=== PATIENT | female | born 1950 | race Caucasian/White ===

== ENCOUNTER 2020-04-30 10:40 | Outpatient (CLI) | payer MEDICARE, OTHER, SELFPAY ==
--- NOTE | 2020-04-30 10:47 | MM_ITS ---
WS: [id number] Bilateral screening digital mammogram, 04/30/2020 Clinical Data: SCREENING Comparison: 04/29/2019, 03/13/2018, 03/12/2017, 02/29/2016, 02/22/2015, 02/03/2014, 01/30/2013, 12/08/2011, 11/23, 02/12/2009, 01/21/2008, 01/18/2007. Findings: The breast parenchymal pattern shows heterogeneous density No spiculated masses or clustered calcific ations are seen. There are no secondary signs of carcinoma. There is a mole marker on the right breas t. MM/[place] [id number] Impression: 1. Negative bilateral mammogram unchanged. 2. Recommend annual screening mammograms. BIRADS: 1-Negative FOLLOW UP: 1 Year Follow-up The CAD food checkers and cashiers supervisor was used.
== END 2020-04-30 10:41 | disposition home or self-care (01) ==
LOC: RADSHAW 10:44
PROVIDERS: PCP Nurse Practitioner Family; Visit Provider Nurse Practitioner Family
DX: Z12.31 Encounter for screening mammogram for malignant neoplasm of breast (principal)
CPT/HCPCS: 77067

== ENCOUNTER 2020-07-29 00:12 | Observation (INO) | payer MEDICARE, OTHER, SELFPAY ==
[2020-07-29] VITALS (14 sets, daily range): BP systolic 136–193; BP diastolic 63–104; PULSE 74–111; RESP 11–22; TEMP 36.3–37.1; O2SAT 94–100; BMI 33.3
--- NOTE | 2020-07-29 00:14 | ECG_ITS ---
[facility] Test Date: 2020-07-29 Pat Name: Yesy Flores Department: Room: Gender: Female Email Campaign Specialist: : 1950 Requested By: Dee Dee Smith Order Number: [id number] Rachell MD: Alva Vera M.D. Measurements Intervals [place] Rate: 103 P: 50 UT: 156 QRS: 12 QRSD: 65 T: 47 QT: 328 QTc: 431 Interpretive Statements SINUS TACHYCARDIA ABNORMAL RHYTHM ECG No previous ECG available for comparison Electronically Signed On 07-29-2020 20:24:33 LIQUOR ESTABLISHMENT MANAGER by Alva Vera M.D. [id number]
--- NOTE | 2020-07-29 00:14 | XR_ITS ---
WS: [id number] Portable AP upright chest, 07/29/2020 Clinical Data: cp Comparison: None. Findings: No nodules, masses or effusions are seen. The heart is normal. The pulmonary vascularity is not increased. No pneumonia or pneumothorax is seen. The aortic arch and descending aorta show minim al calcification and tortuosity. XR/XR chest 1V portable [id number] Impression: Atherosclerosis.
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
--- NOTE | 2020-07-29 00:39 | W.ED.CHESTPA ---
HPI - Chest Pain General: Chief Complaint: Chest Pain Stated Complaint: chest pain Time Seen by Provider: 07/29/20 00:21 Source: patient Mode of arrival: ambulatory Limitations: no limitations History of Present Illness: HPI narrative: 69-year-old female who states over the last 2 days she has had dizziness. She states that anytime she walks she feels like she is drunk and is ataxic and feels nauseous and diaphoretic. States she also had a slight pain in her chest as well. She denies any pain currently but states she continues to be dizzy. Denies any vomiting. States it seems to be worse with movement. Denies any shortness of breath. Denies any focal weakness. Associated symptoms: Reports nausea; Deny dyspnea or fever(s) Review of Systems Const: Denies: fever(s), chills, body aches or change in appetite Eyes: Denies: blurry vision or eye discomfort ENMT: Denies: throat pain or dental pain Card: Denies: chest pain Resp: Denies: dyspnea GI: Reports: nausea : Denies: dysuria Musc: Denies: neck pain or back pain Skin/Breast: Denies: rash Neuro: Reports: difficulty walking and dizziness Psych: Denies: depression Jm/Lymph: Denies: easy bruising All/Imm: Denies: urticaria Physical Exam Const: COMMON NORMALS: no acute distress, patient oriented x3 and healthy appearing HENMT: COMMON NORMALS: normocephalic and atraumatic HEAD & SCALP: normocephalic and atraumatic Eye: COMMON NORMALS: Equal, round and reactive pupils present and EOMs intact bilaterally PUPIL: Yes Equal, round and reactive pupils present Neck/C-Spine: COMMON NORMALS: full ROM and supple Chest: COMMONS NORMALS: normal inspection of the chest and normal palpation of entire chest wall Resp: COMMON NORMALS: normal respiratory effort, No retractions, No use of accessory muscles and clear to auscultation bilaterally AUSCULTATION: clear to auscultation bilaterally Cardio: COMMON NORMALS: regular rate, regular rhythm and No murmurs present (Cardio) RATE: regular rate RHYTHM: regular rhythm GI: COMMON NORMALS: Normal to inspection, nondistended, normoactive bowel sounds present, Soft to palpation, non-tender and no masses PALPATION: Yes Soft to palpation Extremity: COMMON NORMALS: normal to inspection and full ROM Neuro: COMMON NORMALS: patient oriented x3, moves all extremities and no focal motor deficits Psych: COMMON NORMALS: mental status grossly normal, Normal thought process present and cooperative THOUGHT PROCESS: Normal thought process present Skin: COMMON NORMALS: no rashes or lesions noted and no wounds GENERAL SKIN EXAM: no rashes or lesions noted Course Vital Signs: Vital signs: Vital Signs Temperature 97.3 F L 07/29/20 00:20 Pulse Rate 84 07/29/20 02:36 Respiratory Rate 12 07/29/20 02:36 Blood Pressure 159/63 07/29/20 02:36 Pulse Oximetry 96 07/29/20 02:36 MDM - Chest Pain MDM Narrative: Medical decision making narrative: Edie presents here with vertigo along with high blood pressure and chest pain. Her CT scan here is normal and her vertigo is improved. She has not had any chest pain here. I did speak to her and will admit her for observation at this time. She has no signs of acute stroke with her vertigo. Her symptoms been going on for 2 to 3 days and she is not a TPA candidate due to length Lab Data: Labs: Lab Results 07/29/20 07/29/20 07/29/20 Range/Units 00:25 00:25 00:25 WBC 12.6 H (4.0-10.0) 10^3/ uL RBC 4.57 (4.1-5.3) 10^6/u L Hgb 13.3 (11.5-15.3) g/dL Hct 40.0 (37.0-47.0) % MCV 87.5 (81-99) fL MCH 29.1 (28.0-34.0) pg MCHC 33.3 (30.0-36.0) g/dL RDW 12.8 (12.1-15.1) % Plt Count 388 (130-400) 10^3/c mm MPV 9.9 (7.4-10.4) fL Neut % (Auto) 42.4 % Lymph % (Auto) 46.0 % [place] % (Auto) 7.9 % Eos % (Auto) 2.4 % Baso % (Auto) 0.9 % Neut # (Auto) 5.35 (1.8-7.7) 10^3/u L Lymph # (Auto) 5.8 H (0.8-4.8) 10^3/u L [place] # (Auto) 1.0 H (0.2-0.9) 10^3/u L Eos # (Auto) 0.3 (0.0-0.8) 10^3/u L Baso # (Auto) 0.1 (0.0-0.1) 10^3/u L Nucleated RBC % (a uto) 0 % Nucleated RBCs # 0.0 /100WBC Sodium 135 L (136-145) mmol/L Potassium 3.9 (3.5-5.1) mmol/L Chloride 97 L (98-107) mmol/L Carbon Dioxide 26 (22-29) mmol/L Anion Gap 15.9 (5-19) BUN 13 (8-23) mg/dL Creatinine 0.6 (0.5-0.9) mg/dL GFR Calculation Not Reportable Glucose 170 H (65-115) mg/dL Calculated Osmolal ity 284 L (285-295) mOsm/k g Calcium 9.6 (8.5-10.5) mg/dL Total Bilirubin 0.2 (0.15-1.2) mg/dL AST 16 (0-32) U/L ALT 26 (0-33) U/L Alkaline Phosphata se 100 (35-105) IU/L Troponin T Baselin e 6 (0-10) ng/L Troponin T 120 Min bree (0-10) ng/L Delta Troponin T (0-10) ABS# Total Protein 7.1 (6.6-8.7) g/dL Albumin 4.3 (3.5-5.2) g/dL Globulin 2.8 (1.3-4.6) g/dL 07/29/20 Range/Units 01:52 WBC (4.0-10.0) 10^3/ uL RBC (4.1-5.3) 10^6/u L Hgb (11.5-15.3) g/dL Hct (37.0-47.0) % MCV (81-99) fL MCH (28.0-34.0) pg MCHC (30.0-36.0) g/dL RDW (12.1-15.1) % Plt Count (130-400) 10^3/c mm MPV (7.4-10.4) fL Neut % (Auto) % Lymph % (Auto) % [place] % (Auto) % Eos % (Auto) % Baso % (Auto) % Neut # (Auto) (1.8-7.7) 10^3/u L Lymph # (Auto) (0.8-4.8) 10^3/u L [place] # (Auto) (0.2-0.9) 10^3/u L Eos # (Auto) (0.0-0.8) 10^3/u L Baso # (Auto) (0.0-0.1) 10^3/u L Nucleated RBC % (a uto) % Nucleated RBCs # /100WBC Sodium (136-145) mmol/L Potassium (3.5-5.1) mmol/L Chloride (98-107) mmol/L Carbon Dioxide (22-29) mmol/L Anion Gap (5-19) BUN (8-23) mg/dL Creatinine (0.5-0.9) mg/dL GFR Calculation Glucose (65-115) mg/dL Calculated Osmolal ity (285-295) mOsm/k g Calcium (8.5-10.5) mg/dL Total Bilirubin (0.15-1.2) mg/dL AST (0-32) U/L ALT (0-33) U/L Alkaline Phosphata se (35-105) IU/L Troponin T Baselin e (0-10) ng/L Troponin T 120 Min bree 6.43 (0-10) ng/L Delta Troponin T 0.43 (0-10) ABS# Total Protein (6.6-8.7) g/dL Albumin (3.5-5.2) g/dL Globulin (1.3-4.6) g/dL Imaging Data^: CXR: Attestation: I personally reviewed and interpreted this imaging study as follows: My impression: no acute abnormality EKG Data^: EKG 1: Attestation: I personally reviewed and interpreted this EKG as follows: EKG interpretation date: 07/29/20 EKG interpretation time: 00:21 Interpretation: sinus tach hr [address] or t wave abnormalities qrs 65 qtc 388 Discharge Plan Discharge Patient Disposition: Admitted As Inpatient Clinical Impression: Vertigo Chest pain Qualifiers: Chest pain type: unspecified Qualified Code(s): R07.9 - Chest pain, unspecified Hypertension Qualifiers: Hypertension type: unspecified Qualified Code(s): I10 - Essential (primary) hypertension Condition: Stable Coding Level of Care Code ED Scrip Clerk for Hu Fwd Exam Comprehensive
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
[2020-07-29 00:53] LABS: Basophils # 0.1 10^3/uL (0.0-0.1); Basophils % 0.9 %; Eosinophils # 0.3 10^3/uL (0.0-0.8); Eosinophils % 2.4 %; Hemoglobin 13.3 g/dL (11.5-15.3); Lymphocytes # 5.8 10^3/uL (0.8-4.8); Mean Corpuscular HGB Conc 33.3 g/dL (30.0-36.0); Mean Corpuscular Hemoglobin 29.1 pg (28.0-34.0); Mean Corpuscular Volume 87.5 fL (81-99); Mean Platelet Volume 9.9 fL (7.4-10.4); Monocytes % 7.9 %; Neutrophils # 5.35 10^3/uL (1.8-7.7); Neutrophils % 42.4 %; Nucleated Red Blood Cells % 0 %; Platelet Count 388 10^3/cmm (130-400); Red Blood Count 4.57 10^6/uL (4.1-5.3); Red Cell Distribution Width 12.8 % (12.1-15.1); White Blood Count 12.6 10^3/uL (4.0-10.0)
--- NOTE | 2020-07-29 01:05 | PC.NURSE ---
pt states she adm 324 of ASA at home around 2100. notified. OK to hold on med adm
[2020-07-29 01:41] LABS: Alanine Aminotransferase 26 U/L (0-33); Albumin Level 4.3 g/dL (3.5-5.2); Alkaline Phosphatase 100 IU/L (35-105); Anion Gap 15.9 (5-19); Aspartate Amino Transferase 16 U/L (0-32); Blood Urea Nitrogen 13 mg/dL (8-23); Calcium 9.6 mg/dL (8.5-10.5); Carbon Dioxide 26 mmol/L (22-29); Chloride 97 mmol/L (98-107); Globulin 2.8 g/dL (1.3-4.6); Glucose 170 mg/dL (65-115); Osmolality Calculated 284 mOsm/kg (285-295); Potassium 3.9 mmol/L (3.5-5.1); Sodium 135 mmol/L (136-145); Total Bilirubin 0.2 mg/dL (0.15-1.2); Total Protein 7.1 g/dL (6.6-8.7)
[2020-07-29 01:43] LABS: Troponin(5th) Baseline 6 ng/L (0-10)
[2020-07-29 01:57] LABS: Slide Review Slide Review Perform
--- NOTE | 2020-07-29 02:14 | ECG_ITS ---
[facility] Test Date: 2020-07-29 Pat Name: Yesy Flores Department: Room: Gender: Female [employer] Officer: : 1950 Requested By: Dee Dee Smith Order Number: [id number] Rachell MD: Alva Vera M.D. Measurements Intervals [place] Rate: 87 P: 64 ME: 180 QRS: 6 QRSD: 85 T: 47 QT: 360 QTc: 434 Interpretive Statements SINUS RHYTHM No previous ECG available for comparison Electronically Signed On 07-29-2020 20:30:06 MALE INFERTILITY SPECIALIST by Alva Vera M.D. [id number]
[2020-07-29 02:30] LABS: Troponin 5 2HR 6.43 ng/L (0-10); Troponin 5 2HR Delta 0.43 ABS# (0-10)
--- NOTE | 2020-07-29 02:41 | P.HP_ITS ---
Providers/Chief Complaint Primary Care Provider: Mirian Pandey Chief Complaint: chest pain History of Present Illness Yesy Flores is a 69 year old female with a history of diabetes mellitus type 2 and hyperlipidemia presented to the emergency department with a complaint of sudden onset of dizziness and vertigo with associated diaphoresis and clamminess. Patient was concerned he was having a heart attack or stroke. She denies any chest pain. She was tachycardic on arrival. Her initial troponin in the ED is negative. EKG showed no significant ischemic changes. Patient's systolic blood pressure was severely elevated to the 190s. She denies history of hypertension. She also mention she has been getting intermittent vertigo with is triggered by changes in head position occur mostly at night. Per report patient was quite anxious when she presented. She is hospitalized for further evaluation and management. Review of Systems Narrative: She denied any fever, denied any headache, no limb weakness, no problem with speech. Except as documented all other systems are negative. Medications/Allergies Allergies Allergy/AdvReac Type Severity Reaction Status Date / Time Cssexlc-Nrg-Qey Reductase Allergy ADV-Weaknes Verified 07/29/20 00:25 Inhibitor s Sulfa (Sulfonamide Allergy ALGY-Rash Verified 07/29/20 00:25 Antibiotics) PFSH Acute PFSH: Medical History (Updated 07/29/20 @ 07:33 by Adama Leal MD) Accelerated hypertension Cervical herniated disc Hyperlipidemia Hypertension Hypothyroidism Sciatica Type 2 diabetes mellitus Vertigo Family History (Updated 07/29/20 @ 03:28 by Adama Leal MD) Father CAD (coronary artery disease) Mother Stroke Social History (Updated 07/29/20 @ 03:28 by Adama Leal MD) Smoking and tobacco status: never smoked Alcohol intake: never Substance/Drug Use: never Housing: House Vitals/I&O/Wt Last Vital Signs Temp 97.3 F L 07/29/20 00:20 Pulse 84 07/29/20 02:36 Resp 12 07/29/20 02:36 BP 159/63 07/29/20 02:36 Pulse Ox 96 07/29/20 02:36 Weight last 48 hrs Weight 74.843 kg Physical Exam Const: COMMON NORMALS: no acute distress, patient oriented x3, alert and well nourished HENMT: COMMON NORMALS: normocephalic, atraumatic and hearing grossly normal bilaterally MOUTH: Normal oral and palatal mucosa present Eye: COMMON NORMALS: Equal, round and reactive pupils present, EOMs intact bilaterally, conjunctivae normal and no scleral icterus EOM: No Nystagmus present Neck/C-Spine: COMMON NORMALS: no lymphadenopathy, supple, no JVD and Thyroid normal Lymph: LYMPHATIC: no lymphadenopathy noted Chest: COMMONS NORMALS: normal inspection of the chest and normal palpation of entire chest wall Resp: COMMON NORMALS: normal respiratory effort, No use of accessory muscles and clear to auscultation bilaterally Cardio: COMMON NORMALS: regular rhythm, S1 normal heart sound present and S2 normal heart sound present RATE: tachycardic GI: COMMON NORMALS: Normal to inspection, nondistended, normoactive bowel sounds present, Soft to palpation, non-tender and No hepatosplenomegaly present : COMMON NORMALS: Yes no CVA tenderness Back/Pelvis: COMMON NORMALS: no CVA tenderness and thoraco-lumbar ROM normal Extremity: COMMON NORMALS: normal to inspection, no clubbing, cyanosis or edema and no pedal edema Neuro: COMMON NORMALS: patient oriented x3, CN's II-XII intact bilaterally, no focal motor deficits and no sensory deficits noted Psych: COMMON NORMALS: mental status grossly normal, Normal thought process present, cooperative, normal affect and speech normal Skin: COMMON NORMALS: no rashes or lesions noted, turgor normal and no jaundice Data : 07/29/20 00:25 07/29/20 00:25 A&P Assessment and plan (1) Vertigo: Status: Acute (2) Accelerated hypertension: Status: Acute (3) Type 2 diabetes mellitus: Status: Acute (4) Hyperlipidemia: Status: Acute (5) Hypothyroidism: Status: Acute Additional A&P Information Placed under observation. Trend troponin to make sure symptoms not related to ACS. Patient likely has benign positional vertigo Obtain MRI of the brain to rule out acute CVA. Could also be TIA given associated elevated blood pressure. Aspirin 162 mg daily, meclizine as needed. PT to evaluate for [place] [employer]. Check TSH. Insulin sliding scale for glucose management. Blood pressure control-start low-dose amlodipine. Check lipid profile. IV hydration normal saline. Attestations Medical Necessity Statement*: Patient needs to be hospitalized for further evaluation for acute CVA and vertigo. She is expected to spend less than 2 midnights. Time Spent in Patient Care: 67 minutes. Coding Level of Care Code Acute Stencil Sprayer for Chg Fwd Exam Comprehensive Diagnoses Vertigo R42 Accelerated hypertension I10 Type 2 diabetes mellitus E11.9 Hyperlipidemia E78.5 Hypothyroidism E03.9
--- NOTE | 2020-07-29 06:11 | PC.NURSE ---
pt provided inpatient hospital bed for comfort
[2020-07-29 06:29] LABS: Glucose Point of Care 166 mg/dL (70-110)
[2020-07-29] MEDS: sodium chloride 0.9% 1,000 ML 75 ML IV ×2 (06:30→16:13)
[2020-07-29] MEDS: enoxaparin 40 mg/0.4 mL Syringe SUBCUT (06:32)
[2020-07-29] MEDS: aspirin 81 mg EC Tablet 162 MG PO (09:07)
[2020-07-29 09:52] LABS: Glucose Point of Care 232 mg/dL (70-110)
--- NOTE | 2020-07-29 10:15 | MR_ITS ---
WS: [id number] MRI BRAIN WITHOUT CONTRAST HISTORY: Vertigo COMPARISON: None available. TECHNIQUE: Diffusion imaging, multiplanar T1, T2 and FLAIR imaging obtained. No evidence for acute infarct or hemorrhage. Ann-white matter differentiation is normal. Very mild atrophy. No significant chronic white matter disease. Ventricles and extra-axial spaces are normal. No inferior displacement of cerebellar tonsils. The sella turcica and pituitary gland are unremarkabl e. Posterior fossa is also unremarkable. Dural venous sinuses and red devil of [place] demonstrate no abnormality on this unenhanced studies. Paranasal sinuses: Clear. Mastoid air cells: Normal. Calvarium and scalp: Intact. MR/MR head wo con* [id number] IMPRESSION: 1. No evidence for an acute infarct or hemorrhage. 2. Very mild cerebral atrophy.
[2020-07-29 10:21] LABS: Troponin 5 6HR 8.46 ng/L (0-10)
--- NOTE | 2020-07-29 10:39 | PC.CHAP ---
Pastoral Care Encounter/Spiritual Assessment Type of Contact [] Declined rn gynecology visit [] Patient/Family/Request visit [] Outpatient visit [x] Follow-up visit [] Physician referral [] Code/Alert [] Routine visit [] Staff referral [] Actively dying [] Patient sleeping [] Family support [] [] Out of room [] Palliative care [] [] Receiving care in room [] Pre-surgical visit [] Trauma [] Long length of stay [] ICU visit [] Other: Relational/Emotional Strength [] Patient feels connected with others/family/visitors/staff [] Distress [] Loneliness/isolation [] Abandonment Spirituality of Patient [] Person of Joanne [] Attends Lutheran of their Joanne [] Believes in Prayer [] Reads Bible or Orthodox materials [] There are Spiritual issues to be addressed Registered Nurse Hh Case Manager Interventions [] Prayer [] Active listening [] Non-anxious presence [] Spiritual/emotional support [] Crisis/trauma care [] Spiritual counseling [] Bereavement support [] Provided bereavement packet [] Provided Bible/devotional materials [] Provided toy/stuffed animal, coloring book to patient or family member [] Provided Communion [] Anointing/[place] [] Salvation [] Completed spiritual assessment [] Other: Impact on Illness or Injury [] Angry [] Fearful [] Anxious [] Often cries [] Exhaustion [] Unable to work [] Unable to attend mandaeism [] Unable to walk/stand [] Unable to read [] Unable to drive [] Unable to eat/drink [] Unable to sleep [] Unable to be with family [] Patient intubated [] Other: Summary Follow-up visit Time spent with patient 6 mins
[2020-07-29 12:09] LABS: Glucose Point of Care 177 mg/dL (70-110)
--- NOTE | 2020-07-29 15:40 | USCV_ITS ---
Yesy Flores Age: 69 Gender: F : 1950 Exam Date: 07/29/2020 16:08 Ordering Phys: Negro Ko MD Technologist: Wilbert Ruvalcaba Exam Location: [facility] [place] Indication: lightheadedness and dizziness BP: 135 / 72 HR: 89 Rhythm: Sinus Technical Quality: Adequate MEASUREMENTS (Male / Female) Normal Values 2D ECHO LV Diastolic Diameter PLAX 3.5 cm 4.2 - 5.9 / 3.9 - 5.3 cm LV Systolic Diameter PLAX 2.2 cm LV Chamber Size 2.2 cm IVS Diastolic Thickness 1.1 cm 0.6 - 1.0 / 0.6 - 0.9 cm IVS Systolic Thickness 1.3 cm LVPW Diastolic Thickness 1.5 cm 0.6 - 1.0 / 0.6 - 0.9 cm LVPW Systolic Thickness 2.1 cm RV Chamber Size 3.2 cm LVOT Diameter 2.1 cm LV Ejection Fraction 2D Teich 67.4 % LV Ejection Fraction MOD 2C 69.4 % LV Ejection Fraction 2C AL 69.4 % LA Diameter 2.6 cm LA Width 2.5 cm LA Height 3.6 cm RA Width 2.2 cm RA Height 2.0 cm Aorta at Sinotubular Diameter 2.4 cm M-MODE LV Diastolic Diameter MM 5.0 cm 4.2 - 5.9 / 3.9 - 5.3 cm LV Systolic Diameter MM 3.3 cm LV Ejection Fraction MM Teich 60.9 % IVS Diastolic Thickness MM 0.9 cm 0.6 - 1.0 / 0.6 - 0.9 cm IVS Systolic Thickness MM 1.2 cm LVPW Diastolic Thickness MM 0.8 cm 0.6 - 1.0 / 0.6 - 0.9 cm LVPW Systolic Thickness MM 1.0 cm Aortic Annulus Diameter 2.9 cm LA Ao Ratio MM 1.0 MV E Point Septal Separation 0.6 cm DOPPLER AV Peak Velocity 114.0 cm/s LVOT Peak Velocity 97.0 cm/s AV Area Cont Eq vti 2.5 cm squared AV Area Cont Eq pk 2.9 cm squared MV Area PHT 4.9 cm squared Mitral E to A Ratio 0.8 MV E' Velocity 36.0 cm/s Mitral E to MV E' Ratio 6.1 Mitral E to LV E' Lateral Ratio 6.2 Mitral E to LV E' Septal Ratio 6.0 TR Peak Velocity 161.0 cm/s TR Peak Gradient 10.4 mmHg TV Peak E Velocity 64.0 cm/s Right Atrial Pressure 3.0 mmHg Pulmonary Artery Systolic Pressu 13.4 mmHg PV Peak Velocity 77.0 cm/s RV Acceleration Time 0.1 s RV Ejection Time 0.3 s RV AcT/ET 0.3 FINDINGS Left Ventricle Normal left ventricular size. LV systolic function is grossly normal. Regional wall motion abnormalities cannot be assessed because of limited visualization. Grade 1 diastolic dysfunction is seen. Right Ventricle The right ventricle is normal in size and function. Right Atrium Not well-visualized Left Atrium The left atrium is normal in size. Mitral Valve Structurally normal mitral valve without significant stenosis or prolapse. There is trace mitral regurgitation. Aortic Valve Grossly normal. No significant aortic stenosis seen. There is no aortic regurgitation. Tricuspid Valve Structurally normal tricuspid valve without significant stenosis or regurgitation. Insufficient TR jet to calculate RVSP. Pulmonic Valve Structurally normal pulmonic valve without significant stenosis. There is no pulmonic regurgitation. Pericardium Normal pericardium without effusion. Aorta Normal ascending aorta dimension. CONCLUSIONS This is a limited quality echocardiogram with poor visualization of cardiac structures. LV systolic function is grossly normal. Grade 1 diastolic dysfunction is seen. No gross valvular abnormalities are seen. No comparison studies are available. Marko Grajeda MD (Electronically Signed) Final Date: 29 July 2020 19:07 S
--- NOTE | 2020-07-29 15:40 | USCV_ITS ---
Yesy Flores Age: 69 Gender: F : 1950 Exam Date: 07/29/2020 16:34 Ordering Phys: Negro Ko MD Technologist: Analisa Araujo Exam Location: [facility] [place] Indication: lightheadedness and dizziness Risk Factors: Previous Vascular Surgery: Right Brachial BP: / Left Brachial BP: / Right Left Velocity (cm/s) Spectral Plaque Velocity (cm/s) Spectral Plaque Syst/Diast Broadening Syst/Diast Broadening 88.90/ 14.00 Prox CCA 49.10 / 14.90 73.60/ 11.40 Mid CCA 43.80 / 10.50 35.00/ 7.00 Distal CCA 48.90 / 15.60 48.20/ 18.40 Prox ICA 58.30 / 21.80 50.80/ 21.00 Mid ICA 56.40 / 17.10 60.40/ 18.40 Distal ICA 58.60 / 18.50 75.30 ECA 79.10 0.82 ICA/CCA 1.34 Antegrade Vertebral Antegrade 32.40/ 9.60 cm/s 27.00/ 9.30 cm/s Tri Subclavian Tri 69.20 43.30 FINDINGS Comparison: none available. No significant elevation of systolic or diastolic velocities. Waveforms are normal. Minimal bilateral, intimal thickening with no elevation of velocity. CONCLUSIONS Bilateral ICA stenosis less than 50%. Mild carotid atherosclerosis. Dr. Mi Potts DO (Electronically Signed) Final Date: 30 July 2020 09:40 S
[2020-07-29 16:33] LABS: Glucose Point of Care 176 mg/dL (70-110)
[2020-07-29 17:33] LABS: Add Urine Microscopic? NO; Bilirubin Urine Neg (Negative); Blood Urine Neg (Negative); Glucose Urine UA 1+ (Normal); Ketones Urine Negative (Negative); Leukocyte Esterase Urine Negative (Negative); Nitrate Urine Negative (Negative); Protein Urine Neg (Negative); Specific Gravity, Urine 1.005 (1.005-1.030); Urine Appearance Clear (CLEAR); Urine Color Yellow (Yellow); Urobilinogen Urine Norm (Negative); pH Urine 6.5 (5-7)
--- NOTE | 2020-07-29 18:20 | P.PN_ITS ---
Subjective Subjective: Interval history: Patient has been having vertigo for the last several days. She denies shortness of breath or chest pain. She has been having some tingling sensation in her right upper extremity. Her MRI was negative. She has cervical degenerative arthritis. She has lymphocytic leukocytosis. She has been having some pain in her right flank area radiating to her right breast for very long period of time and recently she was scheduled for outpatient MRI which she is going to have in several days. Discussed with RT Joni who tried Sunny-Hallpike maneuver and was unable to elicit vertigo. She is currently appears to be asymptomatic. Vitals/I&O/Wt Last Vital Signs Temp 98.7 F 07/29/20 15:22 Pulse 87 07/29/20 15:22 Resp 16 07/29/20 15:22 BP 136/85 07/29/20 15:22 Pulse Ox 100 07/29/20 15:22 07/29/20 07/29/20 07/29/20 06:59 14:59 22:59 Intake Total 557.5 / 557.5 240 / 797.5 Output Total 400 / 400 Balance 557.5 / 557.5 -160 / 397.5 Weight last 48 hrs Weight 74.843 kg Physical Exam Const: COMMON NORMALS: no acute distress and patient oriented x3 Resp: COMMON NORMALS: normal respiratory effort and clear to auscultation bilaterally AUSCULTATION: clear to auscultation bilaterally Cardio: COMMON NORMALS: regular rate, regular rhythm and S2 normal heart sound present RATE: regular rate RHYTHM: regular rhythm HEART SOUNDS: S2 normal heart sound present OTHER: No lower extremity edema GI: COMMON NORMALS: Normal to inspection, nondistended, normoactive bowel sounds present, Soft to palpation and non-tender PALPATION: Yes Soft to palpation Neuro: COMMON NORMALS: patient oriented x3 and no focal motor deficits Skin: NARRATIVE SKIN EXAM: Upper thoracic area, mid spine area large lipoma with very minimal erythema at the bottom which patient reports that recently has been more tender. Patient has no palpable lymphadenopathy including inguinal, axillary and cervical. Data : 07/29/20 00:25 07/29/20 00:25 A&P Assessment and plan (1) Vertigo: Status: Acute (2) Accelerated hypertension: Status: Acute (3) Type 2 diabetes mellitus: Status: Acute (4) Hyperlipidemia: Status: Acute (5) Hypothyroidism: Status: Acute Additional A&P Information Since TIA cannot be completely ruled out I have requested carotid artery ult rasound and echocardiogram. Urine was obtained showing no evidence of UTI. I think it is appropriate to proceed with outpatient MRI of the spine as was previously planned. I have discussed with patient that we need to repeat CBC in 1-2 weeks to make sure her lymphocytic leukocytosis resolves otherwise further evaluation for CLL/SLL will need to be performed. If patient continues to be symptomatic and no significant findings on work-up we will go ahead and dismiss her home tomorrow morning. Attestations Medical Necessity Statement*: Patient with significant underlying medical history including diabetes presents with vertigo requires observation for monitoring and evaluation. 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
[2020-07-29 20:46] LABS: Glucose Point of Care 146 mg/dL (70-110)
[2020-07-30] VITALS: BP 137/80; PULSE 79; RESP 20; TEMP 36.7; O2SAT 99
[2020-07-30 04:00] VITALS: BP 134/83; PULSE 79; RESP 18; TEMP 36.8; O2SAT 98
[2020-07-30 06:17] LABS: Basophils # 0.1 10^3/uL (0.0-0.1); Basophils % 0.9 %; Eosinophils # 0.3 10^3/uL (0.0-0.8); Hematocrit 37.6 % (37.0-47.0); Hemoglobin 12.3 g/dL (11.5-15.3); Lymphocytes # 4.5 10^3/uL (0.8-4.8); Lymphocytes % 43.6 %; Mean Corpuscular HGB Conc 32.7 g/dL (30.0-36.0); Mean Corpuscular Hemoglobin 29.2 pg (28.0-34.0); Mean Corpuscular Volume 89.3 fL (81-99); Mean Platelet Volume 10.3 fL (7.4-10.4); Monocytes # 0.8 10^3/uL (0.2-0.9); Monocytes % 7.9 %; Neutrophils # 4.62 10^3/uL (1.8-7.7); Neutrophils % 44.3 %; Nucleated Red Blood Cells % 0 %; Platelet Count 371 10^3/cmm (130-400); Red Blood Count 4.21 10^6/uL (4.1-5.3); Red Cell Distribution Width 13.2 % (12.1-15.1); White Blood Count 10.4 10^3/uL (4.0-10.0)
[2020-07-30 06:45] LABS: Anion Gap 12.5 (5-19); Blood Urea Nitrogen 12 mg/dL (8-23); Calcium 8.9 mg/dL (8.5-10.5); Carbon Dioxide 25 mmol/L (22-29); Chloride 104 mmol/L (98-107); Chol HDL Ratio 3.79 mg/dL (0.0-4.40); Cholesterol 201 mg/dL (0-200); Glucose 140 mg/dL (65-115); HDL Cholesterol 53 mg/dL (60-100); LDL Cholesterol Calculated 127 mg/dL (50-129); Magnesium 1.7 mg/dL (1.7-2.3); Osmolality Calculated 288 mOsm/kg (285-295); Potassium 3.5 mmol/L (3.5-5.1); Sodium 138 mmol/L (136-145); Thyroid Stimulating Hormone 1.44 uIU/mL (0.27-4.20); Triglycerides 105 mg/dL (0-150)
[2020-07-30 06:50] LABS: Glucose Point of Care 209 mg/dL (70-110)
[2020-07-30 07:41] VITALS: BP 136/81; PULSE 78; RESP 17; TEMP 36.5; O2SAT 100
[2020-07-30] MEDS: aspirin 81 mg EC Tablet 162 MG PO (09:30)
[2020-07-30 11:07] VITALS: BP 145/80; PULSE 78; RESP 16; TEMP 36.6; O2SAT 99
--- NOTE | 2020-07-30 11:25 | P.DS_ITS ---
Discharge Providers Date of Admission: 07/29/20 05:52 Date of Discharge: July 30, 2020 Attending Provider at Admission: Admaa Leal Attending Provider at Discharge: Negro Ko MD Primary Care Provider: Mirian Pandey Diagnoses at Discharge Discharge Diagnosis (1) Vertigo: Status: Acute (2) Accelerated hypertension: Status: Acute (3) Type 2 diabetes mellitus: Status: Acute (4) Hyperlipidemia: Status: Acute (5) Hypothyroidism: Status: Acute (6) Infected sebaceous cyst of skin: Status: Acute Reason for Visit Reason for Visit: chest pain vertigo 99564 R42 Hospital Course Hospital Course Patient presented with vertigo and gradually improved. She was found to have infected sebaceous cyst and it was decided to obtain surgical consultation before we discharge patient. Dr. Galan will see patient later this afternoon and we could possibly do bedside excision. Patient will be placed on Keflex for 7 days. Patient's lymphocytic leukocytosis improved and could be related to infected sebaceous cyst versus acute viral labyrinthitis. Given significant clinical improvement patient will be dismissed. She will continue aspirin. Unfortunately patient cannot tolerate statins. This morning patient denies any shortness of breath or chest pain. Reports feeling well and wants to go home. P.S. Patient was seen by Dr. Galan. We will try Keflex for 1 week with outpatient follow up to make decision for excsion.i Physical Exam Narrative: EXAM NARRATIVE: Patient exam this morning shows clear lungs and regular heart. Abdomen soft nontender with positive bowel sounds. Lower extremities show no edema. No focal neurological findings. Discharge Data Data Completed and Pending: Completed Studies During Hospitalization Category Date Time Status CT cervical spin wo con* [id number] Urge nt Cat Scan 07/29/20 00:[address] head wo con* [id number] Urgent Cat Scan 07/29/20 00:37 Completed XR chest 1V [place] [id number] Stat Exams 07/29/20 00:14 Completed MR head wo con* [id number] Urgent MRI 07/29/20 10:15 Completed CV carotid duplex BI* [id number] Routine Ultrasound 07/29/20 15:40 Completed CV echo complete* [id number] Routine Ultrasound 07/29/20 15:40 Completed Labs from last 24 hours 07/30/20 07/30/20 07/30/20 06:40 04:48 04:48 WBC RBC Hgb Hct MCV MCH MCHC RDW Plt Count MPV Neut % (Auto) Lymph % (Auto) [place] % (Auto) Eos % (Auto) Baso % (Auto) Neut # (Auto) Lymph # (Auto) [place] # (Auto) Eos # (Auto) Baso # (Auto) Nucleated RBC % (a uto) Nucleated RBCs # PT 13.50 INR 1.00 Sodium 138 Potassium 3.5 Chloride 104 Carbon Dioxide 25 Anion Gap 12.5 BUN 12 Creatinine 0.6 GFR Calculation Not Reportable Glucose 140 H POC Glucose 209 H Calculated Osmolal ity 288 Calcium 8.9 Magnesium 1.7 Triglycerides 105 Cholesterol 201 H LDL Cholesterol, C alc 127 HDL Cholesterol 53 L LDL/HDL Ratio 2.40 Cholesterol/HDL Ra dayday 3.79 TSH 1.44 Urine Color Urine Appearance Urine pH Ur Specific Gravit y Urine Protein Urine Glucose (UA) Urine Ketones Urine Blood Urine Nitrate Urine Bilirubin Urine Urobilinogen Ur Leukocyte Kimberly ase 07/30/20 07/29/20 07/29/20 04:48 20:37 17:20 WBC 10.4 H RBC 4.21 Hgb 12.3 Hct 37.6 MCV 89.3 MCH 29.2 MCHC 32.7 RDW 13.2 Plt Count 371 MPV 10.3 Neut % (Auto) 44.3 Lymph % (Auto) 43.6 [place] % (Auto) 7.9 Eos % (Auto) 3.0 Baso % (Auto) 0.9 Neut # (Auto) 4.62 Lymph # (Auto) 4.5 [place] # (Auto) 0.8 Eos # (Auto) 0.3 Baso # (Auto) 0.1 Nucleated RBC % (a uto) 0 Nucleated RBCs # 0.0 PT INR Sodium Potassium Chloride Carbon Dioxide Anion Gap BUN Creatinine GFR Calculation Glucose POC Glucose 146 H Calculated Osmolal ity Calcium Magnesium Triglycerides Cholesterol LDL Cholesterol, C alc HDL Cholesterol LDL/HDL Ratio Cholesterol/HDL Ra dayday TSH Urine Color Yellow Urine Appearance Clear Urine pH 6.5 Ur Specific Gravit y 1.005 Urine Protein Neg Urine Glucose (UA) 1+ Urine Ketones Negative Urine Blood Neg Urine Nitrate Negative Urine Bilirubin Neg Urine Urobilinogen Norm Ur Leukocyte Kimberly ase Negative 07/29/20 07/29/20 16:21 11:39 WBC RBC Hgb Hct MCV MCH MCHC RDW Plt Count MPV Neut % (Auto) Lymph % (Auto) [place] % (Auto) Eos % (Auto) Baso % (Auto) Neut # (Auto) Lymph # (Auto) [place] # (Auto) Eos # (Auto) Baso # (Auto) Nucleated RBC % (a uto) Nucleated RBCs # PT INR Sodium Potassium Chloride Carbon Dioxide Anion Gap BUN Creatinine GFR Calculation Glucose POC Glucose 176 H 177 H Calculated Osmolal ity Calcium Magnesium Triglycerides Cholesterol LDL Cholesterol, C alc HDL Cholesterol LDL/HDL Ratio Cholesterol/HDL Ra dayday TSH Urine Color Urine Appearance Urine pH Ur Specific Gravit y Urine Protein Urine Glucose (UA) Urine Ketones Urine Blood Urine Nitrate Urine Bilirubin Urine Urobilinogen Ur Leukocyte Kimberly ase Vitals: Last Vital Signs Temp 97.8 F 07/30/20 11:07 Pulse 78 07/30/20 11:07 Resp 16 07/30/20 11:07 BP 145/80 07/30/20 11:07 Pulse Ox 99 07/30/20 11:07 Discharge Plan Discharge Patient Disposition: Home Condition: Stable Prescriptions: New cephalexin [Keflex] 500 mg capsule 500 mg PO Q8H 7 Days Qty: 21 RF: 0 Continued methocarbamol 500 mg tablet 500 mg PO BID PRN (Reason: Muscle Pain) RF: 0 Vitamin C 1,000 mg Tablet 1,000 mg PO BID RF: 0 Co Q-10 50 mg Capsule See Rx Instructions .ROUTE .COMPLEX RF: 0 metformin 1,000 mg tablet 1,000 mg PO BID RF: 0 aspirin 81 mg Tablet,Chewable 81 mg PO DAILY RF: 0 montelukast 10 mg tablet 10 mg PO DAILY RF: 0 glipizide 5 mg tablet 5 mg PO BID RF: 0 Vitamin B-12 25 mcg Tablet 500 mcg PO DAILY RF: 0 Vitamin D3 25 mcg (1,000 unit) Capsule 25 mcg PO BID RF: 0 zinc 50 mg Capsule 50 mg PO BID RF: 0 Ocuvite 140-40-4-100 tb-juza-mf-mg Capsule 1 cap PO DAILY RF: 0 krill oil [id number] mg Capsule See Rx Instructions .ROUTE .COMPLEX RF: 0 niacin 500 mg Capsule 500 mg PO DAILY RF: 0 Discharge Orders: Discharge Order (Routine); Ordered 07/30/20 Ordered By: Negro Ko Referrals: Mirian Pandey [Primary Care Provider] - 4-7 days Eron Galan MD [Physician] - 7-10 days Discharge Diet: Advance as tolerated Discharge Activity: Increase activity as tolerated Activity Restrictions/Additional Instructions: Please call your doctor or present to emergency department if your condition worsens or you develop diarrhea, lightheadedness, fatigue or see blood in your stool or black stool. 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
[2020-07-30 12:22] LABS: Glucose Point of Care 178 mg/dL (70-110)
--- NOTE | 2020-07-30 13:30 | PC.CHAP ---
Pastoral Care Encounter/Spiritual Assessment Type of Contact [] Declined ocular care technologist visit [] Patient/Family/Request visit [] Outpatient visit [xx] Follow-up visit [] Physician referral [] Code/Alert [xx] Routine visit [] Staff referral [] Actively dying [] Patient sleeping [] Family support [] [] Out of room [] Palliative care [] [] Receiving care in room [] Pre-surgical visit [] Trauma [] Long length of stay [] ICU visit [] Other: Relational/Emotional Strength [xx] Patient feels connected with others/family/visitors/staff [] Distress [] Loneliness/isolation [] Abandonment Spirituality of Patient [xx] Person of Joanne [xx] Attends Protestant of their Joanne [xx] Believes in Prayer [xx] Reads Bible or Taoism materials [] There are Spiritual issues to be addressed Statistical Assistant Interventions [xx] Prayer [xx] Active listening [xx] Non-anxious presence [] Spiritual/emotional support [] Crisis/trauma care [] Spiritual counseling [] Bereavement support [] Provided bereavement packet [xx] Provided Bible/devotional materials [] Provided toy/stuffed animal, coloring book to patient or family member [] Provided Communion [] Anointing/[place] [] Salvation [xx] Completed spiritual assessment [] Other: Impact on Illness or Injury [] Angry [] Fearful [] Anxious [] Often cries [] Exhaustion [] Unable to work [] Unable to attend oriental orthodox [] Unable to walk/stand [] Unable to read [] Unable to drive [] Unable to eat/drink [] Unable to sleep [] Unable to be with family [] Patient intubated [] Other: Summary Patient will be discharged today. When ocular care technologist entered her room, she was rearranging the chairs and starting to strip bed to relieve staff of that work. Patient stated she could not sit still and needed something physical to do. Patient's niece arrived and entered into visit. They both requested prayer for themselves and their immediate families. Time spent with patient 22 minutes.
--- NOTE | 2020-07-30 14:31 | PM.CONSULT ---
Providers/Reason For Consult Consulting Physican/Specialty*: Negro Ko MD Reason for Consult*: Inflamed sebaceous cyst Attending Physician: Negro Ko MD Primary Care Provider: Mirian Pandey History of Present Illness History of Present Illness Yesy Flores is a 69 year old female was admitted to the hospital yesterday with vertigo and lymphocytic leukocytosis. Patient states that she had a lump on her back for many years but yesterday she developed worsening pain over this lump which is slightly increased in size. Patient denies any history of trauma, skin changes or drainage Review of Systems General: Reports: 10 or more systems reviewed and unremarkable except in HPI and below Meds/Allergies Home Medications and Allergies Home Medications Medication Instructions Recorded Confirmed Last Taken Type Co Q-10 See Rx Instructions .ROUTE .COMPLEX 07/29/20 07/29/20 Unknown History Vitamin C 1,000 mg PO BID 07/29/20 07/29/20 Unknown History Vitamin D3 25 mcg PO BID 07/29/20 07/29/20 Unknown History aspirin 81 mg PO DAILY 07/29/20 07/29/20 Unknown History cyanocobalamin (vitamin B-12) 500 mcg PO DAILY 07/29/20 07/29/20 Unknown History glipizide 5 mg PO BID 07/29/20 07/29/20 Unknown History krill oil See Rx Instructions .ROUTE .COMPLEX 07/29/20 07/29/20 Unknown History metformin 1,000 mg PO BID 07/29/20 07/29/20 Unknown History methocarbamol 500 mg PO BID PRN 07/29/20 07/29/20 Unknown History montelukast 10 mg PO DAILY 07/29/20 07/29/20 Unknown History niacin 500 mg PO DAILY 07/29/20 07/29/20 Unknown History vit C-vit [id number]-[id number]-om-3 1 cap PO DAILY 07/29/20 07/29/20 Unknown History zinc 50 mg PO BID 07/29/20 07/29/20 Unknown History cephalexin [Keflex] 500 mg PO Q8H 7 Days #21 cap 07/30/20 Unknown Rx Allergies Allergy/AdvReac Type Severity Reaction Status Date / Time [id number]-Pxt Reductase Allergy ADV-Weaknes Verified 07/29/20 00:25 Inhibitor s Sulfa (Sulfonamide Allergy ALGY-Rash Verified 07/29/20 00:25 Antibiotics) Current Medications Current Medications Generic Name Dose Route Start Last Admin Trade Name Elizabeth PRN Reason Stop Dose Admin Aspirin 162 mg 07/29/20 09:00 07/30/20 09:30 Aspirin 81 Mg Ec Tablet PO 162 mg DAILY ALEXANDRE Administration Enoxaparin Sodium 40 mg 07/29/20 06:30 07/30/20 06:38 Enoxaparin 40 Mg/0.4 Ml Syringe SUBCUT Not Given Q24H [facility] Sodium Chloride 1,000 mls @ 75 mls/hr 07/29/20 05:56 07/30/20 11:02 Sodium Chloride 0.9% IV Not Given .[id number] [facility] Insulin Aspart 0 unit 07/29/20 08:00 07/30/20 12:37 Insulin Aspart 100 Unit/1 Ml SUBCUT 4 unit WM&BEDTIME ALEXANDRE Administration Protocol PFSH Acute PFSH: Medical History Accelerated hypertension Cervical herniated disc Hyperlipidemia Hypertension Hypothyroidism Sciatica Type 2 diabetes mellitus Vertigo Family History Father CAD (coronary artery disease) Mother Stroke Social History Smoking and tobacco status: never smoked Alcohol intake: never Substance/Drug Use: never Housing: House Vitals/I&O/Wt Last Vital Signs Temp 97.8 F 07/30/20 11:07 Pulse 78 07/30/20 11:07 Resp 16 07/30/20 11:07 BP 145/80 07/30/20 11:07 Pulse Ox 99 07/30/20 11:07 07/29/20 07/30/20 07/30/20 22:59 06:59 14:59 Intake Total 240 / 797.5 1600 / 1600 Output Total 1400 / 1400 350 / 350 Balance -1160 / -602.5 1250 / 1250 Weight last 48 hrs Weight 165 lb Physical Exam Narrative: EXAM NARRATIVE: HEENT: Normocephalic Eye: Sclera /conjunctiva normal Abdomen: Soft to palpation Neurological: Oriented to place person and time Skin: Intact, 3 x 3 cm sebaceous cyst on the back, inflamed, no significant overlying skin changes, tender A&P Assessment and plan (1) Infected sebaceous cyst of skin: 69-year-old female with inflamed sebaceous cyst on the back which has previously been completely asymptomatic. Discussed treatment options with the patient. Since this was the first episode we will treat her with Keflex 500 mg p.o. 3 times daily for 7 days. I will see her back in clinic in 10 days. If there is no improvement or patient continues to be symptomatic then we can plan for excision of sebaceous cyst. 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
[2020-07-30 14:47] VITALS: PULSE 101; O2SAT 98
[2020-07-30 15:56] VITALS: BP 145/80; PULSE 101; RESP 16; TEMP 36.6; O2SAT 98
== END 2020-07-30 15:59 | disposition home or self-care (01) ==
LOC: ER 02:44 → ER IP 07:16 → MEDSURG 09:10
PROVIDERS: Admitting Provider Internal Medicine; Emergency Provider Emergency Medicine; PCP Nurse Practitioner Family; Visit Provider Internal Medicine
DX: I65.23 Occlusion and stenosis of bilateral carotid arteries (principal); R07.9 Chest pain, unspecified; R42 Dizziness and giddiness; I10 Essential (primary) hypertension; E11.9 Type 2 diabetes mellitus without complications; E78.5 Hyperlipidemia, unspecified; E03.9 Hypothyroidism, unspecified; Z82.49 Family history of ischemic heart disease and other diseases of the circulatory system; Z82.3 Family history of stroke; Z79.82 Long term (current) use of aspirin; Z79.84 Long term (current) use of oral hypoglycemic drugs; L72.3 Sebaceous cyst; L08.9 Local infection of the skin and subcutaneous tissue, unspecified
CPT/HCPCS: 12345; 36415; 36416; 70450; 70551; 71045; 72125; 80048; 80053; 80061; 81003; 82962; 83735; 84443; 84484; 85025; 85610; 93005; 93306; 93880; 96360; 96361; 96372; 97161; 99282; 99285; G0378; J1650; J1815; J7030

== ENCOUNTER 2021-05-12 12:38 | Outpatient (CLI) | payer MEDICARE, OTHER, SELFPAY ==
--- NOTE | 2021-05-12 13:21 | MM_ITS ---
WS: [id number] BILATERAL DIGITAL SCREENING MAMMOGRAPHY WITH CAD CLINICAL INFORMATION: SCREENING HISTORY: Screening mammogram. No current complaints. COMPARISON: April 30, 2020 TECHNIQUE: Bilateral CC and MLO views. FINDINGS: The breasts are composed of heterogeneous fibroglandular density tissue, which can limit the detectio n of small underlying mass lesions. Punctate and lucent centered calcifications. Vascular calcificati on. No suspicious mass, asymmetry, calcifications, or architectural distortion. No evidence of malign juan. MM/[place] [id number] IMPRESSION: BI-RADS: 2-Benign FOLLOW UP: 1 Year Follow-up Recommend return to annual screening mammography.
== END 2021-05-12 12:39 | disposition home or self-care (01) ==
PROVIDERS: PCP Nurse Practitioner Family; Visit Provider Nurse Practitioner Family
DX: Z12.31 Encounter for screening mammogram for malignant neoplasm of breast (principal)
CPT/HCPCS: 77067

== ENCOUNTER 2021-09-14 06:00 | Outpatient (RCR) | payer MEDICARE, OTHER, SELFPAY | END 2021-09-22 23:59 | disposition home or self-care (01) | LOC: SPT 06:00 | PROVIDERS: PCP Nurse Practitioner Family; Referring Provider Nurse Practitioner Family; Visit Provider Nurse Practitioner Family | DX: M75.51 Bursitis of right shoulder (principal) | CPT/HCPCS: 97110; 97161 ==

== ENCOUNTER 2021-09-23 06:00 | Outpatient (RCR) | payer MEDICARE, OTHER, SELFPAY | END 2021-10-20 17:15 | disposition home or self-care (01) | LOC: SPT 06:00 | PROVIDERS: PCP Nurse Practitioner Family; Referring Provider Nurse Practitioner Family; Visit Provider Nurse Practitioner Family | DX: M75.51 Bursitis of right shoulder (principal) | CPT/HCPCS: 97110 ==

== ENCOUNTER → 2021-12-14 08:06 | Outpatient (BNVA) | payer MEDICARE, SELFPAY | PROVIDERS: PCP Nurse Practitioner Family; Referring Provider Nurse Practitioner Family; Visit Provider Specialist | DX: M77.8 Other enthesopathies, not elsewhere classified (principal); M25.511 Pain in right shoulder | CPT/HCPCS: 20610; 73030; 99204; J1100; J2795; J3301 ==

== ENCOUNTER 2021-12-18 21:53 | Inpatient (IN) | payer MEDICARE, SELFPAY ==
[2021-12-18 22:10] VITALS: PULSE 49; RESP 18; O2SAT 97
[2021-12-18 22:11] VITALS: BMI 31.7
--- NOTE | 2021-12-18 22:16 | ECG_ITS ---
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 Measurements Intervals [place] Rate: 49 P: 49 [place]: 154 QRS: 11 QRSD: 79 T: 52 QT: 423 QTc: 383 Interpretive Statements SINUS BRADYCARDIA LOW QRS VOLTAGE IN PRECORDIAL LEADS [QRS DEFLECTION < 1.0 mV IN CHEST LEADS] Compared to ECG 07/29/2020 02:32:16 Low QRS voltage now present Sinus rhythm no longer present Electronically Signed On 12-19-2021 17:33:12 CDT by Marko Grajeda M.D. [id number]
--- NOTE | 2021-12-18 22:16 | XRR_ITS ---
PROCEDURE INFORMATION: Exam: XR Chest Exam date and time: 12/18/2021 10:33 PM Age: 71 years old Clinical indication: Angina; Additional info: Cp TECHNIQUE: Imaging protocol: Radiologic exam of the chest. Views: 1 view. COMPARISON: CR XR chest 1V portable [id number] 07/29/2020 12:25 AM FINDINGS: Tubes, catheters and devices: Transdermal pacer leads projecting over the cardiac silhouette and right axilla. Lungs: Hazy density at the left lung base may be pneumonia infiltrates. No consolidation. Pleural spaces: Unremarkable. No pleural effusion. No pneumothorax. Heart/Mediastinum: Unremarkable. No cardiomegaly. Bones/joints: Unremarkable. XR/XR chest 1V portable [id number] IMPRESSION: Possible pneumonia infiltrates at the left lung base.
[2021-12-18] MEDS: clopidogrel 300 mg Tablet 600 MG PO (22:21)
--- NOTE | 2021-12-18 22:21 | W.ED.CHESTPA ---
HPI - Chest Pain General: Chief Complaint: Chest Pain Stated Complaint: Chest Upper Back Pain Time Seen by Provider: 12/18/21 22:09 Source: patient and family History of Present Illness: 71 year old female with no prior history of coronary disease. She presents with chest discomfort. This started around 9:45 PM. She was at rest at home. It continues. She is nauseated. She is not overly short of breath, although she notes it is difficult to get a deep breath. She vomited one time at home. She denies any fever or cough. She has not had similar symptoms prior. MD complaint: chest pain and chest heaviness Onset (ago): minute(s) Timing of current episode: constant Prior episodes: No Onset: during rest Pain location: substernal Pain radiation: back Quality: tightness, aching and heaviness Relieving factors: nothing Exacerbating factors: nothing Associated symptoms: Reports diaphoresis, dyspnea, nausea, sense of impending doom and vomiting; Deny abdominal pain, fever(s), leg edema or palpitations Treatment prior to arrival: aspirin (which she believes she vomited) Review of Systems Const: Reports: diaphoresis; Denies: fever(s) ENMT: Denies: throat pain Card: Reports: chest pain; Denies: palpitations Resp: Reports: dyspnea GI: Reports: nausea and vomiting; Denies: abdominal pain Musc: Reports: back pain; Denies: neck pain Neuro: Denies: headache(s) PFS ED PFSH: Medical History Accelerated hypertension Cervical herniated disc Hyperlipidemia Hypertension Hypothyroidism Sciatica Type 2 diabetes mellitus Vertigo Family History Father CAD (coronary artery disease) Mother Stroke Social History Smoking and tobacco status: never smoked Alcohol intake: never Housing: House Physical Exam Const: GENERAL APPEARANCE: cooperative and ill appearing; not comfortable ORIENTATION/CONSCIOUSNESS: Yes awake HENMT: COMMON NORMALS: normocephalic, atraumatic and Normal external nose present HEAD & SCALP: normocephalic and atraumatic FACE & SINUS: normal facial exam and face symmetric NOSE: Normal external nose present Eye: COMMON NORMALS: Equal, round and reactive pupils present and EOMs intact bilaterally PUPIL: Yes Equal, round and reactive pupils present Neck/C-Spine: GENERAL: Yes trachea midline Chest: CHEST: Yes Symmetrical chest wall rise Resp: COMMON NORMALS: clear to auscultation bilaterally EFFORT & INSPECTION: Yes tachypneic AUSCULTATION: clear to auscultation bilaterally Cardio: COMMON NORMALS: regular rhythm RATE: bradycardic RHYTHM: regular rhythm GI: COMMON NORMALS: Normal to inspection, nondistended, normoactive bowel sounds present PALPATION: No Tenderness to palpation present (GI) Extremity: COMMON NORMALS: no pedal edema Neuro: PAOLA COMA SCALE: document GCS findings Paola coma scale eye opening: Spontaneous [place] coma scale verbal response: Orientated [place] coma scale motor response: Obey commands [place] coma scale total score: 15 Course Consultations: Consultation #1: Nicci Time: 22:12 Vital Signs: Vital signs: Vital Signs Temperature 98.4 F 12/19/21 04:00 Pulse Rate 63 12/20/21 00:00 Respiratory Rate 13 12/20/21 00:00 Blood Pressure 105/69 12/20/21 00:00 Pulse Oximetry 95 12/20/21 00:00 MDM - Chest Pain Medical Decision Making 71 year old female with no prior history of coronary disease. She presents with chest discomfort. This started around 9:45 PM. She was at rest at home. It continues. She is nauseated. She is not overly short of breath, although she notes it is difficult to get a deep breath. She vomited one time at home. She denies any fever or cough. She has not had similar symptoms prior. Lab Data : 12/18/21 22:10 12/18/21 22:10 Radiology Impressions Chest X-Ray 12/18/21 22:16 IMPRESSION: Possible pneumonia infiltrates at the left lung base. Laboratory Results WBC 19.6 10^3/uL (4.0-10.0) H 12/18/21 22:10 RBC 4.76 10^6/uL (4.1-5.3) 12/18/21 22:10 Hgb 13.8 g/dL (11.5-15.3) 12/18/21 22:10 Hct 40.9 % (37.0-47.0) 12/18/21 22:10 MCV 85.9 fl (81-99) 12/18/21 22:10 MCH 29.0 pg (28.0-34.0) 12/18/21 22:10 MCHC 33.7 g/dL (30.0-36.0) 12/18/21 22:10 RDW 13.1 % (12.1-15.1) 12/18/21 22:10 Plt Count 461 10^3/cmm (130-400) H 12/18/21 22:10 MPV 9.8 fL (7.4-10.4) 12/18/21 22:10 Neut % (Auto) 61.3 % 12/18/21 22:10 Lymph % (Auto) 29.4 % 12/18/21 22:10 Mcdonough % (Auto) 7.8 % 12/18/21 22:10 Eos % (Auto) 0.2 % 12/18/21 22:10 Baso % (Auto) 0.5 % 12/18/21 22:10 Neut # (Auto) 11.99 10^3/uL (1.8-7.7) H 12/18/21 22:10 Lymph # (Auto) 5.7 10^3/uL (0.8-4.8) H 12/18/21 22:10 Mcdonough # (Auto) 1.5 10^3/uL (0.2-0.9) H 12/18/21 22:10 Eos # (Auto) 0.0 10^3/uL (0.0-0.8) 12/18/21 22:10 Baso # (Auto) 0.1 10^3/uL (0.0-0.1) 12/18/21 22:10 Nucleated RBC % (auto) 0 % 12/18/21 22:10 Nucleated RBCs # 0.0 /100WBC 12/18/21 22:10 PT 11.90 SECONDS (12.1-14.9) L 12/18/21 22:10 INR 0.85 (0.8-1.2) 12/18/21 22:10 APTT 23.6 SECONDS (23.9-36.7) L 12/18/21 22:10 Sodium 135 mmol/L (136-145) L 12/18/21 22:10 Potassium 4.4 mmol/L (3.5-5.1) 12/18/21 22:10 Chloride 99 mmol/L (98-107) 12/18/21 22:10 Carbon Dioxide 23 mmol/L (22-29) 12/18/21 22:10 Anion Gap 17.4 (5-19) 12/18/21 22:10 BUN 15 mg/dL (8-23) 12/18/21 22:10 Creatinine 0.9 mg/dL (0.5-0.9) 12/18/21 22:10 GFR Calculation Not Reportable 12/18/21 22:10 Glucose 345 mg/dL (65-115) H 12/18/21 22:10 Calculated Osmolality 295 mOsm/kg (285-295) 12/18/21 22:10 Calcium 9.6 mg/dL (8.5-10.5) 12/18/21 22:10 Total Bilirubin 0.2 mg/dL (0.15-1.2) 12/18/21 22:10 AST 13 U/L (0-32) 12/18/21 22:10 ALT 23 U/L (0-33) 12/18/21 22:10 Alkaline Phosphatase 112 IU/L (35-105) H 12/18/21 22:10 Creatine Kinase 64 U/L (26-192) 12/18/21 22:10 Troponin T Baseline 27 ng/L (0-10) H 12/18/21 22:10 NT-Pro-B Natriuret Pep 45 pg/mL (0-125) 12/18/21 22:10 Total Protein 7.8 g/dL (6.6-8.7) 12/18/21 22:10 Albumin 4.6 g/dL (3.5-5.2) 12/18/21 22:10 Globulin 3.2 g/dL (1.3-4.6) 12/18/21 22:10 Critical Care Time Critical Care Time: Critical Care Time: Yes Total Critical Care Time: 30 Attestation: This case had a high probability of a clinically significant, sudden, or life threatening deterioration of this patient's condition which required my full and direct attention, intervention and personal management. Discharge Plan Discharge Patient Disposition: Admitted As Inpatient Admit Provider: Marko Grajeda Clinical Impression: ST elevation TN (STEMI) Condition: Stable Coding Level of Care Code ED Assembler Piano for Hu Manning
--- NOTE | 2021-12-18 22:24 | XACV_ITS ---
Exam Room: 2 Ht: 147 cm Wt: 71 kg BSA: 1.74 m2 Gender: Female : 1950 Exam Priority: Routine Procedure(s): Procedure Description: Diagnostic procedure Procedure Description: PCI procedure Procedure Description: PTCA Procedure Description: Miscellaneous Procedure Description: ACT Procedure Description: Coronary Angiography Leo TREJO; Diagnostic Cath Status: Emergency Diagnostic Findings * Left Anterior Descending has diffuse, moderate disease. * INDICATION: 71 year old female with past medical history of diabetes, hypothyroidism and hypertension presented to the hospital with 1 to 2 hours of severe substernal chest pain radiating to the back. She denies prior cardiac history. EKG showed EKG showed ST elevation in lateral leads. She also has sinus bradycardia with heart rate in 50s. Cardiac Yard Goods Salesperson was emergently activated and patient was brought to the Yard Goods Salesperson. * 1st Diagonal: total occlusion, ALEXIS: 0 flow. This is the culprit vessel for STEMI. * Left Main has no disease. * Circumflex has no disease. * Proximal Right Coronary Artery: minimal 30% stenosis, ALEXIS: 3 flow. * Coronary angiography shows right dominance. PCI Status: Emergency PCI Indication: Immediate PCI for STEMI Interventional Findings * PROCEDURE DETAIL: We engaged left main artery with XB 3.0 guide catheter. IV heparin was administered to maintain ACT above 250 S. 0.014 run-through guidewire was used to cross totally occluded diagonal artery stenosis. We predilated the stenosis with 2.25 x 12 mm noncompliant balloon. This reestablished the flow. There was another stenosis in the mid to distal segment of the vessel which also underwent balloon angioplasty. Given the diameter of the vessel was small and there was excellent flow established with balloon angioplasty, we decided not to stent it. At this time 3 removed the guidewire and guide catheter. Patient left the Yard Goods Salesperson in a stable condition and was chest pain-free.. * 1st Diagonal: 100% stenosis treated with a AB TREK 2.25X12 RX BALLOON. 0% residual stenosis, ALEXIS: 3 flow. Conclusions 1. Total thrombotic occlusion of 2. diagonal artery. This was culprit vessel for ST elevation UT. 3. Patient underwent successful revascularization with balloon angioplasty. 4. Stent was not placed secondary to small diameter of the vessel 5. and diffuse disease.. 6. 1st Diagonal was treated with a Balloon. Recommendations * Transfer to ICU. * High intensity statin therapy. * Aspirin and Plavix for at least 1 year. * Aggrastat drip for 12 hours. * Order echocardiogram. * Cardiac rehab referral. * Outpatient cardiology follow-up in 4 weeks. Interventional RX Recommendation: PCI w/o planned CABG Diagnostic RX Recommendation: PCI w/o planned CABG Anticoagulation: Heparin Pressures Phase:Rest AO : 157 / 84 ( 116 ) @ 6:48:07 PM 80 / 39 ( 56 ) @ 6:48:07 PM 81 / 51 ( 63 ) @ 6:48:08 PM Clinical Evaluation EBL: 5mL-10mL Procedural Details Admit Source: Emergency department. Pre-Procedure Time Out. Identified patient by full name and date of as verbalized by the patient/guarantor. Does the consent match the physician's order: N/A Emergent. Accurate & Complete Informed Consent: N/A Emergent; Informed Consent not obtained due to time critical life threat. Inpatient/Outpatient History & Physical on Chart: N/A Emergent; Informed Consent not obtained due to time critical life threat. If H&P is completed, is and addenduem needed: N/A; If yes, is the addendum complete: N/A. Visualize and Verify Site with Patient/Guarantor: N/A. Relevant Radiology Images available: N/A. Pre-op teaching completed and patient verbalized understanding. The risks, benefits, and alternatives of sedation and/or procedure were discussed by physician. The patient agrees to continue. Procedure started. [facility] Clinical Fraility Score: 3: Managing Well. Yard Goods Salesperson Indications: ACS <= 24 hours. Chest Pain Symptom Assessment: Typical Angina Symptoms. Correct patient, site and procedure confirmed by cath team. Current diagnosis: STEMI. PERRLA. Strong, equal hand wrap yarn sorter bilaterally. Lungs clear x 5 lobes. IV Site on Arrival: 18 gauge in the right anticubital. IV Fluids: 0.9% NaCl at KVO. 0 mL infused prior to orthodontic lab technician. Pre Procedural Pulses: right radial was 1+. Oxygen started at 2liters/min via nasal canula. right groin was prepped with chloroprep then draped in the usual sterile fashion. right radial was prepped with chloroprep then draped in the usual sterile fashion. Physician notified. Baseline sample Acquired. HR: 62 BPM. Physician arrived. Physician scrubbed in. Immediate Pre-Procedure Time Out. Correct Patient: Yes; Correct Procedure: Yes; Correct Site: Yes; Correct Patient Position: Yes; Correct Supplies: Yes; Dried Flammable Prep: Yes; Blood Products Available: N/A;. Lidocaine 1% infiltrated to the right radial. Arterial access obtained. A 5 st helenian TIG catheter in over wire. Multiple views taken of left coronary artery. Catheter redirected to the RCA. Multiple views taken of right coronary artery. Catheter removed over the Glidewire. 6 st helenian XB 3 guide catheter was inserted over the wire. Runthrough guidewire was advanced through the guide catheter to lesion in the diaganol. Balloon inserted to lesion in the diaganol. Balloon out. Balloon inserted to lesion in the diaganol. Inflation number : 1 A AB TREK 2.25X12 RX BALLOON was prepped and advanced across the 1st Diag , then inflated to 4 BASIL for 0:05 seconds. Inflation number: 2 The AB TREK 2.25X12 RX BALLOON was reinflated across the 1st Diag, to 4 BASIL for 0:08 seconds. Inflation number: 3 The AB TREK 2.25X12 RX BALLOON was reinflated across the 1st Diag, to 5 BASIL for 0:09 seconds. Inflation number: 4 The AB TREK 2.25X12 RX BALLOON was reinflated across the 1st Diag, to 8 BASIL for 0:21 seconds. Inflation number: 5 The AB TREK 2.25X12 RX BALLOON was reinflated across the 1st Diag, to 8 BASIL for 0:24 seconds. PCI Indication : Immediate PCI for STEMI. Balloon out. Wire out. Results checked. ACT drawn. Results 189 seconds. Therapeutic limits - pre-heparin administration 90-150 seconds and monitoring heparin during a vascular procedure >250 seconds. Guide catheter out. Post Procedure: Pulses reassessed and unchanged. A TR Band was successful obtaining hemostatsis at the Right Radial artery insertion site. PERRLA. Strong, equal hand wrap yarn sorter bilaterally. No VTE prophylaxis required. Medication's Wasted: Nitro = 49.8 mg. Medication's Wasted: Lidocaine 1% = 3 mL. Medication's Wasted: Heparin = 1000 u. Total IV fluids: 48 mL. PCI Indication: STEMI. Post-op diagnosis: STEMI, Total occlusion of Prox 1st Diag. Complications: none. Estimated blood loss: 5mL-10mL. Responsiveness - Normal response to verbal stimuli; alert and oriented, PERRLA. Airway - Unaffected, no intervention required; spontaneous ventilation. Circulation: W/N/L, pulses unchanged. Nausea/Vomiting: No. Procedure completed. Patient transferred by wheelchair to ICU. Vital chart was stopped. Access Site Site: Right Radial artery Sheath Size: 6 Fr Hemostasis Method: TR Band Hemostasis Success: Successful Procedure Medications Start: 11:02 PM Stop: 11:02 PM Medication: Versed Amount: 1 mg Route: I.V. Start: 11:02 PM Stop: 11:02 PM Medication: Fentanyl Amount: 50 mcg Route: I.V. Start: 11:02 PM Stop: 11:02 PM Medication: 0.9% Saline Amount: 75 ml/hr Route: I.V. drip Start: 11:03 PM Stop: 11:03 PM Medication: Nitrogylcerin Amount: 200 mcg Route: I.A. Start: 11:09 PM Stop: 11:09 PM Medication: Heparin Amount: 3000 units Route: I.V. Start: 11:28 PM Stop: 11:28 PM Medication: Versed Amount: 1 mg Route: I.V. Start: 11:28 PM Stop: 11:28 PM Medication: Fentanyl Amount: 50 mcg Route: I.V. Start: 11:36 PM Stop: 11:36 PM Medication: Aggrastat 12.5 mg/250 mL Amount: 36 ml Start: 11:36 PM Stop: 11:36 PM Medication: Aggrastat 12.5 mg/250 mL Amount: 13 ml/hr Route: I.V. drip Start: 11:37 PM Stop: 11:37 PM Medication: Heparin Amount: 2000 units Route: I.V. I, the attending physician, have reviewed and verified all procedure medications. Yes, all medications given per verbal order Report Signatures Finalized by Marko Grajeda MD on 12/27/2021 12:11 PM
[2021-12-18] MEDS: morphine 4 mg/mL SDV 1 mL IVP (22:25)
[2021-12-18] MEDS: ondansetron 2 mg/ML SDV 2 mL 4 MG IVP (22:25)
[2021-12-18 22:32] LABS: Basophils # 0.1 10^3/uL (0.0-0.1); Basophils % 0.5 %; Eosinophils % 0.2 %; Hematocrit 40.9 % (37.0-47.0); Hemoglobin 13.8 g/dL (11.5-15.3); Lymphocytes # 5.7 10^3/uL (0.8-4.8); Lymphocytes % 29.4 %; Mean Corpuscular HGB Conc 33.7 g/dL (30.0-36.0); Mean Corpuscular Volume 85.9 fl (81-99); Mean Platelet Volume 9.8 fL (7.4-10.4); Monocytes # 1.5 10^3/uL (0.2-0.9); Monocytes % 7.8 %; Neutrophils # 11.99 10^3/uL (1.8-7.7); Neutrophils % 61.3 %; Nucleated Red Blood Cells % 0 %; Platelet Count 461 10^3/cmm (130-400); Red Blood Count 4.76 10^6/uL (4.1-5.3); Red Cell Distribution Width 13.1 % (12.1-15.1); White Blood Count 19.6 10^3/uL (4.0-10.0)
[2021-12-18 22:36] LABS: INR 0.85 (0.8-1.2)
[2021-12-18 22:37] VITALS: BP 142/77; PULSE 52; RESP 22; O2SAT 99
[2021-12-18 22:37] LABS: Partial Thromboplastin Time 23.6 SECONDS (23.9-36.7)
[2021-12-18 22:40] VITALS: BP 171/82; PULSE 52; RESP 23; O2SAT 99
[2021-12-18 22:41] LABS: Troponin(5th) Baseline 27 ng/L (0-10)
[2021-12-18] MEDS: heparin 5,000 unit/mL INJ 1 mL 4000 UNIT IVP (22:47)
[2021-12-18] MEDS: aspirin 81 mg Chew Tablet 324 MG PO (22:49)
[2021-12-18 22:50] LABS: Alanine Aminotransferase 23 U/L (0-33); Albumin Level 4.6 g/dL (3.5-5.2); Alkaline Phosphatase 112 IU/L (35-105); Anion Gap 17.4 (5-19); Aspartate Amino Transferase 13 U/L (0-32); Blood Urea Nitrogen 15 mg/dL (8-23); Calcium 9.6 mg/dL (8.5-10.5); Carbon Dioxide 23 mmol/L (22-29); Chloride 99 mmol/L (98-107); Creatine Phosphokinase 64 U/L (26-192); Globulin 3.2 g/dL (1.3-4.6); Glucose 345 mg/dL (65-115); NT Pro B Type Natriuretic Pept 45 pg/mL (0-125); Osmolality Calculated 295 mOsm/kg (285-295); Potassium 4.4 mmol/L (3.5-5.1); Sodium 135 mmol/L (136-145); Total Bilirubin 0.2 mg/dL (0.15-1.2); Total Protein 7.8 g/dL (6.6-8.7)
--- NOTE | 2021-12-18 22:51 | P.HP_ITS ---
Providers/Chief Complaint Admitting Physician: Marko Grajeda MD Primary Care Provider: Mirian Pandey Chief Complaint: Chest Upper Back Pain History of Present Illness Yesy Flores is a 71 year old female with past medical history of diabetes, hypothyroidism and hypertension presented to the hospital with 1 to 2 hours of severe substernal chest pain radiating to the back. She denies prior cardiac history. EKG showed EKG showed ST elevation in lateral leads. She also has sinus bradycardia with heart rate in 50s. Cardiac Electrical Maintenance Man was emergently activated and patient was brought to the Electrical Maintenance Man. She was found to have total occlusion of medium sized first diagonal artery. We performed balloon angioplasty. Given diffuse nature of the disease and size of vessel, decision was made to not put a stent. She had ALEXIS-3 flow in the vessel post balloon angioplasty. Review of Systems Narrative: CONSTITUTIONAL: No fever or chills. EYES: No blurring of vision, auditory disturbances or sore throat. CARDIOVASCULAR: Chest pain RESPIRATORY: Shortness of breath GASTROINTESTINAL: No abdominal pain NEURO: No significant symptoms PSYCHIATRIC: No history of psychosis or major depression. MUSCULOSKELETAL: Shoulder pain Medications/Allergies Home Medications Medication Instructions Recorded Confirmed Last Taken Type ascorbic acid (vitamin C) 1,000 mg 1,000 mg PO BID 07/29/20 07/29/20 Unknown History tablet (Vitamin C) aspirin 81 mg chewable tablet 81 mg PO DAILY 07/29/20 07/29/20 Unknown History cholecalciferol (vitamin D3) 25 25 mcg PO BID 07/29/20 07/29/20 Unknown History mcg (1,000 unit) capsule (Vitamin D3) coenzyme Q10 50 mg capsule (Co See Rx Instructions .ROUTE .COMPLEX 07/29/20 07/29/20 Unknown History Q-10) cyanocobalamin (vitamin B-12) 25 500 mcg PO DAILY 07/29/20 07/29/20 Unknown History mcg tablet glipizide 5 mg tablet 5 mg PO BID 07/29/20 07/29/20 Unknown History krill 1,000 mg-omega-3 170 mg-dha See Rx Instructions .ROUTE .COMPLEX 07/29/20 07/29/20 Unknown History 50 mg-epa 80 ow-qnhqcp-dzgto capsule (krill oil) metformin 1,000 mg tablet 1,000 mg PO BID 07/29/20 07/29/20 Unknown History methocarbamol 500 mg tablet 500 mg PO BID PRN 07/29/20 07/29/20 Unknown History montelukast 10 mg tablet 10 mg PO DAILY 07/29/20 07/29/20 Unknown History niacin 500 mg capsule 500 mg PO DAILY 07/29/20 07/29/20 Unknown History vit C-vit S-wysjdg-glnuvvmc-omega 1 cap PO DAILY 07/29/20 07/29/20 Unknown History 3 100 mg-15 unit-2 mg-100 mg capsule zinc 50 mg capsule 50 mg PO BID 07/29/20 07/29/20 Unknown History meloxicam 15 mg tablet 15 mg PO DAILY #30 tab 12/14/21 12/14/21 Unknown Rx Allergies Allergy/AdvReac Type Severity Reaction Status Date / Time Qvzwvmk-XZR-DrW Reductase Allergy ADV-Weaknes Verified 12/14/21 08:33 Inhibitor s [Mbfctrl-Uor-Ked Reductase Inhibitor] Sulfa (Sulfonamide Allergy ALGY-Rash Verified 12/14/21 08:33 Antibiotics) PFSH Acute PFSH: Medical History Accelerated hypertension Cervical herniated disc Hyperlipidemia Hypertension Hypothyroidism Sciatica Type 2 diabetes mellitus Vertigo Family History Father CAD (coronary artery disease) Mother Stroke Social History Smoking and tobacco status: never smoked Alcohol intake: never Housing: House Vitals/I&O/Wt Last Vital Signs Pulse 52 L 12/18/21 22:40 Resp 23 H 12/18/21 22:40 BP 171/82 12/18/21 22:40 Pulse Ox 99 12/18/21 22:40 Weight last 48 hrs Weight 157 lb Physical Exam Narrative: GENERAL: Patient is alert, awake and oriented x3. [] NECK: No jugular vein distension. [] HEENT: No cyanosis. No icterus. No pallor. [] HEART: Regular S1 and S2. No murmur, rub or gallop. [] LUNGS: Clear to auscultate bilaterally. [] ABDOMEN: Soft, nontender and nondistended. Positive bowel sounds. No guarding, rebound or tenderness. [] CENTRAL NERVOUS SYSTEM: Grossly nonfocal. [] EXTREMITIES: Lower extremities with no edema bilaterally. Data : 12/18/21 22:10 12/18/21 22:10 A&P Assessment and plan (1) Hypertension: Status: Acute Qualifiers: Hypertension type: unspecified Qualified Code(s): I10 - Essential (primary) hypertension (2) Hyperlipidemia: Status: Acute (3) Type 2 diabetes mellitus: Status: Acute (4) ST elevation ID (STEMI): Status: Acute (5) Hypothyroidism: Status: Acute Plan Patient has presented with acute ST elevation ID and was emergently brought to the cardiac Electrical Maintenance Man. Status post successful revascularization of first diagonal artery with balloon angioplasty. Decision made not to put a stent given size of the vessel and diffuse nature of disease. If she has reocclusion of vessel, we can discuss stenting. Continue aspirin and Plavix for at least 1 year. Continue Aggrastat gtt for 12 hours Ordered echocardiogram. Patient is allergic to statin therapy. Check lipid panel. We will consult hospitalist team to help with management of medical issues Attestations Medical Necessity Statement*: Care expected to cross 2 midnights. Patient presented with acute ST elevation ID. She underwent successful revascularization of medium sized diagonal vessel with balloon angioplasty. Coding Level of Care Code Acute Marketing Ambassador for Hu Manning Diagnoses Hypertension I10 Hypertension type: unspecified Hyperlipidemia E78.5 Type [address] elevation ID (STEMI) I21.3 Hypothyroidism E03.9
[2021-12-18 23:21] LABS: Slide Review Slide Review Perform
[2021-12-18 23:55] VITALS: BP 130/87; PULSE 69; RESP 14; O2SAT 93
[2021-12-19] VITALS (60 sets, daily range): BP systolic 107–159; BP diastolic 59–97; PULSE 47–93; RESP 10–27; TEMP 36.7–36.9; O2SAT 93–100
--- NOTE | 2021-12-19 00:05 | USCV_ITS ---
Yesy Flores Age: 71 Gender: F : 1950 Exam Date: 12/19/2021 01:15 Ordering Phys: Marko Grajeda M.D ([email or web address]) Technologist: Orion Gottlieb Exam Location: [facility] [place] Indication: post stemi BP: 126 / 76 HR: 56 Rhythm: Sinus Technical Quality: Adequate MEASUREMENTS (Male / Female) Normal Values 2D ECHO LV Diastolic Diameter PLAX 3.4 cm 4.2 - 5.9 / 3.9 - 5.3 cm LV Systolic Diameter PLAX 2.4 cm IVS Diastolic Thickness 1.1 cm 0.6 - 1.0 / 0.6 - 0.9 cm IVS Systolic Thickness 1.3 cm LVPW Diastolic Thickness 1.5 cm 0.6 - 1.0 / 0.6 - 0.9 cm LVPW Systolic Thickness 2.2 cm LV Ejection Fraction 2D Teich 47.3 % LV Ejection Fraction MOD 2C 46.1 % LV Ejection Fraction 2C AL 45.1 % LA Diameter 3.0 cm Aorta at Sinotubular Diameter 2.2 cm IVC Diameter 2.0 cm M-MODE Aortic Annulus Diameter 2.7 cm LA Ao Ratio MM 1.2 MV E Point Septal Separation 0.7 cm DOPPLER AV Peak Velocity 87.3 cm/s LVOT Peak Velocity 60.0 cm/s MV Area PHT 4.2 cm squared Mitral E to A Ratio 0.8 MV E' Velocity 34.0 cm/s Mitral E to MV E' Ratio 6.3 Mitral E to LV E' Lateral Ratio 9.9 Mitral E to LV E' Septal Ratio 4.6 TR Peak Velocity 118.1 cm/s TR Peak Gradient 5.6 mmHg TR Mean Velocity 98.2 cm/s TR Mean Gradient 4.0 mmHg TR Velocity Time Integral 34.0 cm Right Atrial Pressure 3.0 mmHg Pulmonary Artery Systolic Pressu 8.6 mmHg PV Peak Velocity 67.0 cm/s FINDINGS Left Ventricle Normal left ventricular size. LV systolic function is borderline normal with EF of 50 %. No significant regional wall motion abnormalities. Grade 1 diastolic dysfunction Right Ventricle Grossly normal Right Atrium The right atrium is grossly normal Left Atrium The left atrium is normal in size. Mitral Valve Grossly normal without significant stenosis or prolapse. There is no mitral regurgitation. Aortic Valve Not well visualized. No significant stenosis. There is no aortic regurgitation. Tricuspid Valve Not well visualized. No significant stenosis. Trace tricuspid regurgitation. Insufficient TR jet to calculate RVSP. Pulmonic Valve Not well-visualized Pericardium Normal pericardium without effusion. Aorta Normal ascending aorta dimension. IVC CONCLUSIONS Technically limited quality echocardiogram because of poor ultrasonic windows LV systolic function is borderline normal with EF of 50%. Grade 1 diastolic dysfunction. Trace tricuspid regurgitation. Compared to prior echocardiogram from 07/29/2020, no significant changes are seen Marko Grajeda MD (Electronically Signed) Final Date: 19 December 2021 18:27 S
--- NOTE | 2021-12-19 00:16 | ECG_ITS ---
[facility] Test Date: 2021-12-19 Pat Name: Yesy Flores Department: Room: [facility] Gender: Female Knotting Machine Operator: : 1950 Requested By: Dante Patton Order Number: [id number] Rachell MD: Marko Grajeda M.D. Measurements Intervals [place] Rate: 63 P: 60 LA: 171 QRS: 68 QRSD: 74 T: 72 QT: 414 QTc: 425 Interpretive Statements SINUS RHYTHM LOW QRS VOLTAGE IN PRECORDIAL LEADS [QRS DEFLECTION < 1.0 mV IN CHEST LEADS] SEPTAL MYOCARDIAL INFARCTION , OF INDETERMINATE AGE [40+ ms Q WAVE IN V1/V2] Compared to ECG 12/18/2021 22:02:22 Myocardial infarct finding now present Sinus bradycardia no longer present Electronically Signed On 12-19-2021 17:37:06 CDT by Marko Grajeda M.D. [id number]
[2021-12-19] MEDS: sodium chloride 0.9% 1,000 ML 100 ML IV ×2 (00:30→20:04)
--- NOTE | 2021-12-19 00:51 | PC.NURSE ---
1040 - Received from cardiac medical laboratory specialist via wheelchair with nurses at bedside. V/S stable, no reports of chest pain or discomfort. TR band to right wrist with 14mL air in place. Aggristat infusing at 13mL/h per pump. 0001 - ST elevations noted on material spreader with significant elevation noted in lead 1. Notified Dr. Grajeda, reports this is to be expected with this patient due to small vessel size and diffuse disease.
[2021-12-19 01:48] LABS: Chol HDL Ratio 3.37 mg/dL (0.0-4.40); Cholesterol 182 mg/dL (0-200); HDL Cholesterol 54 mg/dL (60-100); LDL Cholesterol Calculated 117 mg/dL (50-129); LDL HDL Ratio 2.17 RATIO (0.00-3.22); Triglycerides 55 mg/dL (0-150)
[2021-12-19 01:54] LABS: Troponin 5 2HR Delta 1592 ABS# (0-10)
[2021-12-19 01:55] LABS: Troponin 5 2HR 1619 ng/L (0-10)
--- NOTE | 2021-12-19 03:41 | PC.NURSE ---
0100 - removed 1 mL air from right wrist TR band. 0115 - removed 1 mL air from right wrist TR band. 0130 - removed 1 mL air from right wrist TR band. 0145 - removed 1 mL air from right wrist TR band. 0200 - removed 1 mL air from right wrist TR band. 0215 - removed 1 mL air from right wrist TR band. 0230 - removed 1 mL air from right wrist TR band. 0245 - removed 1 mL air from right wrist TR band. 0300 - removed 1 mL air from right wrist TR band. 0315 - removed 1 mL air from right wrist TR band. 0320 - removed 2 mL air from right wrist TR band. 0330 - removed 2 mL air from right wrist TR band. No bleeding or hematoma noted. No reports of numbness or tingling, radial pulse strong.
[2021-12-19] MEDS: tirofiban 5 MG/100 ML PREMIX 12.82 MG IV (03:53)
--- NOTE | 2021-12-19 03:58 | PC.NURSE ---
TR band removed from right wrist, no bleeding noted bruising noted around insertion site with no hematoma felt. Elastic bandage placed over punctures site.
--- NOTE | 2021-12-19 04:16 | ECG_ITS ---
[facility] Test Date: 2021-12-19 Pat Name: Yesy Flores Department: Room: [facility] Gender: Female Manager Client: : 1950 Requested By: Dante Patton Order Number: [id number] Rachell MD: Marko Grajeda M.D. Measurements Intervals [place] Rate: 74 P: 60 RI: 165 QRS: 79 QRSD: 77 T: 93 QT: 378 QTc: 422 Interpretive Statements SINUS RHYTHM WITH SINUS ARRHYTHMIA LOW QRS VOLTAGE IN PRECORDIAL LEADS [QRS DEFLECTION < 1.0 mV IN CHEST LEADS] SEPTAL MYOCARDIAL INFARCTION , PROBABLY RECENT [40+ ms Q WAVE IN V1/V2] ACUTE PR Compared to ECG 12/19/2021 00:20:00 No significant changes Electronically Signed On 12-19-2021 17:36:34 CDT by Marko Grajeda M.D. [id number]
[2021-12-19 06:10] LABS: Troponin 5 6HR 2547 ng/L (0-10); Troponin 5 6HR Delta 2520 ng/L (0-12)
[2021-12-19 07:38] LABS: Glucose Point of Care 278 mg/dL (70-110)
[2021-12-19] MEDS: aspirin 81 mg EC Tablet PO (08:11)
[2021-12-19] MEDS: clopidogrel 75 mg Tablet PO (08:11)
[2021-12-19] MEDS: insulin lispro 100 unit/1 mL SUBCUT ×4 (08:12→20:35)
[2021-12-19] MEDS: lisinopril 10 mg Tablet PO (08:12)
--- NOTE | 2021-12-19 09:49 | PM.PN ---
Subjective Subjective: Patient is doing well. Has mild chest soreness, no significant pain. Vitals/I&O/Wt Last Vital Signs Temp 98.4 F 12/19/21 04:00 Pulse 90 12/19/21 09:00 Resp 15 12/19/21 09:00 BP 157/91 12/19/21 09:00 Pulse Ox 100 12/19/21 09:00 12/18/21 12/19/21 12/19/21 22:59 06:59 14:59 Intake Total 200 / 200 Balance 200 / 200 Weight last 48 hrs Weight 157 lb Physical Exam Narrative: GENERAL: Patient is alert, awake and oriented x3. [] NECK: No jugular vein distension. [] HEENT: No cyanosis. No icterus. No pallor. [] HEART: Regular S1 and S2. No murmur, rub or gallop. [] LUNGS: Clear to auscultate bilaterally. [] ABDOMEN: Soft, nontender and nondistended. Positive bowel sounds. No guarding, rebound or tenderness. [] CENTRAL NERVOUS SYSTEM: Grossly nonfocal. [] EXTREMITIES: Lower extremities with no edema bilaterally. Data : 12/18/21 22:10 12/18/21 22:10 A&P Assessment and plan (1) Hypertension: Status: Acute Qualifiers: Hypertension type: unspecified Qualified Code(s): I10 - Essential (primary) hypertension (2) Hyperlipidemia: Status: Acute (3) Type 2 diabetes mellitus: Status: Acute (4) ST elevation NH (STEMI): Status: Acute (5) Hypothyroidism: Status: Acute Plan Patient presented with acute ST elevation NH and was emergently brought to the cardiac Investigations Consultant. Status post successful revascularization of first diagonal artery with balloon angioplasty. Decision made not to put a stent given size of the vessel and diffuse nature of disease. Continue aspirin and Plavix for at least 1 year. ECHO is of limited quality but grossly LV systolic function is normal Patient did not tolerate atorvastatin in the past. Will try simvastatin Sliding scale insulin If patient stays stable, likely discharge tomorrow Attestations Medical Necessity Statement*: Care expected to cross 2 midnights. Patient presented with totally occluded diagonal artery and underwent successful revascularization with balloon angioplasty. Coding Level of Care Code Acute Steam Fitter Supervisor Maintenance for [facility] Diagnoses Hypertension I10 Hypertension type: unspecified Hyperlipidemia E78.5 Type [address] elevation NH (STEMI) I21.3 Hypothyroidism E03.9
--- NOTE | 2021-12-19 10:15 | PC.CHAP ---
Pastoral Care Encounter/Spiritual Assessment Type of Contact [] Declined molding technician visit [] Patient/Family/Request visit [] Outpatient visit [] Follow-up visit [] Physician referral [] Code/Alert [x] Routine visit [] Staff referral [] Actively dying [x] Patient sleeping [] Family support [] [] Out of room [] Palliative care [] [] Receiving care in room [] Pre-surgical visit [] Trauma [] Long length of stay [x] ICU visit [] Other: Relational/Emotional Strength [] Patient feels connected with others/family/visitors/staff [] Distress [] Loneliness/isolation [] Abandonment Spirituality of Patient [] Person of Joanne [] Attends Moravian of their Joanne [] Believes in Prayer [] Reads Bible or Temple materials [] There are Spiritual issues to be addressed Chief Recordist Interventions [x Prayer [] Active listening [] Non-anxious presence [] Spiritual/emotional support [] Crisis/trauma care [] Spiritual counseling [] Bereavement support [] Provided bereavement packet [] Provided Bible/devotional materials [] Provided toy/stuffed animal, coloring book to patient or family member [] Provided Communion [] Anointing/[place] [] Salvation [x] Completed spiritual assessment [] Other: Impact on Illness or Injury [] Angry [] Fearful [] Anxious [] Often cries [] Exhaustion [] Unable to work [] Unable to attend catholic [] Unable to walk/stand [] Unable to read [] Unable to drive [] Unable to eat/drink [] Unable to sleep [] Unable to be with family [] Patient intubated [] Other: Summary Time spent with patient
[2021-12-19 12:13] LABS: Glucose Point of Care 184 mg/dL (70-110)
[2021-12-19 17:34] LABS: Glucose Point of Care 183 mg/dL (70-110)
[2021-12-19] MEDS: metoprolol tartrate 25 mg Tablet PO (20:05)
[2021-12-19 20:31] LABS: Glucose Point of Care 227 mg/dL (70-110)
[2021-12-20] VITALS (18 sets, daily range): BP systolic 105–139; BP diastolic 62–83; PULSE 60–86; RESP 11–17; O2SAT 92–99
[2021-12-20 06:17] LABS: Basophils # 0.1 10^3/uL (0.0-0.1); Basophils % 0.4 %; Eosinophils # 0.1 10^3/uL (0.0-0.8); Eosinophils % 0.6 %; Hematocrit 34.8 % (37.0-47.0); Hemoglobin 11.7 g/dL (11.5-15.3); Lymphocytes # 3.7 10^3/uL (0.8-4.8); Lymphocytes % 21.9 %; Mean Corpuscular HGB Conc 33.6 g/dL (30.0-36.0); Mean Corpuscular Hemoglobin 29.5 pg (28.0-34.0); Mean Corpuscular Volume 87.7 fl (81-99); Mean Platelet Volume 9.5 fL (7.4-10.4); Monocytes # 1.5 10^3/uL (0.2-0.9); Monocytes % 8.8 %; Neutrophils # 11.33 10^3/uL (1.8-7.7); Neutrophils % 67.6 %; Nucleated Red Blood Cells % 0 %; Platelet Count 338 10^3/cmm (130-400); Red Blood Count 3.97 10^6/uL (4.1-5.3); Red Cell Distribution Width 13.5 % (12.1-15.1); White Blood Count 16.8 10^3/uL (4.0-10.0)
[2021-12-20] MEDS: sodium chloride 0.9% 1,000 ML 100 ML IV (06:23)
[2021-12-20 06:35] LABS: Anion Gap 13.2 (5-19); Blood Urea Nitrogen 12 mg/dL (8-23); Calcium 8.6 mg/dL (8.5-10.5); Carbon Dioxide 24 mmol/L (22-29); Chloride 105 mmol/L (98-107); Glucose 187 mg/dL (65-115); Osmolality Calculated 291 mOsm/kg (285-295); Potassium 4.2 mmol/L (3.5-5.1); Sodium 138 mmol/L (136-145)
--- NOTE | 2021-12-20 06:58 | P.DS_ITS ---
Discharge Providers Date of Admission: 12/18/21 Date of Discharge: December 20, 2021 Attending Provider at Admission: Marko Grajeda M.D Attending Provider at Discharge: Marko Grajeda M.D Primary Care Provider: Mirian Pandey Diagnoses at Discharge Discharge Diagnosis (1) Hypertension: Status: Acute Qualifiers: Hypertension type: unspecified Qualified Code(s): I10 - Essential (primary) hypertension (2) Hyperlipidemia: Status: Acute (3) Type 2 diabetes mellitus: Status: Acute (4) ST elevation CA (STEMI): (5) Hypothyroidism: Status: Acute Reason for Visit Reason for Visit: Chest Upper Back Pain Brief History: 71 year old female with past medical history of diabetes, hypothyroidism and hypertension presented to the hospital with 1 to 2 hours of severe substernal chest pain radiating to the back.? She denies prior cardiac history.? EKG showed EKG showed ST elevation in lateral leads.? She also has sinus bradycardia with heart rate in 50s.? Cardiac Director Of Vocational Guidance was emergently activated and patient was brought to the Director Of Vocational Guidance. Hospital Course Hospital Course 71 year old female with past medical history of diabetes, hypothyroidism and hypertension presented to the hospital with 1 to 2 hours of severe substernal chest pain radiating to the back.? She denies prior cardiac history.? EKG showed EKG showed ST elevation in lateral leads.? She also has sinus bradycardia with heart rate in 50s.? Cardiac Director Of Vocational Guidance was emergently activated and patient was brought to the Director Of Vocational Guidance.? 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 We performed balloon angioplasty.? Given diffuse nature of the disease and size of vessel, decision was made to not put a stent.? She had ALEXIS-3 flow in the vessel post balloon angioplasty. Echocardiogram demonstrated borderline normal LV systolic function. She states chest pain-free during hospitalization and was discharged home on aspirin and Plavix. She mentioned that prior significant weakness with Lipitor. We was started her on simvastatin. Physical Exam Narrative: GENERAL: Patient is alert, awake and oriented x3. [] NECK: No jugular vein distension. [] HEENT: No cyanosis. No icterus. No pallor. [] HEART: Regular S1 and S2. No murmur, rub or gallop. [] LUNGS: Clear to auscultate bilaterally. [] ABDOMEN: Soft, nontender and nondistended. Positive bowel sounds. No guarding, rebound or tenderness. [] CENTRAL NERVOUS SYSTEM: Grossly nonfocal. [] EXTREMITIES: Lower extremities with no edema bilaterally. Discharge Data Studies Completed and Pending Completed Studies During Hospitalization Category Date Time Status XR chest 1V portable [id number] Stat Exams 12/18/21 22:16 Completed CV. echo complete* [id number] Routine Ultrasound 12/19/21 00:05 Completed Pending at discharge Category Date Time Status MACHINED PARTS QUALITY INSPECTOR request for service Stat Exams 12/18/21 22:24 Taken Basic Metabolic Panel AM LABS Lab 12/21/21 04:00 Ordered Basic Metabolic Panel AM LABS Lab 12/22/21 04:00 Ordered Complete Blood Count w/Auto AM LABS Lab 12/21/21 04:00 Ordered Complete Blood Count w/Auto AM LABS Lab 12/22/21 04:00 Ordered Radiology Impressions Chest X-Ray 12/18/21 22:16 IMPRESSION: Possible pneumonia infiltrates at the left lung base. Laboratory Results WBC 16.8 10^3/uL (4.0-10.0) H 12/20/21 06:08 RBC 3.97 10^6/uL (4.1-5.3) L 12/20/21 06:08 Hgb 11.7 g/dL (11.5-15.3) 12/20/21 06:08 Hct 34.8 % (37.0-47.0) L 12/20/21 06:08 MCV 87.7 fl (81-99) 12/20/21 06:08 MCH 29.5 pg (28.0-34.0) 12/20/21 06:08 MCHC 33.6 g/dL (30.0-36.0) 12/20/21 06:08 RDW 13.5 % (12.1-15.1) 12/20/21 06:08 Plt Count 338 10^3/cmm (130-400) 12/20/21 06:08 MPV 9.5 fL (7.4-10.4) 12/20/21 06:08 Neut % (Auto) 67.6 % 12/20/21 06:08 Lymph % (Auto) 21.9 % 12/20/21 06:08 [place] % (Auto) 8.8 % 12/20/21 06:08 Eos % (Auto) 0.6 % 12/20/21 06:08 Baso % (Auto) 0.4 % 12/20/21 06:08 Neut # (Auto) 11.33 10^3/uL (1.8-7.7) H 12/20/21 06:08 Lymph # (Auto) 3.7 10^3/uL (0.8-4.8) 12/20/21 06:08 [place] # (Auto) 1.5 10^3/uL (0.2-0.9) H 12/20/21 06:08 Eos # (Auto) 0.1 10^3/uL (0.0-0.8) 12/20/21 06:08 Baso # (Auto) 0.1 10^3/uL (0.0-0.1) 12/20/21 06:08 Nucleated RBC % (auto) 0 % 12/20/21 06:08 Nucleated RBCs # 0.0 /100WBC 12/20/21 06:08 PT 11.90 SECONDS (12.1-14.9) L 12/18/21 22:10 INR 0.85 (0.8-1.2) 12/18/21 22:10 APTT 23.6 SECONDS (23.9-36.7) L 12/18/21 22:10 Sodium 138 mmol/L (136-145) 12/20/21 06:08 Potassium 4.2 mmol/L (3.5-5.1) 12/20/21 06:08 Chloride 105 mmol/L (98-107) 12/20/21 06:08 Carbon Dioxide 24 mmol/L (22-29) 12/20/21 06:08 Anion Gap 13.2 (5-19) 12/20/21 06:08 BUN 12 mg/dL (8-23) 12/20/21 06:08 Creatinine 0.6 mg/dL (0.5-0.9) 12/20/21 06:08 GFR Calculation Not Reportable 12/20/21 06:08 Glucose 187 mg/dL (65-115) H 12/20/21 06:08 POC Glucose 227 mg/dL (70-110) H 12/19/21 20:28 Calculated Osmolality 291 mOsm/kg (285-295) 12/20/21 06:08 Calcium 8.6 mg/dL (8.5-10.5) 12/20/21 06:08 Total Bilirubin 0.2 mg/dL (0.15-1.2) 12/18/21 22:10 AST 13 U/L (0-32) 12/18/21 22:10 ALT 23 U/L (0-33) 12/18/21 22:10 Alkaline Phosphatase 112 IU/L (35-105) H 12/18/21 22:10 Creatine Kinase 64 U/L (26-192) 12/18/21 22:10 Troponin T Baseline 27 ng/L (0-10) H 12/18/21 22:10 Troponin T 120 Minute 1619 ng/L (0-10) H 12/19/21 01:07 Delta Troponin T 1592 ABS# (0-10) H* 12/19/21 01:07 Troponin T Hi Sens 6Hr 2547 ng/L (0-10) H 12/19/21 04:50 Troponin T Hi Sens 6Hr Delta 2520 ng/L (0-12) H* 12/19/21 04:50 NT-Pro-B Natriuret Pep 45 pg/mL (0-125) 12/18/21 22:10 Total Protein 7.8 g/dL (6.6-8.7) 12/18/21 22:10 Albumin 4.6 g/dL (3.5-5.2) 12/18/21 22:10 Globulin 3.2 g/dL (1.3-4.6) 12/18/21 22:10 Triglycerides 55 mg/dL (0-150) 12/19/21 01:07 Cholesterol 182 mg/dL (0-200) 12/19/21 01:07 LDL Cholesterol, Calc 117 mg/dL (50-129) 12/19/21 01:07 HDL Cholesterol 54 mg/dL (60-100) L 12/19/21 01:07 LDL/HDL Ratio 2.17 RATIO (0.00-3.22) 12/19/21 01:07 Cholesterol/HDL Ratio 3.37 mg/dL (0.0-4.40) 12/19/21 01:07 Vitals Last Vital Signs Temp 98.4 F 12/19/21 04:00 Pulse 65 12/20/21 05:57 Resp 11 L 12/20/21 05:00 BP 139/68 12/20/21 05:00 Pulse Ox 92 12/20/21 05:00 Discharge Plan Discharge Patient Disposition: Home Condition: Stable Prescriptions: New clopidogrel 75 mg Tablet 75 mg PO DAILY Qty: 90 3RF metoprolol tartrate 25 mg Tablet 25 mg PO BID@0900,2100 Qty: 120 3RF simvastatin 40 mg tablet 40 mg PO DAILY Qty: 30 1RF Continued methocarbamol 500 mg tablet 500 mg PO BID PRN (Reason: Muscle Pain) 0RF montelukast 10 mg tablet 10 mg PO DAILY 0RF glipizide 5 mg tablet 5 mg PO BID 0RF levothyroxine 75 mcg tablet 75 mcg PO DAILY 0RF Claritin-D 24 Hour 10-240 mg Tablet Extended Release 24 Hr 1 tab PO DAILY PRN (Reason: Allergy Symptoms) 0RF chromium amino acid chelate 400 mcg Tablet 400 mcg PO DAILY PRN (Reason: Unobtainable) 0RF Held metformin 1,000 mg tablet 1,000 mg PO BID 0RF Hold Instructions: Resume on 12/21/21. No Action lisinopril 10 mg tablet 10 mg PO DAILY 0RF ascorbic acid (vitamin C) [Vitamin C] 1,000 mg tablet 1,000 mg PO BID PRN0RF aspirin 81 mg tablet,chewable 81 mg PO DAILY 0RF coenzyme Q10 [Co Q-10] 50 mg capsule See Rx Instructions .ROUTE .COMPLEX PRN0RF Rx Instructions: 50 mg orally alternating days with krill capsule PRN; [id number] [krill oil] [id number] mg capsule See Rx Instructions .ROUTE .COMPLEX PRN0RF Rx Instructions: 1 cap orally alternating with co-q-10 PRN; NAC 600 mg capsule 600 mg PO QPM PRN0RF biotin 5 mg tablet 5 mg PO DAILY PRN0RF Vitamin B-12 50 mcg tablet 50 mcg PO DAILY PRN0RF magnesium 30 mg tablet 30 mg PO DAILY PRN0RF niacin 500 mg tablet 500 mg PO DAILY PRN0RF zinc 50 mg tablet 50 mg PO DAILY PRN0RF Discharge Orders: Discharge Order (Routine); Ordered 12/20/21 Ordered By: Marko Grajeda Referrals: Mirian Pandey [Primary Care Provider] - 1-3 days (Your follow up appointment with Dr. Pandey's Office is on December 22 at 10:00 am. Please call [phone] if you have any questions or concerns. Thank you.) Marko Grajeda M.D [Physician] - 1 month (Your follow up appointment is with Dr. Martínez on January 30 at 10:00 am. Please call [phone] if you have any questions or concerns. Thank you.) Yue Pa FNP [Nurse Practitioner] - 7-10 days (Your follow up appointment with Yue Pa is on December 29 at 2:15 pm. Please call [phone] if you have any questions or concerns. Thank you.) Discharge Diet: Cardiac Discharge Activity: Increase activity as tolerated Patient Instructions: Metoprolol (By mouth) (Lopressor, Toprol XL), Lisinopril (By mouth) (Prinivil, Zestril), Simvastatin (By mouth) (Zocor), Clopidogrel (By mouth) (Plavix), Coronary Angioplasty (DC), Opioid Safety Activity Restrictions/Additional Instructions: Please do not lift more than 5 pounds of weight for the next 5 days Discharge Attestations Time Spent in Discharge Care*: greater than 30 min Quality Metrics Clinical Quality Measures [ Acute Myocardial Infaction { Clinical Trial Participant: No; Contraindication to aspirin: None; Aspirin prescribed; Contraindication to statin: None; Statin prescribed; Contraindication to PCI: None; PCI performed;}] Coding Level of Care Code Acute Chg FW DC note Diagnoses Hypertension I10 Hypertension type: unspecified Hyperlipidemia E78.5 Type [address] elevation CA (STEMI) I21.3 Hypothyroidism E03.9
--- NOTE | 2021-12-20 07:22 | PC.NURSE ---
Dr. Barnes at bedside, gave v.o. for d/c, clarified statin on med list with statin allergy, HCP approved to continue medication and educated patient on symptoms to monitor for adverse effects
--- NOTE | 2021-12-20 08:47 | PC.NURSE ---
all D/C instructions educated to patient, D/C form signed, no questions or concerns expressed
--- NOTE | 2021-12-20 09:15 | PC.NURSE ---
Patient FILIBERTO at this time transported by lili
== END 2021-12-20 09:17 | disposition home or self-care (01) | DRG 251 ==
LOC: ER 22:23 → CCL 22:24 → ICU 12-19 00:15
PROVIDERS: Admitting Provider Internal Medicine; Emergency Provider Emergency Medicine; PCP Nurse Practitioner Family; Visit Provider Internal Medicine
PROC: 02703ZZ Dilation of Coronary Artery, One Artery, Percutaneous Approach (ICD-10-PCS; principal; 2021-12-18 22:30)
PROC: 02703ZZ Dilation of Coronary Artery, One Artery, Percutaneous Approach (ICD-10-PCS; 2021-12-18 22:30)
DX: I21.02 ST elevation (STEMI) myocardial infarction involving left anterior descending coronary artery (principal); I10 Essential (primary) hypertension; E78.5 Hyperlipidemia, unspecified; E03.9 Hypothyroidism, unspecified; E11.9 Type 2 diabetes mellitus without complications; Z79.84 Long term (current) use of oral hypoglycemic drugs
CPT/HCPCS: 36415; 36416; 71045; 80048; 80053; 80061; 82550; 82962; 83880; 84484; 85025; 85347; 85610; 85730; 92920; 93005; 93306; 93454; 96360; 96372; 96374; 96375; 99152; 99153; 99291; C1725; C1769; C1887; C1894; J0461; J1644; J1815; J2250; J2270; J2405; J3010; J3490; J7030; Q9967

== ENCOUNTER → 2021-12-29 14:09 | Outpatient (BNVA) | payer MEDICARE, SELFPAY | PROVIDERS: PCP Family Medicine; Visit Provider Nurse Practitioner Family | DX: I25.10 Atherosclerotic heart disease of native coronary artery without angina pectoris (principal); I10 Essential (primary) hypertension | CPT/HCPCS: 36415; 80048; 99214 ==

== ENCOUNTER 2022-01-09 17:22 | Emergency (ER) | payer MEDICARE, SELFPAY ==
[2022-01-09] VITALS (7 sets, daily range): BP systolic 139–156; BP diastolic 79–93; PULSE 58–81; RESP 14–17; TEMP 36.7; O2SAT 96–98
--- NOTE | 2022-01-09 18:11 | ECG_ITS ---
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 Measurements Intervals [place] Rate: 69 P: 62 RI: 178 QRS: 86 QRSD: 73 T: 123 QT: 396 QTc: 426 Interpretive Statements SINUS RHYTHM SEPTAL MYOCARDIAL INFARCTION , PROBABLY RECENT [40+ ms Q WAVE IN V1/V2] ACUTE NC Compared to ECG 12/19/2021 04:29:11 Sinus arrhythmia no longer present Myocardial infarct finding still present Electronically Signed On 01-09-2022 18:21:24 CDT by Marko Grajeda M.D. [id number]
--- NOTE | 2022-01-09 18:11 | XRR_ITS ---
PROCEDURE INFORMATION: Exam: XR Chest Exam date and time: 01/09/2022 6:28 PM Age: 71 years old Clinical indication: Angina; Additional info: Chest pain TECHNIQUE: Imaging protocol: Radiologic exam of the chest. Views: 1 view. COMPARISON: CR (CHEST, ) 12/18/2021 10:33 PM FINDINGS: Lungs: The lung bases are suboptimally assessed due to technique however the upper lungs are clear of focal consolidation. Pleural spaces: Unremarkable. No pleural effusion. No pneumothorax. Heart/Mediastinum: Cardiac silhouette appears normal in size. No obvious vascular congestion. Bones/joints: No acute osseous findings. Other findings: Single view was submitted. XR/XR chest 1V portable [id number] IMPRESSION: No obvious acute consolidation. Suboptimal lung base assessment. Followup including lateral view may be obtained if clinically indicated.
[2022-01-09 18:23] LABS: Basophils # 0.2 10^3/uL (0.0-0.1); Basophils % 1.5 %; Eosinophils # 0.3 10^3/uL (0.0-0.8); Eosinophils % 2.9 %; Hematocrit 35.1 % (37.0-47.0); Hemoglobin 11.8 g/dL (11.5-15.3); Lymphocytes # 2.8 10^3/uL (0.8-4.8); Lymphocytes % 28.8 %; Mean Corpuscular HGB Conc 33.6 g/dL (30.0-36.0); Mean Corpuscular Hemoglobin 29.4 pg (28.0-34.0); Mean Corpuscular Volume 87.3 fl (81-99); Mean Platelet Volume 8.8 fL (7.4-10.4); Monocytes # 0.9 10^3/uL (0.2-0.9); Monocytes % 9.1 %; Neutrophils # 5.54 10^3/uL (1.8-7.7); Neutrophils % 57.2 %; Nucleated Red Blood Cells % 0 %; Platelet Count 435 10^3/cmm (130-400); Red Blood Count 4.02 10^6/uL (4.1-5.3); Red Cell Distribution Width 12.6 % (12.1-15.1); White Blood Count 9.7 10^3/uL (4.0-10.0)
[2022-01-09] MEDS: aspirin 325 mg Tablet PO (18:27)
--- NOTE | 2022-01-09 18:28 | ED_ITS ---
HPI - General Adult General: Chief complaint: Chest Pain Stated complaint: High blood pressurere, chest pressure Time Seen by Provider: 01/09/22 18:02 History of Present Illness: Patient is a 71-year-old female with a history of CAD with diffuse vessel disease, who initially presented to the hospital on 12/12/2021 for concerns of chest pressure. At time, patient was was a STEMI bashir rt. Patient was found to have diffuse vessel disease as and had a balloon angioplasty. Patient was then discharged home with close follow-up with Dr. Damon. Patient has not yet established care with Dr. Kassi Damon. Since her discharge on 12/20/2021, patient tells me that she has been feeling well. However around 3:00 today patient reports chest pressure while sitting down watching a TV show. Patient will follow up reports nausea and mild shortness of breath. Patient denies any fever/chills, cough, runny nose, sore throat, abdominal complaints, diarrhea melena or hematochezia. Onset:3 pm Duration:30 minutes Location:home Severity:moderate Associated symptoms: Reports chest pain; Deny dyspnea, nausea, rash, palpitations or vomiting Review of Systems Const: Denies: fever(s) or chills Eyes: Denies: change in vision ENMT: Denies: mouth pain Card: Reports: chest pain; Denies: palpitations Resp: Denies: dyspnea or non-productive cough GI: Denies: abdominal pain, nausea, vomiting or diarrhea : Denies: dysuria Musc: Denies: extremity pain Skin/Breast: Denies: rash or new lesions Neuro: Denies: weakness in extremities Psych: Reports: other (Normal mood) Jm/Lymph: Denies: easy bruising PFSH ED PFSH: Medical History Accelerated hypertension Atherosclerosis of coronary artery Cervical herniated disc Hyperlipidemia Hypertension Hypothyroidism Sciatica ST elevation NE (STEMI) Type 2 diabetes mellitus Vertigo Family History Father CAD (coronary artery disease) Mother Stroke Social History Smoking and tobacco status: never smoked Alcohol intake: never Housing: House Physical Exam Const: COMMON NORMALS: alert HENMT: COMMON NORMALS: atraumatic HEAD & SCALP: atraumatic MOUTH: moist mucous membranes not abnormal Eye: COMMON NORMALS: EOMs intact bilaterally and conjunctivae normal CO NJUNCTIVA: Yes conjunctivae normal Neck/C-Spine: COMMON NORMALS: full ROM and supple Resp: COMMON NORMALS: normal respiratory effort and clear to auscultation bilaterally AUSCULTATION: clear to auscultation bilaterally Cardio: COMMON NORMALS: regular rate RATE: regular rate OTHER: 2+ radial pulses b/l GI: COMMON NORMALS: Soft to palpation and non-tender PALPATION: Yes Soft to palpation Extremity: COMMON NORMALS: full ROM Neuro: SENSORIUM/ORIENTATION: Yes alert MOTOR EXAM: No Abnormal motor strength present and Other motor observations present (no focal motor deficits) Psych: COMMON NORMALS: speech normal SPEECH: Yes normal speech MOOD & AFFECT: Yes euthymic mood Course Vital Signs: Vital signs: Vital Signs Temperature 98.0 F 01/09/22 18:13 Pulse Rate 58 L 01/09/22 21:10 Respiratory Rate 15 01/09/22 21:10 Blood Pressure 150/79 01/09/22 21:10 Pulse Oximetry 97 01/09/22 21:10 MDM - General Adult Medical Decision Making 71-year-old female history hypertension, diabetes, CAD with diffuse vessel disease and a recent angiogram presenting to the emergency room for concerns of new onset of chest pressure since 3 PM today. Patient has had intermittent chest pressure lasting for 30 minutes at a time. On physical exam, patient is hemodynamically stable, 2+ radial pulses bilaterally. Observed in the emergency room, patient has no complaints of chest pain. Trop onin x2 within normal limit. EKG is similar to compared to before. I discussed case with Dr. Grajeda at 8:53 PM who at this time recommend close outpatient follow-up. Emir Damon recommended starting patient on Imdur for chest pain. Dr. Grajeda would like patient to be seen in clinic next week for close follow- up. I have given patient follow up with our continuous pillowcase cutter to be seen by our outpat ient by Dr. Grajeda for chest pain. Patient aware of a call from our continuous pillowcase cutter to schedule for appointment(s) and verbalizes understanding of the importance of following up. Rx imdur PRN chest pain Disposition: Discharge. Patient counseled regarding diagnostic impression, treatment plan. Patient given ED strict return precautions to return for continuation, worsening, or development of new symptoms. Instructed to f/u w/ Dr. Grajeda regarding symptoms today. Patient verbalized understanding. I have given patient strict return precaution for any signs of chest pain, diaphoresis, nausea/vomiting, abdominal complaints back pain, neck pain, or any new concerning complaints. Lab Data : 01/09/22 18:15 01/09/22 18:15 Radiology Impressions Chest X-Ray 01/09/22 18:11 IMPRESSION: No obvious acute consolidation. Suboptimal lung base assessment. Followup including lateral view may be obtained if clinically indicated. Laboratory Results WBC 9.7 10^3/uL (4.0-10.0) 01/09/22 18:15 RBC 4.02 10^6/uL (4.1-5.3) L 01/09/22 18:15 Hgb 11.8 g/dL (11.5-15.3) 01/09/22 18:15 Hct 35.1 % (37.0-47.0) L 01/09/22 18:15 MCV 87.3 fl (81-99) 01/09/22 18:15 MCH 29.4 pg (28.0-34.0) 01/09/22 18:15 MCHC 33.6 g/dL (30.0-36.0) 01/09/22 18:15 RDW 12.6 % (12.1-15.1) 01/09/22 18:15 Plt Count 435 10^3/cmm (130-400) H 01/09/22 18:15 MPV 8.8 fL (7.4-10.4) 01/09/22 18:15 Neut % (Auto) 57.2 % 01/09/22 18:15 Lymph % (Auto) 28.8 % 01/09/22 18:15 [place] % (Auto) 9.1 % 01/09/22 18:15 Eos % (Auto) 2.9 % 01/09/22 18:15 Baso % (Auto) 1.5 % 01/09/22 18:15 Neut # (Auto) 5.54 10^3/uL (1.8-7.7) 01/09/22 18:15 Lymph # (Auto) 2.8 10^3/uL (0.8-4.8) 01/09/22 18:15 [place] # (Auto) 0.9 10^3/uL (0.2-0.9) 01/09/22 18:15 Eos # (Auto) 0.3 10^3/uL (0.0-0.8) 01/09/22 18:15 Baso # (Auto) 0.2 10^3/uL (0.0-0.1) H 01/09/22 18:15 Nucleated RBC % (auto) 0 % 01/09/22 18:15 Nucleated RBCs # 0.0 /100WBC 01/09/22 18:15 Sodium 124 mmol/L (136-145) L 01/09/22 18:15 Potassium 4.5 mmol/L (3.5-5.1) 01/09/22 18:15 Chloride 89 mmol/L (98-107) L 01/09/22 18:15 Carbon Dioxide 22 mmol/L (22-29) 01/09/22 18:15 Anion Gap 17.5 (5-19) 01/09/22 18:15 BUN 12 mg/dL (8-23) 01/09/22 18:15 Creatinine 0.6 mg/dL (0.5-0.9) 01/09/22 18:15 GFR Calculation Not Reportable 01/09/22 18:15 Glucose 151 mg/dL (65-115) H 01/09/22 18:15 Calculated Osmolality 261 mOsm/kg (285-295) L 01/09/22 18:15 Calcium 9.2 mg/dL (8.5-10.5) 01/09/22 18:15 Total Bilirubin 0.2 mg/dL (0.15-1.2) 01/09/22 18:15 AST 17 U/L (0-32) 01/09/22 18:15 ALT 16 U/L (0-33) 01/09/22 18:15 Alkaline Phosphatase 83 IU/L (35-105) 01/09/22 18:15 Troponin T Baseline 9 ng/L (0-10) 01/09/22 18:15 Troponin T 120 Minute 8.49 ng/L (0-10) 01/09/22 20:05 Delta Troponin T -0.51 ABS# (0-10) L 01/09/22 20:05 Total Protein 7.2 g/dL (6.6-8.7) 01/09/22 18:15 Albumin 4.0 g/dL (3.5-5.2) 01/09/22 18:15 Globulin 3.2 g/dL (1.3-4.6) 01/09/22 18:15 Lipase 51 U/L (13-60) 01/09/22 18:15 Imaging Data Other Imaging: Radiologist's impression: [address] [address] XRay Report Signed Patient: Yesy Flores Unit #: [id number] : 1950 Age/Sex: 71 / F ADM Date: 01/09/22 Loc: ER Room/Bed: Attending Dr: Ordering Provider/Ordering MD: Miguel Angel Dominique MD Date of Service: 01/09/22 Procedure(s): XR chest 1V portable [id number] Accession Number(s): [id number] Report Number: [id number] PROCEDURE INFORMATION: Exam: XR Chest Exam date and time: 01/09/2022 6:28 PM Age: 71 years old Clinical indication: Angina; Additional info: Chest pain TECHNIQUE: Imaging protocol: Radiologic exam of the chest. Views: 1 view. COMPARISON: CR (CHEST, ) 12/18/2021 10:33 PM FINDINGS: Lungs: The lung bases are suboptimally assessed due to technique however the upper lungs are clear of focal consolidation. Pleural spaces: Unremarkable. No pleural effusion. No pneumothorax. Heart/Mediastinum: Cardiac silhouette appears normal in size. No obvious vascular congestion. Bones/joints: No acute osseous findings. Other findings: Single view was submitted. XR/XR chest 1V portable [id number] IMPRESSION: No obvious acute consolidation. Suboptimal lung base assessment. Followup including lateral view may be obtained if clinically indicated. ? Dictated By: Lucina Lopez MD Signed By: Lucina Lopez MD Signed Date/Time: 01/09/221908 DD/ 27 Discharge Plan Discharge Patient Disposition: Home Clinical Impression: Chest pain, Hyponatremia Condition: Stable Prescriptions: No Action lisinopril 10 mg tablet 10 mg PO DAILY 0RF methocarbamol 500 mg tablet 500 mg PO BID PRN (Reason: Muscle Pain) 0RF metformin 1,000 mg tablet 1,000 mg PO BID 0RF Hold Instructions: Resume on 12/21/21. glipizide 5 mg tablet 5 mg PO BID 0RF aspirin 81 mg tablet,chewable 81 mg PO DAILY 0RF coenzyme Q10 [Co Q-10] 50 mg capsule See Rx Instructions .ROUTE .COMPLEX 0RF Rx Instructions: 50 mg orally alternating days with krill capsule PRN; [id number]-ast [krill oil] 1,[id number] mg capsule See Rx Instructions .ROUTE .COMPLEX 0RF Rx Instructions: 1 cap orally alternating with co-q-10 PRN; levothyroxine 75 mcg tablet 75 mcg PO DAILY 0RF clopidogrel 75 mg Tablet 75 mg PO DAILY Qty: 90 3RF metoprolol tartrate 25 mg Tablet 25 mg PO BID@0900,2100 Qty: 120 3RF NAC 600 mg capsule 600 mg PO QPM 0RF Vitamin B-12 50 mcg tablet 50 mcg PO DAILY 0RF magnesium 30 mg tablet 30 mg PO DAILY 0RF niacin 500 mg tablet 500 mg PO DAILY 0RF zinc 50 mg tablet 50 mg PO DAILY 0RF Flonase Allergy Relief 50 mcg/actuation Fries,Suspension 1 spray INTRANASAL DAILY 0RF Rx Instructions: administer into each nostril Vitamin D3 25 mcg (1,000 unit) Tablet 25 mcg PO DAILY 0RF Ocuvite Adult 50 Plus 250-5-1 mg Capsule 1 cap PO DAILY 0RF Discharge Orders: Discharge ED (Routine); Ordered 01/09/22 Ordered By: Miguel Angel Dominique Referrals: Adama Key [Primary Care Provider] - Discharge Diet: Advance as tolerated Discharge Activity: Increase activity as tolerated Patient Instructions: Chest Pain (ED), Hyponatremia (ED) Activity Restrictions/Additional Instructions: Come back to the emergency room if your chest pain worsens, have any fever or chills, worsening shortness of breath, worsening exertional lightheadedness, or any new or concerning complaints. Our continuous pillowcase cutter will have you follow-up with Cardiology in the next few days. You would be expected to have a phone call with our continuous pillowcase cutter who will put you on the schedule. You can expect a call from us in the next 2-3 days. If you don't hear from us, call us back in the emergency room at [phone]. Coding Level of Care Code ED Ac/Dc Rewinder for Hu Manning Exam Comprehensive
[2022-01-09 18:48] LABS: Troponin(5th) Baseline 9 ng/L (0-10)
[2022-01-09 18:49] LABS: Alanine Aminotransferase 16 U/L (0-33); Alkaline Phosphatase 83 IU/L (35-105); Aspartate Amino Transferase 17 U/L (0-32); Blood Urea Nitrogen 12 mg/dL (8-23); Calcium 9.2 mg/dL (8.5-10.5); Carbon Dioxide 22 mmol/L (22-29); Chloride 89 mmol/L (98-107); Globulin 3.2 g/dL (1.3-4.6); Glucose 151 mg/dL (65-115); Lipase 51 U/L (13-60); Osmolality Calculated 261 mOsm/kg (285-295); Sodium 124 mmol/L (136-145); Total Bilirubin 0.2 mg/dL (0.15-1.2); Total Protein 7.2 g/dL (6.6-8.7)
[2022-01-09 18:56] LABS: Anion Gap 17.5 (5-19); Potassium 4.5 mmol/L (3.5-5.1)
[2022-01-09 20:43] LABS: Troponin 5 2HR 8.49 ng/L (0-10)
[2022-01-09 20:50] LABS: Troponin 5 2HR Delta -0.51 ABS# (0-10)
--- NOTE | 2022-01-10 10:43 | DCPLANNER ---
Addendum entered by Krysta Young 01/26/22 10:18: Patient had an appointment with [facility] - patient did attend appointment. Addendum entered by Krysta Young 01/18/22 12:21: Patient has a follow up appointment scheduled for Thursday, January 20, 2022 at 11:[address] Martínez at [facility]. Clinic will call patient with appointment information. Original Note: parts sales manager had message to schedule a follow up appointment for patient with cardiology. parts sales manager sent patients information to the front office staff at [facility]. Patients information will be printed and reviewed. Clinic will call patient with appointment information.
== END 2022-01-09 21:13 | disposition home or self-care (01) ==
PROVIDERS: Emergency Provider Emergency Medicine; PCP Family Medicine
DX: R07.9 Chest pain, unspecified (principal); E87.1 Hypo-osmolality and hyponatremia; Z79.84 Long term (current) use of oral hypoglycemic drugs; Z79.82 Long term (current) use of aspirin; Z79.02 Long term (current) use of antithrombotics/antiplatelets; I10 Essential (primary) hypertension; I25.10 Atherosclerotic heart disease of native coronary artery without angina pectoris; E78.5 Hyperlipidemia, unspecified; I25.2 Old myocardial infarction; E11.9 Type 2 diabetes mellitus without complications
CPT/HCPCS: 71045; 80053; 83690; 84484; 85025; 93005; 99285

== ENCOUNTER → 2022-01-20 10:45 | Outpatient (BNVA) | payer MEDICARE, SELFPAY | PROVIDERS: PCP Family Medicine; Visit Provider Internal Medicine Cardiovascular Disease | DX: I25.10 Atherosclerotic heart disease of native coronary artery without angina pectoris (principal); I10 Essential (primary) hypertension; E78.5 Hyperlipidemia, unspecified; E11.9 Type 2 diabetes mellitus without complications; Z79.84 Long term (current) use of oral hypoglycemic drugs | CPT/HCPCS: 99213; 99214 ==

== ENCOUNTER 2022-06-05 14:20 | Outpatient (CLI) | payer MEDICARE, SELFPAY ==
--- NOTE | 2022-06-05 14:33 | MM_ITS ---
WS: [id number] BILATERAL SCREENING DIGITAL TOMOSYNTHESIS MAMMOGRAM WITH CAD HISTORY: SCREENING COMPARISON: 05/12/2021, 04/30/2020 Bilateral CC and MLO views with tomosynthesis and synthetic mammography submitted. Computer aided det ection analyzed. Breast composition: There are scattered areas of fibroglandular density. No suspicious masses, microc alcifications or architectural distortion. Benign scattered calcifications. MM/[place] [id number] IMPRESSION: BI-RADS: 2-Benign FOLLOW UP: 1 Year Follow-up
== END 2022-06-05 14:21 | disposition home or self-care (01) ==
PROVIDERS: PCP Family Medicine; Visit Provider Family Medicine
DX: Z12.31 Encounter for screening mammogram for malignant neoplasm of breast (principal)
CPT/HCPCS: 77063; 77067

== ENCOUNTER → 2022-07-28 09:44 | Outpatient (BNVA) | payer MEDICARE, SELFPAY | PROVIDERS: PCP Family Medicine; Visit Provider Internal Medicine | DX: I25.10 Atherosclerotic heart disease of native coronary artery without angina pectoris (principal); I10 Essential (primary) hypertension; E78.5 Hyperlipidemia, unspecified; E11.9 Type 2 diabetes mellitus without complications; Z79.84 Long term (current) use of oral hypoglycemic drugs; I25.2 Old myocardial infarction | CPT/HCPCS: 99214 ==

== ENCOUNTER 2023-01-01 10:05 | Outpatient (CLI) | payer MEDICARE, SELFPAY ==
--- NOTE | 2023-01-01 10:16 | NM_ITS ---
WS: [id number] NUCLEAR MEDICINE HIDA SCAN CLINICAL INFORMATION: ACUTE RUQ ABDOMINAL PAIN TECHNIQUE: Following intravenous administration of 7.4 mCi of technetium 99m mebrofenin, images of th e abdomen were obtained over the course of 60 minutes. Next, gallbladder ejection fraction was determ ined by obtaining preprandial and one-hour postprandial images of the gallbladder following oral kyrie stion of Ensure. COMPARISON: None. FINDINGS: Normal hepatic uptake at 5 minutes. Gallbladder is visualized by 10 minutes. No evidence of acute cho lecystitis. Normal hepatic excretion. Normal common bile duct and small bowel activity. Gallbladder ejection fraction 82% within normal limits. No evidence of chronic cholecystitis. NM/NM hepatobiliary w phar* [id number] IMPRESSION: 1. No evidence of acute or chronic cholecystitis. 2. Gallbladder ejection fraction 82% within normal limits.
== END 2023-01-01 10:06 | disposition home or self-care (01) ==
LOC: RAD 10:06
PROVIDERS: PCP Family Medicine; Visit Provider Registered Nurse
DX: R10.11 Right upper quadrant pain (principal)
CPT/HCPCS: 78227; A9537

== ENCOUNTER → 2023-01-26 09:21 | Outpatient (BNVA) | payer MEDICARE, SELFPAY | PROVIDERS: PCP Family Medicine; Visit Provider Internal Medicine | DX: I25.10 Atherosclerotic heart disease of native coronary artery without angina pectoris (principal); I10 Essential (primary) hypertension; E78.5 Hyperlipidemia, unspecified; E11.9 Type 2 diabetes mellitus without complications; Z79.84 Long term (current) use of oral hypoglycemic drugs | CPT/HCPCS: 99214 ==

== ENCOUNTER 2023-02-19 10:15 | Observation (INO) | payer MEDICARE, SELFPAY ==
[2023-02-19] VITALS (7 sets, daily range): BP systolic 114–166; BP diastolic 61–88; PULSE 60–68; RESP 18–22; TEMP 36.3; O2SAT 98–100; BMI 30.2
--- NOTE | 2023-02-19 10:41 | ECG_ITS ---
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 Measurements Intervals [place] Rate: 57 P: 9 ME: 155 QRS: -2 QRSD: 77 T: -26 QT: 391 QTc: 381 Interpretive Statements SINUS BRADYCARDIA LOW QRS VOLTAGE IN PRECORDIAL LEADS [QRS DEFLECTION < 1.0 mV IN CHEST LEADS] Compared to ECG 01/09/2022 18:18:44 Low QRS voltage now present Sinus rhythm no longer present Myocardial infarct finding no longer present Electronically Signed On 02-19-2023 11:31:53 CDT by Marko Grajeda M.D. [id number]
--- NOTE | 2023-02-19 11:29 | ECG_ITS ---
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 Measurements Intervals [place] Rate: 61 P: 60 IA: 168 QRS: 60 QRSD: 93 T: 90 QT: 404 QTc: 409 Interpretive Statements SINUS RHYTHM LOW QRS VOLTAGE IN PRECORDIAL LEADS [QRS DEFLECTION < 1.0 mV IN CHEST LEADS] Compared to ECG 02/19/2023 13:42:58 No significant changes Electronically Signed On 02-19-2023 20:24:39 CDT by Marko Grajeda M.D. [id number]
--- NOTE | 2023-02-19 11:30 | XR_ITS ---
WS: [id number] Exam: XR chest 1V portable [id number] Date/Time of Exam: 02/19/2023 11:30 AM Reason For Exam: dyspnea Comparison 01/09/2022. Findings: The lungs are clear and fully expanded. Costophrenic angles are sharp. No infiltrates. Bronchovascula r relief appears normal. Cardiac silhouette is unremarkable. Bony elements are intact. IMPRESSION: Unremarkable chest radiograph.
--- NOTE | 2023-02-19 11:44 | W.ED.ARRPALP ---
HPI - Arrhythmia/Palpitations General: Chief Complaint: Arrhythmia/Palpitations Stated Complaint: high heart rate, headache, sob Time Seen by Provider: 02/19/23 11:28 History of Present Illness: This is a 72-year-old female who arrives by private vehicle. Patient reports she has been feeling unwell for the last week. She has had a headache for the last 4 days. She feels that her heart is racing with minimal activity. This was first noticed when she was outside in the heat watering her garden approximately 1 week ago. She thought she got overheated because she stopped sweating and started getting chilled. She went inside and rested for 2 or 3 days. However since then she has not been able to tolerate much exertion. For example, today she got out of the shower and noticed that her heart rate was up to 107 with just this minimal exertion. She felt labored with her respirations. No diaphoresis, nausea, chest discomfort, neck discomfort, arm numbness or discomfort or other anginal symptoms. She does have a history of a STEMI approximately 14 months ago. This involved a diagonal branch and she had an angioplasty. Patient does report that she was due for her metoprolol and so she took 25 mg instead of 12.5 mg this morning to control her heart rate. She has not been checking her blood pressure at home. Associated symptoms: Deny nausea, syncope or vomiting Review of Systems General: Reports: 10 or more systems reviewed and unremarkable except in HPI and below Narrative: Her primary concerns are fatigue, intermittent fast heartbeat with palpitations, a vague sense of dyspnea, and headaches on the right side of the head. Const: Denies: fever(s), chills or body aches Eyes: Denies: change in vision ENMT: Denies: throat pain Card: Denies: chest pain, edema or syncope Resp: Denies: productive cough GI: Denies: abdominal pain, nausea, vomiting or diarrhea : Denies: flank pain, dysuria or urinary frequency Musc: Denies: neck pain, back pain, extremity pain or extremity swelling Skin/Breast: Denies: rash or erythema Neuro: Denies: numbness in extremities, weakness in extremities, lack of coordination or difficulty walking [facility] PFSH: Medical History Accelerated hypertension Atherosclerosis of coronary artery Cervical herniated disc Hyperlipidemia Hypertension Hypothyroidism Sciatica ST elevation [place] (STEMI) Type 2 diabetes mellitus Vertigo Family History Father CAD (coronary artery disease) Mother Stroke Social History Smoking and tobacco status: never smoked Alcohol intake: never Substance/Drug Use: never Housing: House Physical Exam Const: COMMON NORMALS: no limitations, alert and well nourished EXAM LIMITATIONS: no altered mental status HENMT: COMMON NORMALS: normocephalic, atraumatic and external ears normal HEAD & SCALP: normocephalic and atraumatic EXTERNAL EAR: Yes external ears normal MOUTH: no muffled voice Eye: COMMON NORMALS: EOMs intact bilaterally, conjunctivae normal and no scleral icterus CONJUNCTIVA: Yes conjunctivae normal Neck/C-Spine: COMMON NORMALS: no JVD GENERAL: Yes normal visual inspection and Yes trachea midline Resp: COMMON NORMALS: normal respiratory effort, No use of accessory muscles and clear to auscultation bilaterally AUSCULTATION: clear to auscultation bilaterally Cardio: COMMON NORMALS: no JVD, regular rate and regular rhythm RATE: regular rate RHYTHM: regular rhythm GI: COMMON NORMALS: Soft to palpation and non-tender PALPATION: Yes Soft to palpation and No Guarding due to palpation present (GI) Extremity: COMMON NORMALS: normal to inspection Neuro: COMMON NORMALS: moves all extremities, no focal motor deficits and no sensory deficits noted SENSORIUM/ORIENTATION: Yes alert SPEECH: speech normal Psych: COMMON NORMALS: mental status grossly normal, Normal thought process present, cooperative, normal affect and speech normal SPEECH: Yes normal speech THOUGHT PROCESS: Normal thought process present Skin: COMMON NORMALS: no rashes or lesions noted, turgor normal and no jaundice GENERAL SKIN EXAM: no rashes or lesions noted and turgor normal Course Vital Signs: Vital signs: Vital Signs Pulse Rate 62 02/19/23 12:04 Respiratory Rate 22 H 02/19/23 12:04 Blood Pressure 132/77 02/19/23 12:04 Pulse Oximetry 99 02/19/23 12:04 Oxygen Delivery Me thod Room Air 02/19/23 12:04 MDM - Arrhythmia/Palpitations Medical Decision Making Differential diagnosis would include unstable angina/myocardial infarction, anemia, heart failure, pulmonary embolism, glycemic emergency, significant electrolyte abnormality, significant thyroid issue, hypertensive urgency, intermittent arrhythmia, others. The patient's EKG today shows a sinus bradycardia at a rate of 57. It is a sinus rhythm and there is a normal axis but there are new T wave inversions in lead III and aVF that were not present in the previous 2 EKGs. There is also what appears to be some small Q waves in lead III and aVF. No concerning ST segment elevations noted no ectopy. On my individual evaluation of the single view chest, there is a normal cardiomediastinal silhouette, normal bronchovascular markings, no significant effusions, no pneumothorax, no infiltrates. Updates The patient's white blood cell count was slightly elevated at 13,000. Normal hemoglobin. Normal platelet count. Neutrophil percentage is normal. D-dimer is 0.64. Age-adjusted cutoff for this patient is 0.74. This would be considered normal Sodium and chloride are both slightly low at 132 and 94. BUN and creatinine are within normal limits. No significant electrolyte abnormalities or glycemic abnormalities. Troponin #1 is 10. I went back and reassessed the patient. Her blood pressure is down to normal. Her heart rate is controlled. Her headache is resolved. Her dyspna is resolved. Explained to the patient that the cause of her symptoms is unclear. It could be related to blood pressure elevations. On the other hand, she has an abnormal EKG with inverted T waves that are new and they are in contiguous leads. I explained her risk factors and the possibility of worsening coronary artery disease. I explained the possibility of atypical anginal symptoms in a female. However, I also explained that there are other reasonable explanations that are still on the differential diagnosis as well. The patient was given the option of admission and consultation with cardiology versus discharge and prompt outpatient follow-up. She ultimately decided to have me go ahead and proceed with cardiology consultation. I spoke with Dr. Oliva. I explained the symptoms and EKG findings as well as relevant history. He has recommended that I admit to the hospitalist and he will do a consultation. Discussed with Dr Estrada for obs admit. Lab Data 02/19/23 11:59 02/19/23 11:59 Laboratory Results WBC 13.21 10^3/uL (3.29-11.43) H 02/19/23 11:59 RBC 4.61 10^6/uL (3.85-5.65) 02/19/23 11:59 Hgb 13.60 g/dL (11.27-16.99) 02/19/23 11:59 Hct 41.0 % (36-47) 02/19/23 11:59 MCV 88.9 fl (85-98) 02/19/23 11:59 MCH 29.5 pg (27-33) 02/19/23 11:59 MCHC 33.2 g/dL (30-55) 02/19/23 11:59 RDW 13.1 % (12.1-15.1) 02/19/23 11:59 Plt Count 375 10^3/cmm (157-399) 02/19/23 11:59 MPV 9.2 fL (7.4-10.4) 02/19/23 11:59 Neut % (Auto) 66.8 % 02/19/23 11:59 Lymph % (Auto) 22.9 % 02/19/23 11:59 [place] % (Auto) 8.0 % 02/19/23 11:59 Eos % (Auto) 1.1 % 02/19/23 11:59 Baso % (Auto) 0.8 % 02/19/23 11:59 Neut # (Auto) 8.83 10^3/uL (1.8-7.7) H 02/19/23 11:59 Lymph # (Auto) 3.0 10^3/uL (0.8-4.8) 02/19/23 11:59 [place] # (Auto) 1.1 10^3/uL (0.2-0.9) H 02/19/23 11:59 Eos # (Auto) 0.1 10^3/uL (0.0-0.8) 02/19/23 11:59 Baso # (Auto) 0.1 10^3/uL (0.0-0.1) 02/19/23 11:59 Nucleated RBC % (auto) 0 % 02/19/23 11:59 Nucleated RBCs # 0.0 /100WBC 02/19/23 11:59 D-Dimer 0.64 ug/mLFEU (0-0.59) H 02/19/23 11:59 Sodium 132 mmol/L (136-145) L 02/19/23 11:59 Potassium 4.8 mmol/L (3.5-5.1) 02/19/23 11:59 Chloride 94 mmol/L (98-107) L 02/19/23 11:59 Carbon Dioxide 27 mmol/L (22-29) 02/19/23 11:59 Anion Gap 15.8 (5-19) 02/19/23 11:59 BUN 14 mg/dL (8-23) 02/19/23 11:59 Creatinine 0.9 mg/dL (0.5-0.9) 02/19/23 11:59 GFR Calculation Not Reportable 02/19/23 11:59 Glucose 118 mg/dL (65-115) H 02/19/23 11:59 Calculated Osmolality 276 mOsm/kg (285-295) L 02/19/23 11:59 Calcium 9.7 mg/dL (8.5-10.5) 02/19/23 11:59 Total Bilirubin 0.3 mg/dL (0.15-1.2) 02/19/23 11:59 AST 16 U/L (0-32) 02/19/23 11:59 ALT 16 U/L (0-33) 02/19/23 11:59 Alkaline Phosphatase 91 U/L (35-105) 02/19/23 11:59 Troponin T Baseline 10 ng/L (0-10) 02/19/23 11:59 NT-Pro-B Natriuret Pep 148 pg/mL (0-125) H 02/19/23 11:59 Total Protein 7.3 g/dL (6.6-8.7) 02/19/23 11:59 Albumin 4.6 g/dL (3.5-5.2) 02/19/23 11:59 Globulin 2.7 g/dL (1.3-4.6) 02/19/23 11:59 Urine Color Yellow (Yellow) 02/19/23 11:31 Urine Appearance Clear (CLEAR) 02/19/23 11:31 Urine pH 6 (5-7) 02/19/23 11:31 Ur Specific [place] 1.010 (1.005-1.030) 02/19/23 11:31 Urine Protein Neg (Negative) 02/19/23 11:31 Urine Glucose (UA) Norm (Normal) 02/19/23 11:31 Urine Ketones Negative (Negative) 02/19/23 11:31 Urine Blood Neg (Negative) 02/19/23 11:31 Urine Nitrate Negative (Negative) 02/19/23 11:31 Urine Bilirubin Neg (Negative) 02/19/23 11:31 Urine Urobilinogen Norm mg/dL (Negative) 02/19/23 11:31 Ur Leukocyte Esterase Negative (Negative) 02/19/23 11:31 Discharge Plan Discharge Patient Disposition: Placed in Observation Clinical Impression: Dyspnea, Atherosclerosis of coronary artery, Type 2 diabetes mellitus, Palpitations, Elevated systolic blood pressure reading with diagnosis of hypertension, Headache Coding Level of Care Code ED [employer] for [employer] Manning
[2023-02-19] MEDS: aspirin 81 mg Chew Tablet 324 MG PO (11:50)
[2023-02-19] MEDS: nitroglycerin 1 gm/inch oint Pkt 1 INCH TOPICAL (11:51)
[2023-02-19 12:12] LABS: Basophils # 0.1 10^3/uL (0.0-0.1); Basophils % 0.8 %; Eosinophils # 0.1 10^3/uL (0.0-0.8); Eosinophils % 1.1 %; Lymphocytes % 22.9 %; Mean Corpuscular HGB Conc 33.2 g/dL (30-55); Mean Corpuscular Hemoglobin 29.5 pg (27-33); Mean Corpuscular Volume 88.9 fl (85-98); Mean Platelet Volume 9.2 fL (7.4-10.4); Monocytes # 1.1 10^3/uL (0.2-0.9); Neutrophils # 8.83 10^3/uL (1.8-7.7); Neutrophils % 66.8 %; Nucleated Red Blood Cells % 0 %; Platelet Count 375 10^3/cmm (157-399); Red Blood Count 4.61 10^6/uL (3.85-5.65); Red Cell Distribution Width 13.1 % (12.1-15.1); White Blood Count 13.21 10^3/uL (3.29-11.43)
[2023-02-19 12:15] LABS: Add Urine Microscopic? NO; Charge for UA Resulting for Rev
[2023-02-19 12:25] LABS: D Dimer 0.64 ug/mLFEU (0-0.59)
[2023-02-19 12:32] LABS: Bilirubin Urine Neg (Negative); Blood Urine Neg (Negative); Glucose Urine UA Norm (Normal); Ketones Urine Negative (Negative); Leukocyte Esterase Urine Negative (Negative); Nitrate Urine Negative (Negative); Protein Urine Neg (Negative); Urine Appearance Clear (CLEAR); Urine Color Yellow (Yellow); Urobilinogen Urine Norm (Negative); pH Urine 6 (5-7)
[2023-02-19 12:39] LABS: Troponin(5th) Baseline 10 ng/L (0-10)
[2023-02-19 12:45] LABS: Alanine Aminotransferase 16 U/L (0-33); Albumin Level 4.6 g/dL (3.5-5.2); Alkaline Phosphatase 91 U/L (35-105); Anion Gap 15.8 (5-19); Aspartate Amino Transferase 16 U/L (0-32); Blood Urea Nitrogen 14 mg/dL (8-23); Calcium 9.7 mg/dL (8.5-10.5); Carbon Dioxide 27 mmol/L (22-29); Chloride 94 mmol/L (98-107); Globulin 2.7 g/dL (1.3-4.6); Glucose 118 mg/dL (65-115); NT Pro B Type Natriuretic Pept 148 pg/mL (0-125); Osmolality Calculated 276 mOsm/kg (285-295); Potassium 4.8 mmol/L (3.5-5.1); Sodium 132 mmol/L (136-145); Total Bilirubin 0.3 mg/dL (0.15-1.2); Total Protein 7.3 g/dL (6.6-8.7)
--- NOTE | 2023-02-19 13:00 | P.HP_ITS ---
Providers/Chief Complaint Admitting Physician: Soo Estrada MD Primary Care Provider: Adama Key Chief Complaint: high heart rate, headache, sob History of Present Illness Yesy Flores is a 72 year old female who presented to the emergency room with chief complaint of palpitations and shortness of breath. She has a history of coronary artery disease having had a ST elevation [place] in November 2021. Over the past week or so she has not been feeling well. Symptoms are bit similar to what she experienced prior to her heart attack in 2021. It all started with her getting overheated 1 day working in her garden during the recent heat wave. After that she was exhausted. She began having dyspnea on exertion that has been progressively worsening. She is also had intermittent episodes of palpitations. Normally her heart rate is in the 50s to 60s. She has had at least 2 episodes of heart rate greater than 100 (105-111 at home). She is on chronic beta-blockade and has not missed any doses. It is really unusual for her heart rate to get that high. She had not been checking her blood pressure until today when she found it to be 132/76. This a little bit higher than her usual. She denies any chest pains over the past week. Has not had any nausea or vomiting like she did prior to her STEMI but she just has not felt well. She has had a headache located primarily on the right side of her head a couple of times. She has had runny nose which she attributes to allergies; no recent change. No sore throat or cough. She occasionally will have some swelling in her legs but nothing really to note recently. She had had some gallbladder discomfort and diarrhea for a while. She had a HIDA scan in December of this year that was unremarkable. She made some dietary adjustments and the symptoms have improved. No urinary symptoms to speak of. She has had lots of seed tick bites and chiggers from working in her garden this summer. She received a steroid neptali t on February 02 and has been using triamcinolone cream. In the emergency room today initial vitals showed pulse in the 60s, blood pressure 160s over 80s and oxygen saturation 100%. Initial twelve-lead EKG showed some inverted T waves compared to prior. Baseline troponin was 10. She had a headache upon arrival. She was given 1 inch of Nitropaste and a full aspirin and currently is feeling better with her symptoms resolved. At rest no shortness of breath. Headache resolved. No current chest pain or palpitations. Case was discussed with on- call cardiology given concern for anginal equivalent. She is being admitted to observation status for further evaluation and treatment. Review of Systems General: Reports: Other (ROS as per HPI or as otherwise noted here) Medications/Allergies Home Medications Medication Instructions Recorded Confirmed Last Taken Type glipizide 5 mg tablet 5 mg PO BID 07/29/20 02/19/23 02/19/23 History metformin 1,000 mg tablet 1,000 mg PO BID 07/29/20 02/19/23 02/19/23 History methocarbamol 500 mg tablet 500 mg PO BID PRN Muscle Pain 07/29/20 02/19/23 02/19/23 History levothyroxine 75 mcg tablet 75 mcg PO DAILY 12/19/21 02/19/23 02/19/23 History clopidogrel 75 mg tablet 75 mg PO DAILY #90 tabs 12/20/21 02/19/23 02/19/23 Rx acetylcysteine 600 mg capsule (NAC) 600 mg PO QPM 12/29/21 02/19/23 02/19/23 History aspirin 81 mg chewable tablet 81 mg PO DAILY 12/29/21 02/19/23 02/19/23 History coenzyme Q10 50 mg capsule (Co See Rx Instructions .Route .COMPLEX 12/29/21 02/19/23 02/19/23 History Q-10) cyanocobalamin (vitamin B-12) 50 50 mcg PO DAILY 12/29/21 02/19/23 02/19/23 History mcg tablet (Vitamin B-12) krill 1,000 mg-omega-3 170 mg-dha See Rx Instructions .Route .COMPLEX 12/29/21 02/19/23 01/08/22 History 50 mg-epa 80 xj-dabjqd-fryop capsule (krill oil) niacin 500 mg tablet 500 mg PO DAILY 12/29/21 02/19/23 02/19/23 History cholecalciferol (vitamin D3) 25 25 mcg PO DAILY 01/09/22 02/19/23 02/19/23 History mcg (1,000 unit) tablet (Vitamin D3) vit C,E,zinc,copper-wokym9r 250 1 cap PO DAILY 01/09/22 02/19/23 02/19/23 History mg-lutein 5 mg-zeaxanthin 1 mg capsule fluticasone propionate 50 1 spray intranasal DAILY PRN 01/20/22 02/19/23 Unknown History mcg/actuation nasal Allergy Symptoms spray,suspension (Flonase Allergy Relief) lisinopril 10 mg tablet 10 mg PO DAILY 08/07/22 02/19/23 02/19/23 History metoprolol tartrate 25 mg tablet 12.5 mg PO BID@0900,2100 #90 tabs 01/26/23 02/19/23 02/19/23 Rx magnesium 200 mg tablet 200 mg PO DAILY 02/19/23 02/19/23 02/19/23 History vitamin B complex 1 cap PO DAILY 02/19/23 02/19/23 02/19/23 History zinc acetate 50 mg (zinc) capsule 50 mg PO DAILY 02/19/23 02/19/23 02/19/23 History Allergies Allergy/AdvReac Type Severity Reaction Status Date / Time losartan Allergy Unknown Unknown Verified 02/19/23 10:34 Webdfuz-ACU-PsR Reductase Allergy ADV-Weaknes Verified 02/19/23 10:34 Inhibitor s [Girxokv-Vbb-Ing Reductase Inhibitor] Sulfa (Sulfonamide Allergy ALGY-Rash Verified 02/19/23 10:34 Antibiotics) PFSH Acute PFSH: Medical History (Updated 02/19/23 @ 14:14 by Soo Estrada MD) Atherosclerosis of coronary artery Cervical herniated disc 1 para 1 History of HIDA scan 12/2022 gallbladder EF 82% Hyperlipidemia Hypertension Hypothyroidism Sciatica ST elevation [place] (STEMI) Type 2 diabetes mellitus Vertigo Surgical History (Updated 02/19/23 @ 14:14 by Soo Estrada MD) History of cataract surgery History of vein stripping right lower extremity S/P coronary angiogram 11/2021 STEMI, occluded 1st diagonal treated with angioplasty, no stent due to diffuse nature of disease and size of vessel, ALEXIS 3 flow post procedure S/P tonsillectomy and adenoidectomy Family History Father CAD (coronary artery disease) Mother Stroke Social History Smoking and tobacco status: never smoked Alcohol intake: never Substance/Drug Use: never Housing: House Vitals/I&O/Wt Last Vital Signs Pulse 62 02/19/23 12:04 Resp 22 H 02/19/23 12:04 BP 132/77 02/19/23 12:04 Pulse Ox 99 02/19/23 12:04 O2 Del Method Room Air 02/19/23 12:04 Weight last 48 hrs Weight 68.039 kg Physical Exam Narrative: Patient is awake and alert, able to provide history. Normocephalic. Pupils are equally reactive. Nasopharynx with some clear rhinorrhea. Oropharynx with moist mucous membranes. Neck is supple. Lungs are clear to auscultation bilaterally without any rales rhonchi or wheezes noted cardiovascular exam reveals a regular rate and rhythm. No murmurs gallops or rubs. Abdomen is soft, nontender, positive bowel sounds. Extremities there is no pitting edema and pulses are 2+ and equal x4. Speech is clear, face symmetric, moves all extremities with no abnormal movements noted. Data 02/19/23 11:59 02/19/23 11:59 Other Labs: Laboratory Results WBC 13.21 10^3/uL (3.29-11.43) H 02/19/23 11:59 RBC 4.61 10^6/uL (3.85-5.65) 02/19/23 11:59 Hgb 13.60 g/dL (11.27-16.99) 02/19/23 11:59 Hct 41.0 % (36-47) 02/19/23 11:59 MCV 88.9 fl (85-98) 02/19/23 11:59 MCH 29.5 pg (27-33) 02/19/23 11:59 MCHC 33.2 g/dL (30-55) 02/19/23 11:59 RDW 13.1 % (12.1-15.1) 02/19/23 11:59 Plt Count 375 10^3/cmm (157-399) 02/19/23 11:59 MPV 9.2 fL (7.4-10.4) 02/19/23 11:59 Neut % (Auto) 66.8 % 02/19/23 11:59 Lymph % (Auto) 22.9 % 02/19/23 11:59 [place] % (Auto) 8.0 % 02/19/23 11:59 Eos % (Auto) 1.1 % 02/19/23 11:59 Baso % (Auto) 0.8 % 02/19/23 11:59 Neut # (Auto) 8.83 10^3/uL (1.8-7.7) H 02/19/23 11:59 Lymph # (Auto) 3.0 10^3/uL (0.8-4.8) 02/19/23 11:59 [place] # (Auto) 1.1 10^3/uL (0.2-0.9) H 02/19/23 11:59 Eos # (Auto) 0.1 10^3/uL (0.0-0.8) 02/19/23 11:59 Baso # (Auto) 0.1 10^3/uL (0.0-0.1) 02/19/23 11:59 Nucleated RBC % (auto) 0 % 02/19/23 11:59 Nucleated RBCs # 0.0 /100WBC 02/19/23 11:59 D-Dimer 0.64 ug/mLFEU (0-0.59) H 02/19/23 11:59 Sodium 132 mmol/L (136-145) L 02/19/23 11:59 Potassium 4.8 mmol/L (3.5-5.1) 02/19/23 11:59 Chloride 94 mmol/L (98-107) L 02/19/23 11:59 Carbon Dioxide 27 mmol/L (22-29) 02/19/23 11:59 Anion Gap 15.8 (5-19) 02/19/23 11:59 BUN 14 mg/dL (8-23) 02/19/23 11:59 Creatinine 0.9 mg/dL (0.5-0.9) 02/19/23 11:59 GFR Calculation Not Reportable 02/19/23 11:59 Glucose 118 mg/dL (65-115) H 02/19/23 11:59 Calculated Osmolality 276 mOsm/kg (285-295) L 02/19/23 11:59 Calcium 9.7 mg/dL (8.5-10.5) 02/19/23 11:59 Total Bilirubin 0.3 mg/dL (0.15-1.2) 02/19/23 11:59 AST 16 U/L (0-32) 02/19/23 11:59 ALT 16 U/L (0-33) 02/19/23 11:59 Alkaline Phosphatase 91 U/L (35-105) 02/19/23 11:59 Troponin T Baseline 10 ng/L (0-10) 02/19/23 11:59 NT-Pro-B Natriuret Pep 148 pg/mL (0-125) H 02/19/23 11:59 Total Protein 7.3 g/dL (6.6-8.7) 02/19/23 11:59 Albumin 4.6 g/dL (3.5-5.2) 02/19/23 11:59 Globulin 2.7 g/dL (1.3-4.6) 02/19/23 11:59 Urine Color Yellow (Yellow) 02/19/23 11:31 Urine Appearance Clear (CLEAR) 02/19/23 11:31 Urine pH 6 (5-7) 02/19/23 11:31 Ur Specific [place] 1.010 (1.005-1.030) 02/19/23 11:31 Urine Protein Neg (Negative) 02/19/23 11:31 Urine Glucose (UA) Norm (Normal) 02/19/23 11:31 Urine Ketones Negative (Negative) 02/19/23 11:31 Urine Blood Neg (Negative) 02/19/23 11:31 Urine Nitrate Negative (Negative) 02/19/23 11:31 Urine Bilirubin Neg (Negative) 02/19/23 11:31 Urine Urobilinogen Norm mg/dL (Negative) 02/19/23 11:31 Ur Leukocyte Esterase Negative (Negative) 02/19/23 11:31 A&P Assessment and plan (1) Dyspnea on exertion: Over the last week with fatigue, headache, palpitations, blood pressures higher than baseline. Symptoms similar to what she experienced prior to STEMI in 11/2021. Onset of symptoms occurred after she got overheated working in her garden last weekend. Today the shortness of breath and palpitations after getting in the shower were significant enough that she presented to the emergency room for evaluation. She had nonspecific T wave changes noted on EKG compared to prior. Concern is for an anginal equivalent. (2) Atherosclerosis of coronary artery: Known CAD, last cath 11/2021 at time of STEMI revealed a completely occluded first diagonal that was treated with angioplasty. Secondary to diffuse nature of disease and size of vessel a stent was not placed. EF at time 50%. On aspirin and plavix, betablocker and niacin; allergy to statins. Follows with Dr. Grajeda outpatient last seeing him at the beginning of this month. 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 Chronically on lisinopril in addition to beta blockade. (4) Hyperlipidemia: Statin allergy. Chroncially on Niacin, krill oil. (5) Type 2 diabetes mellitus: Chronically on glipizide and metformin. Non-insulin requiring. Without compl ications. (6) Hypothyroidism: Chronically on levothyroxine. Plan D-dimer in normal age adjusted range Headache at presentation now resolved Observation admission Cardiology consultation Serial cardiac enzymes Limited Echo Check a1C, lipids, tsh secondary to symptoms of dyspnea on exertion, palpitations, hyperlipidemia with statin allergy, known coronary artery disease. Reportedly had labs done by primary care provider recently but they are not available for direct review at this time and not noted to have been scanned into record at time of most recent cardiology clinic visit Continue home aspirin, Plavix, beta-blockade, niacin and levothyroxine Continue Nitropaste All other home medications presently held Sliding scale insulin presently for diabetes Supportive care otherwise Plans were discussed with patient and she was given an opportunity to ask questions VTE prophylaxis: Lovenox and SCDs GI Prophylaxis: PPI Telemetry: Ordered secondary to tachycardia and palpitations along with presenting concerns Alvarez: Not currently indicated Line(s): Peripheral IV Disposition plan: Anticipate discharge home with outpatient follow-up to cardiology and primary care provider Code Status: Full code Attestations Medical Necessity Statement*: Currently anticipate a stay less than two midnights in this patient with known coronary artery disease presenting with symptoms similar to what she experienced prior to STEMI in 11/2021. Current EKG with nonspecific changes and baseline troponin is within normal range. Multiple associated conditions as describe increase risk of recurrent coronary disease. Diagnoses Dyspnea on exertion R06.09 Atherosclerosis of coronary artery I25.10 Hypertension I10 Hyperlipidemia E78.5 Type 2 diabetes mellitus E11.9 Hypothyroidism E03.9
--- NOTE | 2023-02-19 13:11 | USCV_ITS ---
Yesy Flores Age: 72 Gender: F : 1950 Exam Date: 02/19/2023 14:12 Ordering Phys: Soo Estrada MD Technologist: Wilbert Ruvalcaba [place] [facility] [place]: tach BP: 121 / 69 HR: 62 Rhythm: Sinus Technical Quality: Adequate MEASUREMENTS (Male / Female) Normal Values 2D ECHO LV Diastolic Diameter PLAX 3.2 cm 4.2 - 5.9 / 3.9 - 5.3 cm LV Systolic Diameter PLAX 1.9 cm IVS Diastolic Thickness 0.9 cm 0.6 - 1.0 / 0.6 - 0.9 cm IVS Systolic Thickness 0.9 cm LVPW Diastolic Thickness 1.1 cm 0.6 - 1.0 / 0.6 - 0.9 cm LVPW Systolic Thickness 1.4 cm LVOT Diameter 2.1 cm LV Ejection Fraction 2D Teich 72.7 % LV Ejection Fraction MOD 2C 72.5 % LV Ejection Fraction 2C AL 72.8 % LA Diameter 2.8 cm IVC Diameter 1.8 cm FINDINGS Left Ventricle Normal left ventricular size and systolic function, EF 72 %. No regional wall motion abnormalities. Right Ventricle The right ventricle is normal in size and function. Right Atrium The right atrium is normal in size. Left Atrium The left atrium is normal in size. Mitral Valve Mild mitral annular calcification. Aortic Valve No gross abnormalities noted Tricuspid Valve No gross abnormalities noted Pulmonic Valve Pulmonic valve not well visualized. Pericardium Normal pericardium without effusion. Aorta Normal ascending aorta dimension. IVC Inferior vena cava not visualized. CONCLUSIONS Normal left ventricular size and systolic function, EF 72 %. No regional wall motion abnormalities. Normal chamber sizes. No gross valvular abnormalities noted There is no pericardial effusion. There are no intracardiac masses. Technically somewhat difficult study Dr Sunil Oliva MD FACC (Electronically Signed) Final Date: 19 February 2023 21:18 S
--- NOTE | 2023-02-19 13:29 | ECG_ITS ---
[facility] Test Date: 2023-02-19 Pat Name: Yesy Flores Department: Room: Gender: Female Refresh Technician: : 1950 Requested By: Jann Akers Order Number: [id number] Rachell MD: Marko Grajeda M.D. Measurements Intervals [place] Rate: 60 P: 55 RI: 168 QRS: 58 QRSD: 76 T: 95 QT: 406 QTc: 408 Interpretive Statements SINUS RHYTHM LOW QRS VOLTAGE IN PRECORDIAL LEADS [QRS DEFLECTION < 1.0 mV IN CHEST LEADS] Compared to ECG 02/19/2023 10:44:15 Sinus bradycardia no longer present Electronically Signed On 02-19-2023 20:41:31 CDT by Marko Grajeda M.D. [id number]
[2023-02-19 15:27] LABS: Troponin 5 2HR 9.64 ng/L (0-10); Troponin 5 2HR Delta -0.36 ABS# (0-10)
[2023-02-19] MEDS: enoxaparin 40 mg/0.4 mL Syringe SUBCUT (16:34)
[2023-02-19 16:38] LABS: Glucose Point of Care 125 mg/dL (70-110)
--- NOTE | 2023-02-19 16:51 | P.CONIM_ITS ---
Providers/Reason For Consult Consulting Physician/Specialty*: SONIA Oliva MD/cardiology Reason for Consult*: Patient with chest pain/shortness of breath, recent PCI Requesting Physician: Dr. Estrada Attending Physician: Soo Estrada MD Primary Care Provider: Adama Key History of Present Illness History of Present Illness Yesy Flores is a 72 year old female with a history of atherosclerotic heart diseas, high blood pressure, dyslipidemia and type 2 diabetes, is admitted to hospital to the emergency room where she presented with complaints of a fast heartbeat and shortness of breath. According to the patient, she was in her baseline state of health up until couple of weeks ago when she was working out in her garden. It was very hot and humid outside. Patient seems to think that she was overheated. She started feeling weak since then. She has been having episodes of fast heartbeat where the heart rate may go for anywhere from 100 to 120 bpm. She also was having associated shortness of breath. This morning as she got out of the shower, she became short of breath and also tachycardic. Heart rate was around 110 or so. She did not have any chest pain or chest tightness. No nausea or vomiting. No abdominal pain. No dysuria. Because of the recurrence of the symptoms, she was brought to the emergency room. Her initial cardiac work-up was unremarkable. She is admitted to hospital for further evaluation and management. According the patient, her baseline heart rate usually stays in the 50s and 60s. She had quite a few episodes of fast heartbeats within the last couple of weeks. In November 2021, she presented with an acute ST elevation myocardial infarction involving the lateral wall region. Cardiac catheterization revealed occlusion of the intermedius artery. She had plain old balloon angioplasty of this lesion. Since the intervention, she has been doing okay. She has been co mpliant with medications. She has been participating in the cardiac rehab exercise program. No smoking abuse or alcohol abuse. Her D-dimer was minimally elevated-normal, adjusted for age. Troponin T so far is negative. Review of Systems Narrative: CONSTITUTIONAL: No fever or chills. EYES: No blurring of vision or other visual disturbances lately. ENT: No hoarseness of voice, auditory disturbances or sore throat. CARDIOVASCULAR: As mentioned above. RESPIRATORY: Shortness of breath with exertion GASTROINTESTINAL: No hematemesis or melena. GENITOURINARY: No dysuria or hematuria. INTEGUMENTARY: No skin rashes or history of skin cancer. NEURO: No transient ischemic attacks or amaurosis. PSYCHIATRIC: No history of psychosis or major depression. HEMATOLOGIC: No bleeding disorders or significant anemia. ENDOCRINE: No history of polyuria or polydipsia. MUSCULOSKELETAL: No recent joint pain or swelling. ALLERGY/IMMUNOLOGY: As mentioned above. Medications/Allergies Home Medications Medication Instructions Recorded Confirmed Last Taken Type glipizide 5 mg tablet 5 mg PO BID 07/29/20 02/19/23 02/19/23 History metformin 1,000 mg tablet 1,000 mg PO BID 07/29/20 02/19/23 02/19/23 History methocarbamol 500 mg tablet 500 mg PO BID PRN Muscle Pain 07/29/20 02/19/23 02/19/23 History levothyroxine 75 mcg tablet 75 mcg PO DAILY 12/19/21 02/19/23 02/19/23 History clopidogrel 75 mg tablet 75 mg PO DAILY #90 tabs 12/20/21 02/19/23 02/19/23 Rx acetylcysteine 600 mg capsule (NAC) 600 mg PO QPM 12/29/21 02/19/23 02/19/23 History aspirin 81 mg chewable tablet 81 mg PO DAILY 12/29/21 02/19/23 02/19/23 History coenzyme Q10 50 mg capsule (Co See Rx Instructions .Route .COMPLEX 12/29/21 02/19/23 02/19/23 History Q-10) cyanocobalamin (vitamin B-12) 50 50 mcg PO DAILY 12/29/21 02/19/23 02/19/23 History mcg tablet (Vitamin B-12) krill 1,000 mg-omega-3 170 mg-dha See Rx Instructions .Route .COMPLEX 12/29/21 02/19/23 01/08/22 History 50 mg-epa 80 yy-byvnyz-pzcwx capsule (krill oil) niacin 500 mg tablet 500 mg PO DAILY 12/29/21 02/19/23 02/19/23 History cholecalciferol (vitamin D3) 25 25 mcg PO DAILY 01/09/22 02/19/23 02/19/23 History mcg (1,000 unit) tablet (Vitamin D3) vit C,E,zinc,copper-wgsog6u 250 1 cap PO DAILY 01/09/22 02/19/23 02/19/23 History mg-lutein 5 mg-zeaxanthin 1 mg capsule fluticasone propionate 50 1 spray intranasal DAILY PRN 01/20/22 02/19/23 Unknown History mcg/actuation nasal Allergy Symptoms spray,suspension (Flonase Allergy Relief) lisinopril 10 mg tablet 10 mg PO DAILY 08/07/22 02/19/23 02/19/23 History metoprolol tartrate 25 mg tablet 12.5 mg PO BID@0900,2100 #90 tabs 01/26/23 02/19/23 02/19/23 Rx magnesium 200 mg tablet 200 mg PO DAILY 02/19/23 02/19/23 02/19/23 History vitamin B complex 1 cap PO DAILY 02/19/23 02/19/23 02/19/23 History zinc acetate 50 mg (zinc) capsule 50 mg PO DAILY 02/19/23 02/19/23 02/19/23 History Allergies Allergy/AdvReac Type Severity Reaction Status Date / Time losartan Allergy Unknown Unknown Verified 02/19/23 10:34 Ehvnlyv-QYE-TiB Reductase Allergy ADV-Weaknes Verified 02/19/23 10:34 Inhibitor s [Kncorjw-Nfe-Ooj Reductase Inhibitor] Sulfa (Sulfonamide Allergy ALGY-Rash Verified 02/19/23 10:34 Antibiotics) Current Medications Generic Name Dose Route Start Last Admin Trade Name Freq PRN Reason Stop Dose Admin Enoxaparin Sodium 40 mg 02/19/23 15:05 02/19/23 16:34 Enoxaparin 40 Mg/0.4 Ml Syringe SUBCUT 40 mg Q24H ALEXANDRE Administration PFSH Acute PFSH: Medical History Atherosclerosis of coronary artery Cervical herniated disc 1 para 1 History of HIDA scan 12/2022 gallbladder EF 82% Hyperlipidemia Hypertension Hypothyroidism Sciatica ST elevation [place] (STEMI) Type 2 diabetes mellitus Vertigo Surgical History History of cataract surgery History of vein stripping right lower extremity S/P coronary angiogram 11/2021 STEMI, occluded 1st diagonal treated with angioplasty, no stent due to diffuse nature of disease and size of vessel, ALEXIS 3 flow post procedure S/P tonsillectomy and adenoidectomy Family History Father CAD (coronary artery disease) Mother Stroke Social History Smoking and tobacco status: never smoked Alcohol intake: never Substance/Drug Use: never Housing: House Vitals/I&O/Wt Last Vital Signs Temp 97.4 F L 02/19/23 15:22 Pulse 61 02/19/23 15:22 Resp 18 02/19/23 15:22 BP 127/68 02/19/23 15:22 Pulse Ox 98 02/19/23 15:22 O2 Del Method Room Air 02/19/23 15:27 Weight last 48 hrs Weight 150 lb Physical Exam Narrative: GENERAL: The patient is alert and oriented times three. Not in any acute dist ress. HEENT: No significant pallor, icterus or lymphadenopathy.Oral cavity: There are no mucous membrane lesions. NECK: Trachea appears to be central. No masses noted. No JVD or thyromegaly appreciated. RESPIRATORY: Chest is symmetrical. No intercostals muscle retraction or any accessory muscle activation. There is no chest wall tenderness. Breath sounds are heard bilaterally. No rales or rhonchi heard. No evidence of any consolidation. BREASTS: Deferred. HEART: The heart sounds are normal. No S3 or S4. No significant murmurs. No pericardial rub ABDOMEN: No vessel pulsations or distention. No tenderness. No organomegaly appreciated. Bowel sounds are normally heard. : Deferred. RECTAL: Deferred. LYMPHATIC: No lymphadenopathy noted in the neck. EXTREMITIES: No edema or cyanosis. No clubbing. MUSCULOSKELETAL: No acute joint deformities or swelling SKIN: There are no significant rashes or ecchymosis NEUROPSYCHIATRIC: The patient is alert and oriented x3. Appears to be in a good mood. No tremors or rigidity noted. Data 02/19/23 11:59 02/19/23 11:59 Other Labs: Laboratory Last Values WBC 13.21 10^3/uL (3.29-11.43) H 02/19/23 11:59 RBC 4.61 10^6/uL (3.85-5.65) 02/19/23 11:59 Hgb 13.60 g/dL (11.27-16.99) 02/19/23 11:59 Hct 41.0 % (36-47) 02/19/23 11:59 MCV 88.9 fl (85-98) 02/19/23 11:59 MCH 29.5 pg (27-33) 02/19/23 11:59 MCHC 33.2 g/dL (30-55) 02/19/23 11:59 RDW 13.1 % (12.1-15.1) 02/19/23 11:59 Plt Count 375 10^3/cmm (157-399) 02/19/23 11:59 MPV 9.2 fL (7.4-10.4) 02/19/23 11:59 Neut % (Auto) 66.8 % 02/19/23 11:59 Lymph % (Auto) 22.9 % 02/19/23 11:59 [place] % (Auto) 8.0 % 02/19/23 11:59 Eos % (Auto) 1.1 % 02/19/23 11:59 Baso % (Auto) 0.8 % 02/19/23 11:59 Neut # (Auto) 8.83 10^3/uL (1.8-7.7) H 02/19/23 11:59 Lymph # (Auto) 3.0 10^3/uL (0.8-4.8) 02/19/23 11:59 [place] # (Auto) 1.1 10^3/uL (0.2-0.9) H 02/19/23 11:59 Eos # (Auto) 0.1 10^3/uL (0.0-0.8) 02/19/23 11:59 Baso # (Auto) 0.1 10^3/uL (0.0-0.1) 02/19/23 11:59 Nucleated RBC % (auto) 0 % 02/19/23 11:59 Nucleated RBCs # 0.0 /100WBC 02/19/23 11:59 D-Dimer 0.64 ug/mLFEU (0-0.59) H 02/19/23 11:59 Sodium 132 mmol/L (136-145) L 02/19/23 11:59 Potassium 4.8 mmol/L (3.5-5.1) 02/19/23 11:59 Chloride 94 mmol/L (98-107) L 02/19/23 11:59 Carbon Dioxide 27 mmol/L (22-29) 02/19/23 11:59 Anion Gap 15.8 (5-19) 02/19/23 11:59 BUN 14 mg/dL (8-23) 02/19/23 11:59 Creatinine 0.9 mg/dL (0.5-0.9) 02/19/23 11:59 GFR Calculation Not Reportable 02/19/23 11:59 Glucose 118 mg/dL (65-115) H 02/19/23 11:59 POC Glucose 125 mg/dL (70-110) H 02/19/23 16:28 Calculated Osmolality 276 mOsm/kg (285-295) L 02/19/23 11:59 Calcium 9.7 mg/dL (8.5-10.5) 02/19/23 11:59 Total Bilirubin 0.3 mg/dL (0.15-1.2) 02/19/23 11:59 AST 16 U/L (0-32) 02/19/23 11:59 ALT 16 U/L (0-33) 02/19/23 11:59 Alkaline Phosphatase 91 U/L (35-105) 02/19/23 11:59 Troponin T Baseline 10 ng/L (0-10) 02/19/23 11:59 Troponin T 120 Minute 9.64 ng/L (0-10) 02/19/23 14:52 Delta Troponin T -0.36 ABS# (0-10) L 02/19/23 14:52 NT-Pro-B Natriuret Pep 148 pg/mL (0-125) H 02/19/23 11:59 Total Protein 7.3 g/dL (6.6-8.7) 02/19/23 11:59 Albumin 4.6 g/dL (3.5-5.2) 02/19/23 11:59 Globulin 2.7 g/dL (1.3-4.6) 02/19/23 11:59 Urine Color Yellow (Yellow) 02/19/23 11:31 Urine Appearance Clear (CLEAR) 02/19/23 11:31 Urine pH 6 (5-7) 02/19/23 11:31 Ur Specific [place] 1.010 (1.005-1.030) 02/19/23 11:31 Urine Protein Neg (Negative) 02/19/23 11:31 Urine Glucose (UA) Norm (Normal) 02/19/23 11:31 Urine Ketones Negative (Negative) 02/19/23 11:31 Urine Blood Neg (Negative) 02/19/23 11:31 Urine Nitrate Negative (Negative) 02/19/23 11:31 Urine Bilirubin Neg (Negative) 02/19/23 11:31 Urine Urobilinogen Norm mg/dL (Negative) 02/19/23 11:31 Ur Leukocyte Esterase Negative (Negative) 02/19/23 11:31 Other data: EKG from today revealed sinus rhythm with a rate of 64 bpm. Some early repolarization changes in the inferior leads. Nonspecific T wave changes in the high lateral leads. A&P Assessment and plan (1) Tachyarrhythmia: The nature of the tachyarrhythmia is not clear at this time. Patient may be closely monitored on telemetry. Most likely this is due to some form of benign supraventricular arrhythmia. (2) Dyspnea on exertion: The dyspnea on exertion, he is unexplained at this time. Patient has no evidence of any heart failure or pulm embolism. Possibility of coronary ischemia causing this is a consideration. I may go ahead and do an echocardiogram, to further evaluate. We also may schedule her for a Myocardial perfusion imaging. After reviewing these results, further recommendations will be made. (3) Hypertension: The blood pressure is fairly under control at this time. May continue on the current medications. (4) Hyperlipidemia: May continue on the statin. (5) Type 2 diabetes mellitus: The blood sugar seems to be fairly under control. May continue on the current medications. (6) Hypothyroidism: Clinically euthyroid. May continue on the current treatment. (7) Atherosclerosis of coronary artery: Patient is angiogram findings from November of last year is as mentioned above. Possibility of restenosis of the intermediate artery is a consideration. Plan We may consider going ahead with a stress test tomorrow to further evaluate the symptoms. Patient may be closely monitored on telemetry. An echocardiogram would be helpful to evaluate the left-ventricular function and rule out any other pathology. Based on the results of the above tests and the patient's clinical progress, further recommendations will be made. Thank you for the opportunity to evaluate this patient and make these recommendations [facility] Medical Necessity Statement: Patient requires continued hospital stay for close monitoring and further management Coding Level of Care Code 21811 Diagnoses Tachyarrhythmia R00.0 Dyspnea on exertion R06.09 Hypertension I10 Hyperlipidemia E78.5 Type 2 diabetes mellitus E11.9 Hypothyroidism E03.9 Atherosclerosis of coronary artery I25.10
--- NOTE | 2023-02-19 17:22 | ECG_ITS ---
[facility] Test Date: 2023-02-19 Pat Name: Yesy Flores Department: Room: 254 Gender: Female Combat Information Center Officer: : 1950 Requested By: Jann Akers Order Number: [id number] Rachell MD: Marko Grajeda M.D. Measurements Intervals [place] Rate: 64 P: 58 IA: 171 QRS: 72 QRSD: 69 T: 93 QT: 402 QTc: 415 Interpretive Statements SINUS RHYTHM LOW QRS VOLTAGE IN PRECORDIAL LEADS [QRS DEFLECTION < 1.0 mV IN CHEST LEADS] Compared to ECG 02/19/2023 13:43:56 No significant changes Electronically Signed On 02-19-2023 20:37:31 CDT by Marko Grajeda M.D. [id number]
[2023-02-19] MEDS: nitroglycerin 1 gm/inch oint Pkt 0.5 INCH TOPICAL (17:50)
--- NOTE | 2023-02-19 18:40 | ECG_ITS ---
[facility] Test Date: 2023-02-20 Pat Name: Yesy Flores Department: Room: 254 Gender: Female Php Website Developer: Anafaisal NicholeLida : 1950 Requested By: Sunil Oliva Order Number: [id number] Rachell MD: Sunil Oliva M.D. Interpretive Statements NAME OF STUDY: LEXISCAN SESTAMIBI STRESS TEST INDICATION: Chest Pain, PROCEDURE: At the baseline, the EKG revealed normal sinus rhythm with possible old lateral wall IN. The baseline heart was 60 bpm with a blood pressue of 139/65 mm of Hg Lexiscan was infused over a period of 20 seconds. A total of 0.4 milligrams of Lexiscan was infused. The stress phase was continued for a total of 5 minutes. Heart rate at the end of the stress phase was 100 bpm with a blood pressure 90/55 mm of Hg. The EKG at the peak infusion revealed no significant changes. Sestamibi was injected 20 seconds after the Lexiscan infusion. Heart rate at the end of the recovery phase was 64 bpm with a blood pressure of 107/57 mm of Hg. CONCLUSION: 1. No significant EKG changes with the LexiScan infusion 2. No LexiScan induced chest pain or cardiac arrhythmia 3. Normal blood pressure and heart rate response 4. Sestamibi/sestamibi perfusion scan pending; see separate report. Electronically Signed On 02-21-2023 14:55:46 CDT by Sunil Oliva M.D. [id number]
[2023-02-19] MEDS: acetaminophen 325 mg Tablet 650 MG PO (19:32)
[2023-02-19 20:18] LABS: Troponin 5 6HR 8.36 ng/L (0-10); Troponin 5 6HR Delta -1.64 ng/L (0-12)
[2023-02-19] MEDS: metoprolol tartrate 25 mg Tablet 12.5 MG PO (21:30)
[2023-02-19 21:36] LABS: Glucose Point of Care 124 mg/dL (70-110)
[2023-02-20] VITALS (15 sets, daily range): BP systolic 107–149; BP diastolic 57–97; PULSE 53–81; RESP 16–20; TEMP 36.6–36.9; O2SAT 93–100
[2023-02-20] MEDS: nitroglycerin 1 gm/inch oint Pkt 0.5 INCH TOPICAL ×2 (01:19→05:44)
[2023-02-20 05:13] LABS: Basophils # 0.1 10^3/uL (0.0-0.1); Eosinophils # 0.2 10^3/uL (0.0-0.8); Eosinophils % 2.3 %; Hematocrit 39.6 % (36-47); Lymphocytes # 3.8 10^3/uL (0.8-4.8); Lymphocytes % 43.9 %; Mean Corpuscular HGB Conc 32.8 g/dL (30-55); Mean Corpuscular Hemoglobin 29.5 pg (27-33); Mean Corpuscular Volume 89.8 fl (85-98); Mean Platelet Volume 9.3 fL (7.4-10.4); Monocytes # 0.9 10^3/uL (0.2-0.9); Monocytes % 10.5 %; Neutrophils # 3.61 10^3/uL (1.8-7.7); Nucleated Red Blood Cells % 0 %; Platelet Count 332 10^3/cmm (157-399); Red Blood Count 4.41 10^6/uL (3.85-5.65); White Blood Count 8.61 10^3/uL (3.29-11.43)
[2023-02-20 05:29] LABS: Chol HDL Ratio 3.87 mg/dL (0.0-4.40); Cholesterol 232 mg/dL (0-200); HDL Cholesterol 60 mg/dL (60-100); LDL Cholesterol Calculated 144 mg/dL (50-129); Triglycerides 139 mg/dL (0-150)
[2023-02-20 05:34] LABS: Estmated Average Glucose 154
[2023-02-20 05:37] LABS: Anion Gap 11.5 (5-19); Blood Urea Nitrogen 15 mg/dL (8-23); Calcium 9.3 mg/dL (8.5-10.5); Carbon Dioxide 28 mmol/L (22-29); Chloride 96 mmol/L (98-107); Glucose 145 mg/dL (65-115); Magnesium 1.6 mg/dL (1.7-2.3); Osmolality Calculated 275 mOsm/kg (285-295); Phosphorus 3.8 mg/dL (2.5-4.5); Potassium 4.5 mmol/L (3.5-5.1); Sodium 131 mmol/L (136-145); Thyroid Stimulating Hormone 0.71 uIU/mL (0.27-4.20)
[2023-02-20] MEDS: regadenoson 0.4 Mg/5 ml Syringe IVP (07:15)
[2023-02-20] MEDS: aminophylline 25 mg/mL SDV 10 mL IVP ×2 (07:23→07:27)
--- NOTE | 2023-02-20 09:32 | PC.CHAP ---
Pastoral Care Encounter/Spiritual Assessment Type of Contact [] Declined closing machine operator visit [] Patient/Family/Request visit [] Outpatient visit [] Follow-up visit [] Physician referral [] Code/Alert [x] Routine visit [] Staff referral [] Actively dying [] Patient sleeping [] Family support [] [] Out of room [] Palliative care [] [] Receiving care in room [] Pre-surgical visit [] Trauma [] Long length of stay [] ICU visit [] Other: Relational/Emotional Strength [x] Patient feels connected with others/family/visitors/staff [] Distress [] Loneliness/isolation [] Abandonment Spirituality of Patient [x] Person of Joanne [] Attends Yarsanism of their Joanne [x] Believes in Prayer [] Reads Bible or Christianity materials [] There are Spiritual issues to be addressed Investor Relations Analyst Interventions [x] Prayer [] Active listening [] Non-anxious presence [x] Spiritual/emotional support [] Crisis/trauma care [] Spiritual counseling [] Bereavement support [] Provided bereavement packet [] Provided Bible/devotional materials [] Provided toy/stuffed animal, coloring book to patient or family member [] Provided Communion [] Anointing/[place] [] Salvation [x] Completed spiritual assessment [] Other: Impact on Illness or Injury [] Angry [] Fearful [] Anxious [] Often cries [] Exhaustion [] Unable to work [] Unable to attend sabianist [] Unable to walk/stand [] Unable to read [] Unable to drive [] Unable to eat/drink [] Unable to sleep [] Unable to be with family [] Patient intubated [] Other: Summary Time spent with patient 5 min
--- NOTE | 2023-02-20 09:49 | P.PN_ITS ---
Subjective Subjective: The patient is feeling okay. She still has some shortness of breath with activities. No chest pain or palpitations. No dizziness or syncopal episodes. She had a Myocardial perfusion imaging today. She was found to have significant areas of reversible defects, involving the anterior and anterolateral wall regions, suggesting ischemia in the distribution of the left and descending artery/circumflex artery. Medications: Medication Review Details: Current Medications Acetaminophen (Acetaminophen 325 Mg Tablet) 650 mg PO Q6H PRN PRN Reason: Mild/Mod Pain Or Temp >/= 101 Last Admin: 02/19/23 19:32 Dose: 650 mg Aminophylline (Aminophylline 25 Mg/Ml Sdv 10 Ml) 25 mg IVP Q2M PRN PRN Reason: see dose instructions Stop: 02/21/23 06:16 Last Admin: 02/20/23 07:27 Dose: 25 mg Aspirin (Aspirin 81 Mg Chew Tablet) 81 mg PO DAILY [place] Bisacodyl (Bisacodyl 5 Mg Tablet) 10 mg PO DAILY PRN; Protocol PRN Reason: Constipation (see protocol) Calcium Carbonate (Calcium Carbonate 500 Mg Chew Tablet) 1,000 mg PO Q4H PRN PRN Reason: DYSPEPSI Clopidogrel Bisulfate (Clopidogrel 75 Mg Tablet) 75 mg PO DAILY [facility] Dextrose (Dextrose 50% Syringe 50 Ml) 50 ml IVP PRN PRN; Protocol PRN Reason: hypoglycemia protocol Dextrose (Dextrose 50% Syringe 50 Ml) 25 ml IVP ONCE PRN; Protocol PRN Reason: hypoglycemia protocol Docusate Sodium (Docusate Sodium 100 Mg Capsule) 100 mg PO BID [facility] Last Admin: 02/19/23 17:54 Dose: Not Given Enoxaparin Sodium (Enoxaparin 40 Mg/0.4 Ml Syringe) 40 mg SUBCUT Q24H [facility] Last Admin: 02/19/23 16:34 Dose: 40 mg Glucagon (Glucagon 1 Mg/Ml Inj 1 Ml) 1 mg IM ONCE PRN; Protocol PRN Reason: Adult Acute Hypoglycemia Prot. Dextrose (D5w) 500 mls @ 100 mls/hr IV ONCE PRN; Protocol PRN Reason: Adult Acute Hypoglycemia Prot Insulin Human Lispro (Insulin Lispro 100 Unit/1 Ml) 0 unit SUBCUT TIDWM [facility]; Protocol Last Admin: 02/19/23 17:06 Dose: Not Given Insulin Human Lispro (Insulin Lispro 100 Unit/1 Ml) 0 unit SUBCUT BEDTIME [facility]; Protocol Last Admin: 02/19/23 21:34 Dose: Not Given Levothyroxine Sodium (Levothyroxine 75 Mcg Tablet) 75 mcg PO DAILY [facility] Lisinopril (Lisinopril 10 Mg Tablet) 10 mg PO DAILY [facility] Magnesium Lactate (Magnesium Lactate 84 Mg Tablet) 84 mg PO DAILY [facility] Metoprolol Tartrate (Metoprolol Tartrate 25 Mg Tablet) 12.5 mg PO BID@0900,2100 [facility] Last Admin: 02/19/23 21:30 Dose: 12.5 mg Niacin (Niacin Er (24 Hr) 500 Mg Capsule) 500 mg PO DAILY [facility] Nitroglycerin (Nitroglycerin 0.4 Mg Sublingual Tablet) 0.4 mg SUBLINGUAL Q5M PRN PRN Reason: CHEST PAIN Nitroglycerin (Nitroglycerin 1 Gm/Inch Oint Pkt) 0.5 inch TOPICAL Q6H [facility] Last Admin: 02/20/23 05:44 Dose: 0.5 inch Nitroglycerin (Nitroglycerin 0.4 Mg Sublingual Tablet) 0.4 mg SUBLINGUAL Q5M PRN PRN Reason: CHEST PAIN Stop: 02/21/23 06:16 Ondansetron HCl (Ondansetron 2 Mg/Ml Sdv 2 Ml) 4 mg IVP Q8H PRN PRN Reason: vomiting, or N/V if npo Ondansetron HCl (Ondansetron 2 Mg/Ml Sdv 2 Ml) 4 mg IVP Q2M PRN PRN Reason: NAUSEA Pantoprazole Sodium (Pantoprazole Dr 40 Mg Tablet) 40 mg PO DAILY [facility] Vitals/I&O/Wt Last Vital Signs Temp 98.4 F 02/20/23 05:00 Pulse 59 L 02/20/23 07:34 Resp 18 02/20/23 05:00 BP 107/57 02/20/23 07:34 Pulse Ox 100 02/20/23 05:00 O2 Del Method Room Air 02/19/23 15:27 02/19/23 02/20/23 02/20/23 22:59 06:59 14:59 Intake Total 240 / 240 240 / 480 Balance 240 / 240 240 / 480 Weight last 48 hrs Weight 150 lb Physical Exam Narrative: GENERAL: The patient is alert and oriented times three. Not in any acute dist ress. HEENT: No significant pallor, icterus or lymphadenopathy.Oral cavity: There are no mucous membrane lesions. NECK: Trachea appears to be central. No masses noted. No JVD or thyromegaly appreciated. RESPIRATORY: Chest is symmetrical. No intercostals muscle retraction or any accessory muscle activation. There is no chest wall tenderness. Breath sounds are heard bilaterally. No rales or rhonchi heard. No evidence of any consolidation. BREASTS: Deferred. HEART: The heart sounds are normal. No S3 or S4. No significant murmurs. No pericardial rub ABDOMEN: No vessel pulsations or distention. No tenderness. No organomegaly appreciated. Bowel sounds are normally heard. : Deferred. RECTAL: Deferred. LYMPHATIC: No lymphadenopathy noted in the neck. EXTREMITIES: No edema or cyanosis. No clubbing. MUSCULOSKELETAL: No acute joint deformities or swelling SKIN: There are no significant rashes or ecchymosis NEUROPSYCHIATRIC: The patient is alert and oriented x3. Appears to be in a good mood. No tremors or rigidity noted. Data 02/20/23 04:42 02/20/23 04:42 Other Labs: Laboratory Last Values WBC 8.61 10^3/uL (3.29-11.43) 02/20/23 04:42 RBC 4.41 10^6/uL (3.85-5.65) 02/20/23 04:42 Hgb 13.00 g/dL (11.27-16.99) 02/20/23 04:42 Hct 39.6 % (36-47) 02/20/23 04:42 MCV 89.8 fl (85-98) 02/20/23 04:42 MCH 29.5 pg (27-33) 02/20/23 04:42 MCHC 32.8 g/dL (30-55) 02/20/23 04:42 RDW 13.0 % (12.1-15.1) 02/20/23 04:42 Plt Count 332 10^3/cmm (157-399) 02/20/23 04:42 MPV 9.3 fL (7.4-10.4) 02/20/23 04:42 Neut % (Auto) 42.0 % 02/20/23 04:42 Lymph % (Auto) 43.9 % 02/20/23 04:42 [place] % (Auto) 10.5 % 02/20/23 04:42 Eos % (Auto) 2.3 % 02/20/23 04:42 Baso % (Auto) 1.0 % 02/20/23 04:42 Neut # (Auto) 3.61 10^3/uL (1.8-7.7) 02/20/23 04:42 Lymph # (Auto) 3.8 10^3/uL (0.8-4.8) 02/20/23 04:42 [place] # (Auto) 0.9 10^3/uL (0.2-0.9) 02/20/23 04:42 Eos # (Auto) 0.2 10^3/uL (0.0-0.8) 02/20/23 04:42 Baso # (Auto) 0.1 10^3/uL (0.0-0.1) 02/20/23 04:42 Nucleated RBC % (auto) 0 % 02/20/23 04:42 Nucleated RBCs # 0.0 /100WBC 02/20/23 04:42 D-Dimer 0.64 ug/mLFEU (0-0.59) H 02/19/23 11:59 Sodium 131 mmol/L (136-145) L 02/20/23 04:42 Potassium 4.5 mmol/L (3.5-5.1) 02/20/23 04:42 Chloride 96 mmol/L (98-107) L 02/20/23 04:42 Carbon Dioxide 28 mmol/L (22-29) 02/20/23 04:42 Anion Gap 11.5 (5-19) 02/20/23 04:42 BUN 15 mg/dL (8-23) 02/20/23 04:42 Creatinine 0.8 mg/dL (0.5-0.9) 02/20/23 04:42 GFR Calculation Not Reportable 02/20/23 04:42 Glucose 145 mg/dL (65-115) H 02/20/23 04:42 POC Glucose 124 mg/dL (70-110) H 02/19/23 21:32 Estimat Average Glucose 154 02/20/23 04:42 Hemoglobin A1c 7.0 % (4.0-6.0) H 02/20/23 04:42 Calculated Osmolality 275 mOsm/kg (285-295) L 02/20/23 04:42 Calcium 9.3 mg/dL (8.5-10.5) 02/20/23 04:42 Phosphorus 3.8 mg/dL (2.5-4.5) 02/20/23 04:42 Magnesium 1.6 mg/dL (1.7-2.3) L 02/20/23 04:42 Total Bilirubin 0.3 mg/dL (0.15-1.2) 02/19/23 11:59 AST 16 U/L (0-32) 02/19/23 11:59 ALT 16 U/L (0-33) 02/19/23 11:59 Alkaline Phosphatase 91 U/L (35-105) 02/19/23 11:59 Troponin T Baseline 10 ng/L (0-10) 02/19/23 11:59 Troponin T 120 Minute 9.64 ng/L (0-10) 02/19/23 14:52 Delta Troponin T -0.36 ABS# (0-10) L 02/19/23 14:52 Troponin T Hi Sens 6Hr 8.36 ng/L (0-10) 02/19/23 19:35 Troponin T Hi Sens 6Hr Delta -1.64 ng/L (0-12) L 02/19/23 19:35 NT-Pro-B Natriuret Pep 148 pg/mL (0-125) H 02/19/23 11:59 Total Protein 7.3 g/dL (6.6-8.7) 02/19/23 11:59 Albumin 4.6 g/dL (3.5-5.2) 02/19/23 11:59 Globulin 2.7 g/dL (1.3-4.6) 02/19/23 11:59 Triglycerides 139 mg/dL (0-150) 02/20/23 04:42 Cholesterol 232 mg/dL (0-200) H 02/20/23 04:42 LDL Cholesterol, Calc 144 mg/dL (50-129) H 02/20/23 04:42 HDL Cholesterol 60 mg/dL (60-100) 02/20/23 04:42 LDL/HDL Ratio 2.40 RATIO (0.00-3.22) 02/20/23 04:42 Cholesterol/HDL Ratio 3.87 mg/dL (0.0-4.40) 02/20/23 04:42 TSH 0.71 uIU/mL (0.27-4.20) 02/20/23 04:42 Urine Color Yellow (Yellow) 02/19/23 11:31 Urine Appearance Clear (CLEAR) 02/19/23 11:31 Urine pH 6 (5-7) 02/19/23 11:31 Ur Specific [place] 1.010 (1.005-1.030) 02/19/23 11:31 Urine Protein Neg (Negative) 02/19/23 11:31 Urine Glucose (UA) Norm (Normal) 02/19/23 11:31 Urine Ketones Negative (Negative) 02/19/23 11:31 Urine Blood Neg (Negative) 02/19/23 11:31 Urine Nitrate Negative (Negative) 02/19/23 11:31 Urine Bilirubin Neg (Negative) 02/19/23 11:31 Urine Urobilinogen Norm mg/dL (Negative) 02/19/23 11:31 Ur Leukocyte Esterase Negative (Negative) 02/19/23 11:31 A&P Assessment and plan (1) Abnormal myocardial perfusion study: I discussed with the patient in detail the implication of the test findings. In order to further evaluate the coronary status, she requires a cardiac catheterization. Patient is wanting to go ahead with the procedure. 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 Dr. Grajeda will take over further management of this patient. (2) Tachyarrhythmia: So far there is no significant tachyarrhythmias on the telemetry. (3) Dyspnea on exertion: In view of the abnormal Myocardial perfusion imaging, most likely this is related to underlying coronary ischemia. (4) Hypertension: The blood pressure is fairly under control at this time. May continue on the current medications. (5) Hyperlipidemia: May continue on the statin. (6) Type 2 diabetes mellitus: The blood sugar seems to be fairly under control. May continue on the current medications. (7) Hypothyroidism: Clinically euthyroid. May continue on the current treatment. (8) Atherosclerosis of coronary artery: Patient is angiogram findings from November of last year is as mentioned above. Possibility of restenosis of the intermediate artery is a consideration. Plan Based on the angiogram findings, further management decisions will be made. Blood Jose Maria is taking over further cardiac management of this patient Attestations Medical Necessity Statement*: Patient requires continued hospital stay for close monitoring and further manag ement Coding Level of Care Code 63262 Diagnoses Abnormal myocardial perfusion study R94.39 Tachyarrhythmia R00.0 Dyspnea on exertion R06.09 Hypertension I10 Hyperlipidemia E78.5 Type 2 diabetes mellitus E11.9 Hypothyroidism E03.9 Atherosclerosis of coronary artery I25.10
--- NOTE | 2023-02-20 10:04 | XACV_ITS ---
Exam Room: 2 Ht: 150 cm Wt: 68 kg BSA: 1.71 m2 Gender: Female : 1950 Exam Priority: Routine Procedure(s): Procedure Description: Diagnostic procedure Procedure Description: Left Heart Catheterization Procedure Description: Coronary Angiography Diagnostic Cath Status: Elective Diagnostic Findings * INDICATION: Shortness of breath/ abnormal stress test. * Left Main has no significant disease. * Left Anterior Descending has significant diffuse disease from mid to distal vessel. Small caliber vessel. * Circumflex has no significant disease. * Proximal Right Coronary Artery: moderate 50% stenosis, ALEXIS: 3 flow. * Coronary angiography shows right dominance. Interventional Findings * PROCEDURE DETAIL: We engaged RCA with JR4 guide catheter. IV heparin was administered to maintain anticoagulation. After normalization, IFR wire was advanced to distal vessel. iFR value of 1.0 was obtained. As this was nonischemic, medical therapy was decided and pressure wire and guide catheter were removed. Patient left the [place] [facility] in a stable condition. Conclusions 1. Moderate RCA disease s/p iFR that is negative. Medical therapy. 2. Significant diffuse mid to apical LAD disease. Medical therapy. Recommendations * Aggressive risk factor modification. * Outpatient cardiology follow up in 4 weeks. Interventional RX Recommendation: medical therapy and/or counseling Diagnostic RX Recommendation: medical therapy and/or counseling Pressures Phase:Rest AO : 117 / 114 ( 106 ) @ 11:32:00 AM 113 / 94 ( 103 ) @ 11:33:00 AM 143 / 64 ( 94 ) @ 11:39:00 AM LV : 162 / -12 / 11 @ 11:39:00 AM 156 / -12 / 10 @ 11:39:00 AM Valves Phase:DefaultPhase AV : 14.0 @ 10:58:00 AM 14.0 @ 10:58:00 AM AV Mean Gradient: 17.0 @ 10:58:00 AM 17.0 @ 10:58:00 AM Clinical Evaluation EBL: 5mL-10mL Procedural Details Procedure Consent Obtained. Admit Source: In Patient. Pre-Procedure Time Out. Identified patient by full name and date of as verbalized by the patient/guarantor. Does the consent match the physician's order: Yes. Accurate & Complete Informed Consent: Yes. Inpatient/Outpatient History & Physical on Chart: Yes. If H&P is completed, is and addenduem needed: No; If yes, is the addendum complete: N/A. Visualize and Verify Site with Patient/Guarantor: N/A. Relevant Radiology Images available: Yes. The risks, benefits, and alternatives of sedation and/or procedure were discussed by physician. The patient agrees to continue. Procedure started. [facility] Clinical Fraility Score: 3: Managing Well. [place] [facility] Indications: abnormal stress test. Chest Pain Symptom Assessment: Atypical Angina. Correct patient, site and procedure confirmed by cath team. PERRLA. Strong, equal hand pumper gager bilaterally. Lungs clear x 5 lobes. IV Site on Arrival: 20 gauge in the right anticubital. IV Fluids: 0.9% NaCl at KVO. 0 mL infused prior to label operator. Pre Procedural Pulses: bilateral radial was 2+. Pre Procedural Pulses: bilateral posterior tibial was 1+. Pre Procedural Pulses: bilateral dorsalis pedis was 1+. Oxygen started at 2liters/min via nasal canula. right groin was prepped with chloroprep then draped in the usual sterile fashion. right radial was prepped with chloroprep then draped in the usual sterile fashion. Physician notified. Baseline sample Acquired. HR: 97 BPM. Physician arrived. Physician scrubbed in. Immediate Pre-Procedure Time Out. Correct Patient: Yes; Correct Procedure: Yes; Correct Site: Yes; Correct Patient Position: Yes; Correct Supplies: Yes; Dried Flammable Prep: Yes; Blood Products Available: N/A;. Lidocaine 1% infiltrated to the right radial. Arterial access obtained. A 5 syrian TIG catheter in over wire. Multiple views taken of left coronary artery. Catheter redirected to the RCA. Catheter removed over the exchange wire. A 5 syrian JR4 catheter in over wire. Multiple views taken of right coronary artery. EDP Sample taken: LV 162/-13,11; HR: 87 BPM; SpO2: 96%. Pullback taken: LV 156/-13,10; AO 143/64(94); Mean: 17mmHg, Peak to Peak: 14mmHg, SEP: 11sec/min; HR: 87 BPM; SpO2: 93%. 6 syrian JR 4 guide catheter was inserted over the wire. IFR guidewire was advanced through the guide catheter to lesion in the prox RCA. IFR spot 1.01. IFR pullback 1.04. Guide catheter out. Wire out. Post Procedure: Pulses reassessed and unchanged. PERRLA. Strong, equal hand pumper gager bilaterally. No VTE prophylaxis required. Medication's Wasted: Lidocaine 1% = 2 mL. Medication's Wasted: Nitro = 49.8 mg. Medication's Wasted: Heparin = 4000 units. Medication's Wasted: Other = versed 1 mg. Medication's Wasted: Other = fentanyl 50 mcg. Total IV fluids: 35 mL. A TR Band was successful obtaining hemostatsis at the Right Radial artery insertion site. Post-op diagnosis: difused LAD disease. Estimated blood loss: 5mL-10mL. Complications: none. Responsiveness - Normal response to verbal stimuli; alert and oriented, PERRLA. Airway - Unaffected, no intervention required; spontaneous ventilation. Circulation: W/N/L, pulses unchanged. Nausea/Vomiting: No. Procedure completed. Patient transferred by wheelchair to CPRU. Vital chart was stopped. Access Site Site: Right Radial artery Sheath Size: 6 Fr Hemostasis Method: TR Band Hemostasis Success: Successful Procedure Medications Start: 10:03 AM Stop: 10:03 AM Medication: Nitrogylcerin Amount: 200 mcg Route: I.A. Start: 10:31 AM Stop: 10:31 AM Medication: Versed Amount: 1 mg Route: I.V. Start: 10:31 AM Stop: 10:31 AM Medication: Fentanyl Amount: 50 mcg Route: I.V. Start: 10:31 AM Stop: 10:31 AM Medication: Heparin Amount: 5000 units Route: I.V. Start: 10:43 AM Stop: 10:43 AM Medication: Heparin Amount: 2000 units Route: I.V. I, the attending physician, have reviewed and verified all procedure medications. Yes, all medications given per verbal order History/Risk Factors Hypertension: Yes Dyslipidemia: Yes Peripheral Arterial Disease (PAD): No Myocardial Infarction (PA): Yes Obesity: No Prior Interventions PCI: No CABG: No Valve Surgery: No Report Signatures Finalized by Marko Grajeda MD on 02/20/2023 11:11 AM
--- NOTE | 2023-02-20 10:10 | W.PM.OPSUD ---
Surgery/Procedure H&P Update DATE OF PROCEDURE: February 20, 2023 DATE H&P PERFORMED: 02/19/23 H&P UPDATE INFORMATION: I have reviewed H&P completed within last 30 days, I have examined patient prior to procedure and Changes to prior documentation as noted here CHANGES TO PREVIOUS DOCUMENTATION: Patient's stress test is significantly abnormal. Plan for left heart cath with possible percutaneous coronary intervention PREOP DIAGNOSIS: Abnormal stress test/shortness of breath PRIMARY INDICATION FOR PROCEDURE: Abnormal stress test/shortness of breath PLANNED PROCEDURE: Left heart cath with possible percutaneous coronary intervention PATIENT REASSESSED PRIOR TO SEDATION, WITH NO CHANGE NOTED: Yes PHYSICAL EXAM: alert, oriented x 3, clear to auscultation bilaterally and regular rate & rhythm AIRWAY EVAL/ANESTHESIA PLAN: normal airway, ASA III, Local Anesthesia, Risks, benefits & alternatives of sedation and/or procedure discussed and Patient agrees to continue as planned ADDITIONAL INFORMATION: Moderate sedation
--- NOTE | 2023-02-20 10:20 | PC.NURSE ---
Unable to administer morning medications as patient was off unit getting a stress test. Upon coming up to the floor, pt was taken back down to color laboratory technician for angiogram, therefore, this nurse did not do a nursing assessment or any charting as I had not laid eyes on the pt in between the hand off. ems instructor and assistant professor of nursing rounded on pt when she got back to the floor as well as the ONCOLOGY REP as this nurse was in heart to heart and tending to another patient.
--- NOTE | 2023-02-20 10:58 | PM.MISC ---
Miscellaneous Note Purpose of Documentation: Brief procedure note Note: Left main artery: Patient LAD: Diffuse disease from mid to distal vessel. Small caliber vessel. Gives off diagonal artery that is also diffusely disease LCx: No significant disease RCA: Has moderate proximal 50% proximal vessel stenosis. iFR performed but is non-ischemic PLAN: Patient has significant diffuse disease of mid to distal LAD. Small caliber vessel. Medical management RCA iFR is non-ischemic. Aggressive medical management. Patient can be discharged home later today.
--- NOTE | 2023-02-20 11:28 | PC.NURSE ---
1100: Patient transferred to CPRU from label printing machinist post procedure. TR band in place to patients right wrist. Site clean, dry, et intact. Vitals stable. No c/o pain or discomfort. Will continue to monitor.
--- NOTE | 2023-02-20 12:39 | P.DS_ITS ---
Discharge Providers Date of Admission: 02/19/23 13:00 Date of Discharge: February 20, 2023 Attending Provider at Admission: Soo Estrada MD Attending Provider at Discharge: Audi Olson MD Primary Care Provider: Adama Key Diagnoses at Discharge Discharge Diagnosis (1) Abnormal myocardial perfusion study: Status: Acute (2) Tachyarrhythmia: Status: Acute (3) Dyspnea on exertion: Status: Acute (4) Hypertension: Status: Chronic (5) Hyperlipidemia: Status: Chronic (6) Type 2 diabetes mellitus: Status: Chronic (7) Hypothyroidism: Status: Chronic (8) Atherosclerosis of coronary artery: Status: Chronic Reason for Visit Reason for Visit: high heart rate, headache, sob Hospital Course Hospital Course Yesy Flores is a 72 year old female who presented to the emergency room with chief complaint of palpitations and shortness of breath.? She has a history of coronary artery disease having had a ST elevation [place] in November 2021.? Over the past week or so she has not been feeling well.? Symptoms are bit similar to what she experienced prior to her heart attack in 2021.? It all started with her getting overheated 1 day working in her garden during the recent heat wave.? After that she was exhausted.? She began having dyspnea on exertion that has been progressively worsening.? She is also had intermittent episodes of palpitations.? Normally her heart rate is in the 50s to 60s.? She has had at least 2 episodes of heart rate greater than 100 (105-111 at home).? She is on chronic beta-blockade and has not missed any doses.? It is really unusual for her heart rate to get that high.? She had not been checking her blood pressure until today when she found it to be 132/76.? This a little bit higher than her usual.? She denies any chest pains over the past week.? Has not had any nausea or vomiting like she did prior to her STEMI but she just has not felt well.? She has had a headache located primarily on the right side of her head a couple of times.? She has had runny nose which she attributes to allergies; no recent change.? No sore throat or cough.? She occasionally will have some swelling in her legs but nothing really to note recently.? She had had some gallbladder discomfort and diarrhea for a while.? She had a HIDA scan in December of this year that was unremarkable.? She made some dietary adjustments and the symptoms have improved.? No urinary symptoms to speak of.? She has had lots of seed tick bites and chiggers from working in her garden this summer.? She received a steroid shot on February 02 and has been using triamcinolone cream.? In the emergency room today initial vitals showed pulse in the 60s, blood pressure 160s over 80s and oxygen saturation 100%.? Initial twelve-lead EKG showed some inverted T waves compared to prior.? Baseline troponin was 10.? She had a headache upon arrival.? She was given 1 inch of Nitropaste and a full aspirin and currently is feeling better with her symptoms resolved.? At rest no shortness of breath.? Headache resolved.? No current chest pain or palpitations.? Case was discussed with on- call cardiology given concern for anginal equivalent.? She is being admitted to observation status for further evaluation and treatment. Patient was admitted to [facility] for palpitations, shortness of breath, cardiology was consulted, Cardiac echocardiogram ?CONCLUSIONS ?Normal left ventricular size and systolic function, EF 72 %. ?No regional wall motion abnormalities. ?Normal chamber sizes. ?No gross valvular abnormalities noted ?There is no pericardial effusion. ?There are no intracardiac masses. ?Technically somewhat difficult study Cardiac stress test ?IMPRESSIONS ?1.? Myocardial perfusion imaging revealing moderate area of moderately ?decreased tracer uptake involving the anterior, anterolateral, inferolateral ?and LV apex with a Significant reversibility suggesting ischemia in the ?distribution of the left anterior descending and circumflex artery. ?2.? Normal LV ejection fraction of 64% ?3.? LV wall motion analysis revealing mild hypokinesis of the LV apex. ?4.? Normal LV volume ?5.? Elevated transient ischemic dilatation ratio also may suggest endocardial ?ischemia. ?No similar previous studies are available for comparison Patient had coronary angiography Conclusions ? 1. Moderate RCA disease s/p iFR that is negative. Medical therapy. ? 2. Significant diffuse mid to apical LAD disease. Medical therapy. Recommendations ? * Aggressive risk factor modification. ? * Outpatient cardiology follow up in 4 weeks. -Patient was monitored as inpatient, no recurrent episodes of chest pain or shortness of breath -Patient will follow-up with Yue in 2 weeks -If she continues to be symptomatic, we will consider ordering event monitor Physical Exam Const: COMMON NORMALS: no acute distress and patient oriented x3 Resp: COMMON NORMALS: normal respiratory effort, No retractions, No use of accessory muscles and clear to auscultation bilaterally AUSCULTATION: clear to auscultation bilaterally Cardio: COMMON NORMALS: regular rate, regular rhythm, S1 normal heart sound present and S2 normal heart sound present RATE: regular rate RHYTHM: regular rhythm HEART SOUNDS: S1 normal heart sound present and S2 normal heart sound present GI: COMMON NORMALS: Normal to inspection, nondistended, normoactive bowel sounds present and non-tender Extremity: COMMON NORMALS: no pedal edema Neuro: COMMON NORMALS: patient oriented x3 Psych: COMMON NORMALS: mental status grossly normal Discharge Data Studies Completed and Pending Completed Studies During Hospitalization Category Date Time Status [employer] request for service Routine Exams 02/20/23 10:04 Completed Cardiac Stress Test MIBI [Sestamibi Stress Test Request Exams 02/19/23 18:40 Draft ] Routine XR chest 1V portable [id number] Stat Exams 02/19/23 11:30 Completed NM anna perf SPECT r/s* [id number] Routine Nuc Med 02/20/23 18:40 Completed CV. echo limited [id number] Urgent Ultrasound 02/19/23 13:11 Completed Laboratory Results WBC 8.61 10^3/uL (3.29-11.43) 02/20/23 04:42 RBC 4.41 10^6/uL (3.85-5.65) 02/20/23 04:42 Hgb 13.00 g/dL (11.27-16.99) 02/20/23 04:42 Hct 39.6 % (36-47) 02/20/23 04:42 MCV 89.8 fl (85-98) 02/20/23 04:42 MCH 29.5 pg (27-33) 02/20/23 04:42 MCHC 32.8 g/dL (30-55) 02/20/23 04:42 RDW 13.0 % (12.1-15.1) 02/20/23 04:42 Plt Count 332 10^3/cmm (157-399) 02/20/23 04:42 MPV 9.3 fL (7.4-10.4) 02/20/23 04:42 Neut % (Auto) 42.0 % 02/20/23 04:42 Lymph % (Auto) 43.9 % 02/20/23 04:42 [place] % (Auto) 10.5 % 02/20/23 04:42 Eos % (Auto) 2.3 % 02/20/23 04:42 Baso % (Auto) 1.0 % 02/20/23 04:42 Neut # (Auto) 3.61 10^3/uL (1.8-7.7) 02/20/23 04:42 Lymph # (Auto) 3.8 10^3/uL (0.8-4.8) 02/20/23 04:42 [place]iwether # (Auto) 0.9 10^3/uL (0.2-0.9) 02/20/23 04:42 Eos # (Auto) 0.2 10^3/uL (0.0-0.8) 02/20/23 04:42 Baso # (Auto) 0.1 10^3/uL (0.0-0.1) 02/20/23 04:42 Nucleated RBC % (auto) 0 % 02/20/23 04:42 Nucleated RBCs # 0.0 /100WBC 02/20/23 04:42 D-Dimer 0.64 ug/mLFEU (0-0.59) H 02/19/23 11:59 Sodium 131 mmol/L (136-145) L 02/20/23 04:42 Potassium 4.5 mmol/L (3.5-5.1) 02/20/23 04:42 Chloride 96 mmol/L (98-107) L 02/20/23 04:42 Carbon Dioxide 28 mmol/L (22-29) 02/20/23 04:42 Anion Gap 11.5 (5-19) 02/20/23 04:42 BUN 15 mg/dL (8-23) 02/20/23 04:42 Creatinine 0.8 mg/dL (0.5-0.9) 02/20/23 04:42 GFR Calculation Not Reportable 02/20/23 04:42 Glucose 145 mg/dL (65-115) H 02/20/23 04:42 POC Glucose 124 mg/dL (70-110) H 02/19/23 21:32 Estimat Average Glucose 154 02/20/23 04:42 Hemoglobin A1c 7.0 % (4.0-6.0) H 02/20/23 04:42 Calculated Osmolality 275 mOsm/kg (285-295) L 02/20/23 04:42 Calcium 9.3 mg/dL (8.5-10.5) 02/20/23 04:42 Phosphorus 3.8 mg/dL (2.5-4.5) 02/20/23 04:42 Magnesium 1.6 mg/dL (1.7-2.3) L 02/20/23 04:42 Total Bilirubin 0.3 mg/dL (0.15-1.2) 02/19/23 11:59 AST 16 U/L (0-32) 02/19/23 11:59 ALT 16 U/L (0-33) 02/19/23 11:59 Alkaline Phosphatase 91 U/L (35-105) 02/19/23 11:59 Troponin T Baseline 10 ng/L (0-10) 02/19/23 11:59 Troponin T 120 Minute 9.64 ng/L (0-10) 02/19/23 14:52 Delta Troponin T -0.36 ABS# (0-10) L 02/19/23 14:52 Troponin T Hi Sens 6Hr 8.36 ng/L (0-10) 02/19/23 19:35 Troponin T Hi Sens 6Hr Delta -1.64 ng/L (0-12) L 02/19/23 19:35 NT-Pro-B Natriuret Pep 148 pg/mL (0-125) H 02/19/23 11:59 Total Protein 7.3 g/dL (6.6-8.7) 02/19/23 11:59 Albumin 4.6 g/dL (3.5-5.2) 02/19/23 11:59 Globulin 2.7 g/dL (1.3-4.6) 02/19/23 11:59 Triglycerides 139 mg/dL (0-150) 02/20/23 04:42 Cholesterol 232 mg/dL (0-200) H 02/20/23 04:42 LDL Cholesterol, Calc 144 mg/dL (50-129) H 02/20/23 04:42 HDL Cholesterol 60 mg/dL (60-100) 02/20/23 04:42 LDL/HDL Ratio 2.40 RATIO (0.00-3.22) 02/20/23 04:42 Cholesterol/HDL Ratio 3.87 mg/dL (0.0-4.40) 02/20/23 04:42 TSH 0.71 uIU/mL (0.27-4.20) 02/20/23 04:42 Urine Color Yellow (Yellow) 02/19/23 11:31 Urine Appearance Clear (CLEAR) 02/19/23 11:31 Urine pH 6 (5-7) 02/19/23 11:31 Ur Specific [place] 1.010 (1.005-1.030) 02/19/23 11:31 Urine Protein Neg (Negative) 02/19/23 11:31 Urine Glucose (UA) Norm (Normal) 02/19/23 11:31 Urine Ketones Negative (Negative) 02/19/23 11:31 Urine Blood Neg (Negative) 02/19/23 11:31 Urine Nitrate Negative (Negative) 02/19/23 11:31 Urine Bilirubin Neg (Negative) 02/19/23 11:31 Urine Urobilinogen Norm mg/dL (Negative) 02/19/23 11:31 Ur Leukocyte Esterase Negative (Negative) 02/19/23 11:31 Vitals Last Vital Signs Temp 98.4 F 02/20/23 05:00 Pulse 59 L 02/20/23 11:00 Resp 18 02/20/23 11:00 BP 136/71 02/20/23 11:00 Pulse Ox 100 02/20/23 05:00 O2 Del Method Room Air 02/20/23 11:00 Discharge Plan Discharge Patient Disposition: Home Condition: Stable Prescriptions: Continued lisinopril 10 mg tablet 10 mg PO DAILY methocarbamol 500 mg tablet 500 mg PO BID PRN (Reason: Muscle Pain) metformin 1,000 mg tablet 1,000 mg PO BID Hold Instructions: Resume on 12/21/21. glipizide 5 mg tablet 5 mg PO BID aspirin 81 mg tablet,chewable 81 mg PO DAILY coenzyme Q10 [Co Q-10] 50 mg capsule See Rx Instructions .ROUTE .COMPLEX Rx Instructions: 50 mg orally alternating days with krill capsule PRN; [id number] [krill oil] 1,168-218-95-80 mg capsule See Rx Instructions .ROUTE .COMPLEX Rx Instructions: 1 cap orally alternating with co-q-10 PRN; levothyroxine 75 mcg tablet 75 mcg PO DAILY clopidogrel 75 mg Tablet 75 mg PO DAILY Qty: 90 3RF NAC 600 mg capsule 600 mg PO QPM Vitamin B-12 50 mcg tablet 50 mcg PO DAILY niacin 500 mg tablet 500 mg PO DAILY cholecalciferol (vitamin D3) [Vitamin D3] 25 mcg (1,000 unit) Tablet 25 mcg PO DAILY Ocuvite Adult 50 Plus 250-5-1 mg Capsule 1 cap PO DAILY Flonase Allergy Relief 50 mcg/actuation spray,suspension 1 spray INTRANASAL DAILY PRN (Reason: Allergy Symptoms) Rx Instructions: administer into each nostril zinc acetate 50 mg (zinc) Capsule 50 mg PO DAILY magnesium 200 mg Tablet 200 mg PO DAILY B Complex Capsule 1 cap PO DAILY metoprolol tartrate 25 mg tablet 12.5 mg PO BID@0900,2100 Qty: 90 3RF Discharge Orders: Discharge Order (Routine); Ordered 02/20/23 Ordered By: Audi Olson Referrals: Adama Key [Primary Care Provider] - Discharge Diet: Cardiac Discharge Activity: Resume usual activity Patient Instructions: Hypertension, Low-Sodium Diet (ED), Tachycardia (GEN), Opioid Safety Discharge Attestations Time Spent in Discharge Care*: greater than 30 min Quality Metrics Clinical Quality Measures [ No reported AMI, CVA or VTE this stay] Coding Level of Care Code 18378 Total time (in minutes) for Discharge: 45 Diagnoses Abnormal myocardial perfusion study R94.39 Tachyarrhythmia R00.0 Dyspnea on exertion R06.09 Hypertension I10 Hyperlipidemia E78.5 Type 2 diabetes mellitus E11.9 Hypothyroidism E03.9 Atherosclerosis of coronary artery I25.10
[2023-02-20 12:41] LABS: Glucose Point of Care 158 mg/dL (70-110)
--- NOTE | 2023-02-20 12:44 | PC.NURSE ---
1215: Transfer orders received. TR band in place to patients right wrist. Site clean, dry, et intact. Vitals stable. No c/o pain or discomfort. Patient transferred to [facility] from [facility]. All belongings sent with patient.
[2023-02-20] MEDS: insulin lispro 100 unit/1 mL SUBCUT (13:11)
[2023-02-20] MEDS: magnesium lactate 84 mg Tablet PO (13:12)
[2023-02-20] MEDS: clopidogrel 75 mg Tablet PO (13:13)
[2023-02-20] MEDS: aspirin 81 mg Chew Tablet PO (13:13)
[2023-02-20] MEDS: lisinopril 10 mg Tablet PO (13:17)
[2023-02-20] MEDS: levothyroxine 75 mcg Tablet PO (13:17)
--- NOTE | 2023-02-20 14:33 | PC.NURSE ---
tr band off no hematoma, bleeding or swelling. radial pulse is palpable+3.
--- NOTE | 2023-02-20 18:40 | NMCV_ITS ---
NM anna perf SPECT r/s* [id number] Yesy Flores Age: 72 Gender: F : 1950 Exam Date: 02/20/2023 06:37 Ordering Phys: Sunil Oliva MD ([email or web address]) Technologist: GENTRY Ledezma Exam Location: [facility] Indications: CHEST PAIN STRESS TEST [facility] IMAGE PROTOCOL Rest/Stress 1 Lexiscan Day Radiopharmaceutical Dose (mCi) Administration Site Administered by Rest: Tc-99m 10.6 IV GENTRY Fuentes Sestamibi Stress:Tc-99m 32.5 IV GENTRY Fuentes Sestamibi Rest: 20-Feb-2023 60 Discovery 630 Stress: 20-Feb-2023 30 Discovery 630 0.4mg Lexiscan. Images obtained in supine and prone position. SPECT RESULTS Technical Quality: Excellent Raw Data Analysis: Normal Image Corrections: No attenuation or motion correction applied Summed Stress Score: 17 Summed Rest Score: 10 Summed Difference Score: 7 PERFUSION FINDINGS Moderate area of moderate to severely decreased tracer uptake was noted in the mid and apical anterior, mid anterolateral, mid inferolateral, apical inferior, apical lateral and LV apex. Significant reversibility was noted in these regions with a summed difference score of 7. Based on the polar plot the ischemic burden was 32% of the total myocardium FUNCTIONAL RESULTS (calculated via Gated SPECT) Stress Image LV EF (%): 64 Stress EDV (mL):56 TID: 1.31 Stress ESV (mL):20 FUNCTIONAL FINDINGS: Segmental wall motion analysis revealed mild hypokinesia of the LV apex. The transient ischemic dilatation ratio was 1.31 IMPRESSIONS 1. Myocardial perfusion imaging revealing moderate area of moderately decreased tracer uptake involving the anterior, anterolateral, inferolateral and LV apex with a Significant reversibility suggesting ischemia in the distribution of the left anterior descending and circumflex artery. 2. Normal LV ejection fraction of 64% 3. LV wall motion analysis revealing mild hypokinesis of the LV apex. 4. Normal LV volume 5. Elevated transient ischemic dilatation ratio also may suggest endocardial ischemia. No similar previous studies are available for comparison Dr Sunil Oliva MD [facility] (Electronically Signed) Final Date: 20 February 2023 09:29 S
== END 2023-02-20 16:52 | disposition home or self-care (01) ==
LOC: ER 12:53 → MEDSURG 14:34 → CSU 02-20 12:18
PROVIDERS: Internal Medicine; Admitting Provider Hospitalist; Emergency Provider Emergency Medicine; PCP Family Medicine; Visit Provider Family Medicine
DX: I25.10 Atherosclerotic heart disease of native coronary artery without angina pectoris (principal); R94.39 Abnormal result of other cardiovascular function study; R00.0 Tachycardia, unspecified; R06.09 Other forms of dyspnea; I10 Essential (primary) hypertension; E78.5 Hyperlipidemia, unspecified; E11.9 Type 2 diabetes mellitus without complications; E03.9 Hypothyroidism, unspecified; I25.2 Old myocardial infarction; Z79.84 Long term (current) use of oral hypoglycemic drugs; Z79.82 Long term (current) use of aspirin; Z98.61 Coronary angioplasty status
CPT/HCPCS: 36415; 36416; 71045; 78452; 80048; 80053; 80061; 81003; 82962; 83036; 83735; 83880; 84100; 84443; 84484; 85025; 85378; 93005; 93017; 93308; 93458; 93571; 96367; 96372; 96375; 99152; 99153; 99285; A9500; C1769; C1887; C1894; G0378; J0280; J1644; J1650; J1815; J2250; J2785; J3010; J3490; J7030; Q9967

== ENCOUNTER → 2023-03-14 13:39 | Outpatient (BNVA) | payer MEDICARE, SELFPAY | PROVIDERS: PCP Family Medicine; Visit Provider Nurse Practitioner Family | DX: I25.10 Atherosclerotic heart disease of native coronary artery without angina pectoris (principal); I10 Essential (primary) hypertension | CPT/HCPCS: 36415; 80048; 99214 ==

== ENCOUNTER 2023-07-05 10:26 | Outpatient (CLI) | payer MEDICARE, SELFPAY ==
--- NOTE | 2023-07-05 10:30 | MM_ITS ---
WS: [id number] BILATERAL SCREENING DIGITAL TOMOSYNTHESIS MAMMOGRAM WITH CAD HISTORY: SCREENING COMPARISON: 06/05/2022 and 05/12/2021 Bilateral CC and MLO views with tomosynthesis and synthetic mammography submitted. Computer aided det ection analyzed. Breast composition: There are scattered areas of fibroglandular density. No suspicious masses, microc alcifications or architectural distortion. Benign calcifications in each breast. IMPRESSION: MM/[place] [id number] BI-RADS: 2-Benign FOLLOW UP: 1 Year Follow-up
== END 2023-07-05 10:27 | disposition home or self-care (01) ==
LOC: MOBLMAM 10:31
PROVIDERS: PCP Family Medicine; Visit Provider Family Medicine
DX: Z12.31 Encounter for screening mammogram for malignant neoplasm of breast (principal)
CPT/HCPCS: 77063; 77067

== ENCOUNTER → 2023-07-27 10:38 | Outpatient (BNVA) | payer MEDICARE, SELFPAY | PROVIDERS: PCP Family Medicine; Visit Provider Nurse Practitioner Family | DX: I10 Essential (primary) hypertension (principal); I87.2 Venous insufficiency (chronic) (peripheral); I25.10 Atherosclerotic heart disease of native coronary artery without angina pectoris | CPT/HCPCS: 99214 ==

== ENCOUNTER 2023-08-21 12:35 | Outpatient (CLI) | payer MEDICARE, SELFPAY ==
--- NOTE | 2023-08-21 12:45 | USCV_ITS ---
Yesy Flores Age: 72 Gender: F : 1950 Exam Date: 08/21/2023 12:48 Ordering Phys: Yue Pa Technologist: Alison Shahid Exam Location: [facility] [place] Indication: HISTORY: PROCEDURES: FINDINGS: BOTH SSVS ARE EITHER CLOTTED OR LIGATED FROM PAST ONLY REFLUX I SAW WAS AT RT GSV DISTAL GSV AND BELOW KNEE The small saphenous veins are not visualized on either side speech CONCLUSIONS 1. The small saphenous veins are not visualized bilaterally 2. Significant venous reflux of greater than 500 ms at the distal and below-knee great saphenous veins on the right side. These veins venous segments measured 1.3 and 0.3 cm in diameter and at a depth of more than 1 cm deep from the surface 3. No severe venous reflux on the left. 5. No evidence of DVT. Dr Sunil Oliva MD [facility] (Electronically Signed) Final Date: 22 August 2023 11:40 S
== END 2023-08-21 12:36 | disposition home or self-care (01) ==
LOC: RAD 12:36
PROVIDERS: PCP Family Medicine; Visit Provider Nurse Practitioner Family
DX: I87.2 Venous insufficiency (chronic) (peripheral) (principal)
CPT/HCPCS: 93970

== ENCOUNTER → 2023-09-03 10:49 | Outpatient (BNVA) | payer MEDICARE, SELFPAY | PROVIDERS: PCP Family Medicine; Visit Provider Thoracic Surgery (Cardiothoracic Vascular Surgery) | DX: I87.2 Venous insufficiency (chronic) (peripheral) (principal) | CPT/HCPCS: 99202 ==

== ENCOUNTER → 2023-11-15 13:39 | Outpatient (BNVA) | payer MEDICARE, SELFPAY | PROVIDERS: PCP Family Medicine; Referring Provider Nurse Practitioner Family; Visit Provider Nurse Practitioner Family | DX: L72.0 Epidermal cyst (principal); L57.0 Actinic keratosis; L82.0 Inflamed seborrheic keratosis; L81.4 Other melanin hyperpigmentation | CPT/HCPCS: 10060; 17000; 17110; 99202 ==

== ENCOUNTER → 2023-12-05 13:19 | Outpatient (BNVA) | payer MEDICARE, SELFPAY | PROVIDERS: PCP Family Medicine; Visit Provider Dermatology | DX: D48.5 Neoplasm of uncertain behavior of skin (principal); L72.0 Epidermal cyst | CPT/HCPCS: 11402; 12032; 13101; 99212 ==

== ENCOUNTER → 2024-01-15 15:25 | Outpatient (BNVA) | payer MEDICARE, SELFPAY | PROVIDERS: PCP Family Medicine; Visit Provider Internal Medicine | DX: I25.10 Atherosclerotic heart disease of native coronary artery without angina pectoris (principal); I10 Essential (primary) hypertension; E78.5 Hyperlipidemia, unspecified; E11.9 Type 2 diabetes mellitus without complications; Z79.84 Long term (current) use of oral hypoglycemic drugs | CPT/HCPCS: 99214 ==

== ENCOUNTER → 2024-03-04 13:34 | Outpatient (BNVA) | payer MEDICARE, SELFPAY | PROVIDERS: PCP Family Medicine; Visit Provider Dermatology | DX: L57.0 Actinic keratosis (principal); L73.8 Other specified follicular disorders; L72.0 Epidermal cyst; D23.39 Other benign neoplasm of skin of other parts of face; L82.1 Other seborrheic keratosis; S30.860A Insect bite (nonvenomous) of lower back and pelvis, initial encounter; S20.462A Insect bite (nonvenomous) of left back wall of thorax, initial encounter; L82.0 Inflamed seborrheic keratosis; X58.XXXA Exposure to other specified factors, initial encounter | CPT/HCPCS: 17110; 99213 ==

== ENCOUNTER 2024-07-10 13:29 | Outpatient (CLI) | payer MEDICARE, SELFPAY ==
--- NOTE | 2024-07-10 13:35 | MM_ITS ---
WS: [id number] BILATERAL SCREENING DIGITAL TOMOSYNTHESIS MAMMOGRAM WITH CAD HISTORY: SCREENING COMPARISON: 06/05/2022, 07/05/2023, 04/30/2020 Bilateral CC and MLO views with tomosynthesis and synthetic mammography submitted. Computer aided det ection analyzed. Breast composition: The breasts are heterogeneously dense, which may obscure small masses. No suspici ous masses, microcalcifications or architectural distortion. Numerous scattered benign calcifications within each breast. Asymmetries in the upper outer quadrants are stable. MM/MM scr tomosynthesis [id number] IMPRESSION: BI-RADS: 2 - Benign FOLLOW UP: 1 Year Follow-up
== END 2024-07-10 13:30 | disposition home or self-care (01) ==
LOC: RAD 13:30
PROVIDERS: PCP Family Medicine; Visit Provider Family Medicine
DX: Z12.31 Encounter for screening mammogram for malignant neoplasm of breast (principal); R92.333 Mammographic heterogeneous density, bilateral breasts; R92.1 Mammographic calcification found on diagnostic imaging of breast; N64.89 Other specified disorders of breast
CPT/HCPCS: 77063; 77067

== ENCOUNTER → 2024-07-16 15:02 | Outpatient (BNVA) | payer MEDICARE, SELFPAY | PROVIDERS: PCP Family Medicine; Visit Provider Internal Medicine | DX: I25.10 Atherosclerotic heart disease of native coronary artery without angina pectoris (principal); E78.5 Hyperlipidemia, unspecified; I10 Essential (primary) hypertension; E11.9 Type 2 diabetes mellitus without complications; Z79.84 Long term (current) use of oral hypoglycemic drugs; I25.2 Old myocardial infarction | CPT/HCPCS: 99214 ==

== ENCOUNTER 2024-08-07 10:08 | Outpatient (CLI) | payer MEDICARE, SELFPAY ==
[2024-08-07 10:40] LABS: Chol HDL Ratio 3.66 mg/dL (0.0-4.40); Cholesterol 216 mg/dL (0-200); HDL Cholesterol 59 mg/dL (60-100); LDL Cholesterol Calculated 124 mg/dL (50-129); Triglycerides 163 mg/dL (0-150)
== END 2024-08-07 10:09 | disposition home or self-care (01) ==
LOC: LAB 10:11
PROVIDERS: PCP Family Medicine; Visit Provider Internal Medicine
DX: E78.5 Hyperlipidemia, unspecified (principal)
CPT/HCPCS: 36415; 80061

== ENCOUNTER → 2024-08-22 09:36 | Outpatient (BNVA) | payer MEDICARE, SELFPAY | PROVIDERS: PCP Family Medicine; Visit Provider Internal Medicine | DX: I25.10 Atherosclerotic heart disease of native coronary artery without angina pectoris (principal); I10 Essential (primary) hypertension; E78.5 Hyperlipidemia, unspecified; E11.9 Type 2 diabetes mellitus without complications; I25.2 Old myocardial infarction; Z79.84 Long term (current) use of oral hypoglycemic drugs | CPT/HCPCS: 99214 ==

== ENCOUNTER → 2024-12-05 10:41 | Outpatient (BNVA) | payer MEDICARE, SELFPAY | PROVIDERS: PCP Family Medicine; Visit Provider Internal Medicine | DX: E11.9 Type 2 diabetes mellitus without complications (principal); E78.5 Hyperlipidemia, unspecified | CPT/HCPCS: 99204 ==

== ENCOUNTER → 2024-12-16 09:51 | Outpatient (BNVA) | payer MEDICARE, SELFPAY | PROVIDERS: PCP Family Medicine; Visit Provider Physician Assistant | DX: M25.561 Pain in right knee (principal); M17.11 Unilateral primary osteoarthritis, right knee; S83.241A Other tear of medial meniscus, current injury, right knee, initial encounter; X58.XXXA Exposure to other specified factors, initial encounter | CPT/HCPCS: 73560; 73565; 99213 ==

== ENCOUNTER → 2025-01-15 14:48 | Outpatient (BNVA) | payer MEDICARE, SELFPAY | PROVIDERS: PCP Family Medicine; Visit Provider Internal Medicine | DX: I25.10 Atherosclerotic heart disease of native coronary artery without angina pectoris (principal); I10 Essential (primary) hypertension; E78.5 Hyperlipidemia, unspecified; E11.9 Type 2 diabetes mellitus without complications; Z79.84 Long term (current) use of oral hypoglycemic drugs | CPT/HCPCS: 99214 ==

== ENCOUNTER → 2025-03-09 13:39 | Outpatient (BNVA) | payer MEDICARE, SELFPAY | PROVIDERS: PCP Family Medicine; Visit Provider Nurse Practitioner Family | DX: L82.1 Other seborrheic keratosis (principal); L81.4 Other melanin hyperpigmentation; S80.862A Insect bite (nonvenomous), left lower leg, initial encounter; X58.XXXA Exposure to other specified factors, initial encounter; D23.39 Other benign neoplasm of skin of other parts of face; L57.8 Other skin changes due to chronic exposure to nonionizing radiation; L82.0 Inflamed seborrheic keratosis; L29.89 Other pruritus; R20.8 Other disturbances of skin sensation; Z78.9 Other specified health status; R58 Hemorrhage, not elsewhere classified; L53.8 Other specified erythematous conditions; D48.5 Neoplasm of uncertain behavior of skin | CPT/HCPCS: 11102; 17110; 99213 ==